=== PATIENT | male | born 1970 | race Caucasian/White ===

== ENCOUNTER → 2018-08-05 | Outpatient (REF) ==
--- NOTE | 2018-08-05 20:19 | Diagnostic Imaging Report ---
INDICATION: Left wrist pain post fall. AP, oblique, and lateral views of the left wrist are obtained. No fracture or acute bony abnormality is seen. Joint spaces are unremarkable. IMPRESSION: Negative left wrist. Dictated by: Dictated on workstation # [id number]
== END | disposition home or self-care (01) ==
LOC: RAD 15:09
PROVIDERS: ATTEND Family Medicine
CPT/HCPCS: 73110

== ENCOUNTER 2019-01-13 13:06 | Outpatient (CLI) | payer BC ==
[~2019-01-13] VITALS: Ht 180.3 cm; Wt 95.3 kg
[~2019-01-13 13:06] MED LIST: METF-479 PO
[2019-01-14] MEDS ORDERED: PANT40TA2 PO (11:48)
== END 2019-01-13 13:19 | disposition home or self-care (01) ==
LOC: PREOP 13:06
PROVIDERS: ATTEND Surgery
DX: Z01.818 Encounter for other preprocedural examination (principal)

== ENCOUNTER 2019-01-14 08:47 | Day surgery (SDC) | payer BC ==
[~2019-01-14] VITALS: Ht 180.3 cm; Wt 95.3 kg
[2019-01-14 09:10] VITALS: BP 139/96
[2019-01-14] MEDS ORDERED: LACTATED RINGERS 1,000 ML IV PRN (09:30)
[2019-01-14] MEDS ORDERED: HURRICAINE EXT TUBE (BENZOCAINE) XX ONE (10:15)
[2019-01-14] MEDS ORDERED: HURRICAINE EXT TUBE (BENZOCAINE) ONE (10:48)
[2019-01-14] MEDS ORDERED: proPOfol 200 MG/20 ML (DIPRIVAN) VIAL IV ONE ×2 (10:49→11:18)
[2019-01-14] MEDS ORDERED: MIDAZOLAM 2 MG/2 ML (VERSED) VIAL ONE (10:50)
--- NOTE | 2019-01-14 11:01 | Progress Note-Pre Operative ---
Pre-Operative Progress Note H&P Reviewed The H&P was reviewed, patient examined and no changes noted. Date Seen by Provider: Jan 14, 2019 Time Seen by Provider: 11: Date H&P Reviewed: Jan 14, 2019 Time H&P Reviewed: 11: Pre-Operative Diagnosis: gerd, hx polyps, diarrhea GERALDINE MATHIS DO Jan 14, 2019 11:01
--- OUTSIDE RECORDS SUMMARY | 2019-01-14 11:02 | XMS REPORT ---
Author Author MEME SHAKEEL [facility] Address [address] [place] [address] Care Team Providers Care Student Teacher Name Role Phone MEMEAMERICO DOUGHERTYHANY Unavailable PROBLEMS Type Condition ICD9-CM Code [id number] Code Onset Dates Condition Status SNOMED Code Problem Allergic rhinitis J30.9 Active 20973794 Problem Hx of renal calculi Z87.442 Active 269123232 Problem GERD (gastroesophageal reflux disease) K21.9 Active 866403232 Problem Hyperlipidemia E78.5 Active 19931879 Problem Right sided sciatica M54.31 Active 34794925 Problem Other elevated white blood cell count D72.828 Active 220508765 Problem Microalbuminuria R80.9 Active 112722807 Problem Type 2 diabetes mellitus with hyperglycemia E11.65 Active 186094866 Problem Onychomycosis B35.1 Active 097869000 Problem Essential hypertension I10 Active 11117363 ALLERGIES No Information ENCOUNTERS Encounter Location Date Diagnosis [place] [id number] [place] [address] 99405- 7024 Jun, Right sided sciatica M54.31 [place] [id number] [place] [address] 81551- 3142 Jun, [facility] [id number] [place] [address] 26004- 0993 May, [facility] [id number] [place] [address] 03450- 3748 May, Right ear pain H92.01 and Acute otitis externa of right ear , unspecified type H60.501 [facility] [id number] [place] [address] 63980- 2360 Mar, [facility] [address] 19173- 8675 Mar, Type 2 diabetes mellitus with hyperglycemia E11.65 ; GERD ( gastroesophageal reflux disease) K21.9 ; Right hip pain M25.551 ; Hyperlipidemia E78.5 and Essential hypertension I10 [place] [id number] [place] [address] 04316- 7965 Mar, [place] [address] 77753- 5974 January, 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 [place] [address] 43330- 7639 January, [place] [address] 26725- 2168 Nov, [place] [address] 16191- 2708 Nov, Other elevated white blood cell count D72.828 [place] [address] 64454- 6905 Nov, Type 2 diabetes mellitus with hyperglycemia E11.65 ; Hx of renal calculi Z87.442 ; Callus L84 ; Hyperlipidemia E78.5 and Essential hypertension I10 [place] [id number] [place] [address] 63148- 2951 Oct, Hx of renal calculi Z87.442 [place] [address] 53653- 0929 Oct, Type 2 diabetes mellitus with hyperglycemia E11.65 ; Hyperlipidemia E78.5 ; GERD (gastroesophageal reflux disease) K21.9 and Essential hypertension I10 [place] [address] 87359- 5113 Jul, [place] [address] 37801- 8468 May, [place] [address] 21110- 5856 Mar, Type 2 diabetes mellitus with hyperglycemia E11.65 ; Hyperlipidemia E78.5 ; GERD (gastroesophageal reflux disease) K21.9 ; Hx of renal calculi Z87.442 ; Essential hypertension I10 ; Encounter for immunization Z23 and Arm numbness R20.0 [place] [id number] [place] [address] 01459- 0946 Mar, Type 2 diabetes mellitus with hyperglycemia E11.65 ; Hyperlipidemia E78.5 and Essential hypertension I10 [place] [address] 30899- 3530 January, Type 2 diabetes mellitus with hyperglycemia E11.65 ; GERD ( gastroesophageal reflux disease) K21.9 ; Hyperlipidemia E78.5 ; Hx of renal calculi Z87.442 ; Allergic rhinitis J30.9 and Essential hypertension I10 [place] [address] 84552- 5646 January, Type 2 diabetes mellitus with hyperglycemia E11.65 [place] [address] 80506- 7255 January, [place] [address] 40634- 7512 Oct, Neuropathic pain M79.2 and Onychomycosis B35.1 [place] [address] 88689- 4234 Aug, [place] [address] 34145- 9421 Aug, Type 2 diabetes mellitus with hyperglycemia E11.65 ; GERD ( gastroesophageal reflux disease) K21.9 ; Hx of renal calculi Z87.442 ; Essential hypertension I10 ; Chronic cough R05 ; Chest pain, unspecified type R07.9 ; Dry skin dermatitis L85.3 ; Allergic rhinitis J30.9 ; Hyperlipidemia E78.5 and Encounter for immunization Z23 [place] [address] 48948- 6732 Aug, [place] [address] [place] [address]- 6273 Jun, [facility] [id number] [place] [address] 04671- 7357 Jun, [facility] [id number] [place] [address] 44653 -9439 Jun, [facility] [id number] [place] [address] 07702- 0238 Jun, [facility] [id number] [place] [address] 80087 -5804 Jun, Rib pain on right side R07.81 [facility] [id number] [place] [address] 75980- 2878 May, Chest pain, unspecified type R07.9 [facility] [id number] [place] [address] 12270- 7520 May, [facility] [id number] [place] [address] 08105 -8791 Mar, Chest pain, unspecified type R07.9 [facility] [id number] [place] [address] 40321- 4197 Mar, [facility] [id number] [place] [address] 88504- 2559 Mar, Type 2 diabetes mellitus with hyperglycemia E11.65 ; GERD ( gastroesophageal reflux disease) K21.9 and Hx of renal calculi Z87.442 [facility] [id number] [place] [address] 53832- 5259 Dec, [facility] [id number] [place] [address] 58520- 4384 Nov, [facility] [id number] [place] [address] 88578- 3563 Nov, Chronic cough R05 [facility] [id number] [place] [address] 68191- 4046 Nov, [facility] [id number] [place] [address] 68625- 4556 Nov, [facility] [id number] [place] [address] 901779- 7642 Nov, [facility] [id number] [place] [address] 74871- 4406 Nov, [facility] [address] 945632- 3517 Nov, Type 2 diabetes mellitus with hyperglycemia E11.65 ; Elevated TSH R94.6 ; Hyperlipidemia E78.5 ; Microalbuminuria R80.9 ; Tinea pedis B35.3 ; Chronic cough R05 ; GERD (gastroesophageal reflux disease) K21.9 ; Allergic rhinitis J30.9 and Hx of renal calculi Z87.442 [facility] [id number] [place] [address] 271268- 6941 Aug, [facility] [address] 80068- 3134 Aug, Hx of renal calculi Z87.442 [facility] [address] 412493- 3674 Aug, [facility] [id number] [place] [address] 75616- 1994 Aug, [facility] [id number] [place] [address] [id number]- 5145 Aug, [facility] [id number] [place] [address] 832889- 3561 Aug, Type 2 diabetes mellitus without complication E11.9 ; Elevated TSH R94.6 and Hyperlipidemia E78.5 [facility] [id number] [place] [address] 73480- 1463 Jul, [facility] [id number] [place] [address] 981627- 3428 Jun, [facility] [address] [address]- 5209 Mar, Abnormal thyroid blood test 794.5 [facility] [address] [place] [address]- 8995 Mar, [facility] [address] [place] [address]- 5336 Mar, Abnormal thyroid blood test 794.5 [facility] [address] [place] [address]- 8031 Mar, Abnormal thyroid blood test 794.5 [facility] [address] [place] [address] 91090- 9267 Mar, [facility] [address] [place] [address]- 8277 Mar, Diabetes type 2, uncontrolled 250.02 and Fungal infection of foot 110.4 [facility] [address] [address]- 0559 Mar, Left flank pain 789.09 [facility] [address] [place] [address]- 6337 January, Left flank pain 789.09 [facility] [address], [place] [address]- 5257 Dec, [facility] [address] [place] [address]- 4775 Dec, [facility] [address] [place] [address]- 8469 Dec, [facility] [address] [place] [address]- 7776 Nov, [facility] [address], [place] [address]- 8673 Nov, [facility] [address] [place] [address]- 7686 Nov, [facility] [place] [facility] [address] [id number] [place] [address]- 7047 Nov, [facility] [place] [facility] [address] [id number] [place] [address]- 3539 Oct, [facility] [place] [facility] [address] [id number] [place] [address]- 9130 30 Oct, 2014 [facility] [place] [facility] [address] [id number] [place] [address]- 3449 15 Oct, 2014 [facility] [place] [facility] [address] [id number] [place] [address]- 8206 15 Oct, 2014 [facility] [place] [facility] [address] [id number] [place] [address]- 5928 Oct, [facility] [place] [facility] [address] [id number] [place] [address]- 2058 Oct, [facility] [place] [facility] [address] [id number] [place] [address]- 7435 Aug, [facility] [place] [facility] [address] [id number] [place] [address]- 8033 15 Aug, 2014 [facility] [place] [facility] [address] [id number] [place] [address]- 8752 17 Jul, 2014 [facility] [place] [facility] [address] [id number] [place] [address]- 6418 17 Jul, 2014 [facility] [place] [facility] [address] [id number] [place] [address]- 2767 14 Jul, 2014 [facility] [place] [facility] [address] [id number] [place] [address]- 6756 14 Jul, 2014 [facility] [place] [facility] [address] [id number] [place] [address]- 6968 19 Jun, 2014 [facility] [place] [facility] [address] [id number] [place] [address]- 3275 19 Jun, 2014 [facility] [place] [facility] [address] [id number] [place] [address]- 9736 Jun, [facility] [place] [facility] [address] [id number] [place] [address]- 0159 Jun, [facility] [place] [facility] [address] [id number] [place] [address]- 9553 Mar, [facility] [place] [facility] [address] [id number] [place] [address]- 5965 Mar, [facility] [place] [facility] [address] [id number] [place] [address]- 3084 Mar, [facility] [place] [facility] [address] [id number] [place] [address]- 8996 Mar, [facility] [place] [facility] [address] [id number] [place] [address]- 3879 Mar, [facility] [place] [facility] [address] [id number] [place] [address]- 9231 Mar, [facility] [place] [facility] [address] [id number] [place] [address]- 5976 Mar, [facility] [place] [facility] [address] [id number] [place] [address]- 9601 Mar, [facility] [place] [facility] [address] [id number] [place] [address]- 3232 Mar, [facility] [place] [facility] [address] [id number] [place] [address]- 0354 Mar, [facility] [place] [facility] [address] [id number] [place] [address]- 6782 Mar, [facility] [place] [facility] [address] [id number] [place] [address]- 0655 Mar, [facility] [place] [facility] [address] [id number] [place] [address]- 8745 Mar, [facility] [place] [facility] [address] [id number] [place] [address]- 0569 Mar, [facility] [place] [facility] [address] [id number] [place] [address]- 3432 Mar, [facility] [address] [id number] [place] [address]- 6359 Mar, [facility] [address] [id number] [place] [address]- 4817 Mar, [facility] [address] [id number] [place] [address]- 7550 Mar, [facility] [address] [id number] [place] [address]- 5476 January, [facility] [address] [id number] [place] [address]- 6077 January, [facility] [address] [id number] [place] [address]- 3636 January, [facility] [address] [id number] [place] [address]- 8604 January, [facility] [address] [id number] [place] [address]- 4706 January, [facility] [address] [id number] [place] [address]- 5233 January, [facility] [address] [id number] [place] [address]- 7693 January, [facility] [place] [facility] [address] [id number] [place] [address]- 8369 January, [facility] [address] [id number] [place] 0409 January, [facility] [place] [facility] [address] [id number] [place] [address]- 6834 January, [facility] [place] [facility] [address] [id number] [place] [address]- 4170 Dec, [facility] [place] [facility] [address] [id number] [place] [address]- 5932 Dec, [facility] [place] [facility] [address] [id number] [place] [address]- 7349 Dec, [facility] [place] [facility] [address] [id number] [place] [address]- 5813 Dec, [facility] [place] [facility] [address] [id number] [place] [address]- 9638 Dec, [facility] [place] [facility] [address] [id number] [place] [address]- 9176 Dec, [facility] [place] [facility] [address] [id number] [place] [address]- 6262 Dec, [facility] [place] [facility] [address] [id number] [place] [address]- 1117 Dec, [facility] [place] [facility] [address] [id number] [place] [address]- 3990 Dec, [facility] [place] [facility] [address] [id number] [place] [address]- 6141 Dec, [facility] [place] [facility] [address] [id number] [place] [address]- 5314 Dec, [facility] [place] [facility] [address] [id number] [place] [address]- 1949 Dec, [facility] [place] [facility] [address] [id number] [place] [address]- 5692 Dec, [facility] [place] [facility] [address] [id number] [place] [address]- 6791 Dec, [facility] [place] [facility] [address] [id number] [place] [address]- 4025 Nov, [facility] [place] [facility] [address] [id number] [place] [address]- 0433 Nov, [facility] [place] [facility] [address] [id number] [place] [address]- 8068 Nov, [facility] [place] [facility] [address] [id number], [place] [address]- 1559 Nov, [facility] [place] [facility] [address] [id number] [place] [address]- 4336 Aug, [facility] [place] [facility] [address] [id number] [place] 2078 Aug, [facility] [place] [facility] [address] [id number] [place] [address]- 8231 Aug, [facility] [place] [facility] [address] [id number] [place] [address]- 2961 Aug, [facility] [place] [facility] [address] [id number] [place] [address]- 7208 Aug, [facility] [place] [facility] [address] [id number] [place] [address]- 1437 Aug, [facility] [place] [facility] [address] [id number] [place] [address]- 9847 Jul, [facility] [place] [facility] [address] [id number] [place] [address]- 9455 Jul, [facility] [place] [facility] [address] [id number] [place] [address]- 8530 May, [facility] [place] [facility] [address] [facility] [id number] [place] [address]- 4021 May, [facility] [place] [facility] [address] [id number], [place] [address]- 7585 Mar, [facility] [place] [facility] [address] [id number] [place] [address]- 4863 Mar, [facility] [place] [facility] [address] [id number] [place] [address]- 2991 Mar, [facility] [place] [facility] [address] [id number] [place] [address]- 5420 Mar, [facility] [place] [facility] [address] [facility] [id number] [place] [address]- 4346 Mar, [facility] [place] [facility] [address] [id number] [place] [address]- 5352 11 Mar, 2013 [facility] [address] [id number] [place] [address]- 8979 11 Mar, 2013 [facility] [place] [facility] [address] [id number] [place] [address]- 2281 10 Mar, 2013 [facility] [address] [id number] [place] [address]- 0876 17 Dec, 2012 [facility] [place] [facility] [address] [id number] [place] [address]- 3416 16 Dec, 2012 [facility] [address] [id number] [place] [address]- 6733 Dec, [facility] [place] [facility] [address] [id number] [place] [address]- 7542 Dec, [facility] [place] [facility] [address] [id number] [place] [address]- 1483 Dec, [facility] [address] [id number] [place] [address]- 3192 Nov, [facility] [address] [id number] [place] [address]- 9028 Nov, [facility] [address] [id number] [place] [address]- 9983 Oct, [facility] [address] [id number] [place] [address]- 7338 Oct, [facility] [place] [facility] [address] [id number] [place] [address]- 3656 Oct, [facility] [place] [facility] [address] [id number] [place] [address]- 9497 Oct, [facility] [place] [facility] [address] [id number] [place] [address]- 5301 Aug, [facility] [place] [facility] [address] [id number] [place] [address]- 5182 Aug, [facility] [place] [facility] [address] [id number] [place] [address]- 3503 Aug, [facility] [place] [facility] [address] [id number] [place] [address]- 5216 Aug, [facility] [place] [facility] [address] [id number] [place] [address]- 8916 Aug, [facility] [place] [facility] [address] [id number] [place] [address]- 0529 Aug, [facility] [place] [facility] [address] [id number] [place] [address]- 4860 Jul, [facility] [place] [facility] [address] [id number] [place] 8755 Jul, [facility] [place] [facility] [address] [facility] [id number] [place] [address]- 8151 Jun, [facility] [place] [facility] [address] [id number] [place] [address]- 8419 Jun, [facility] [place] [facility] [address] [id number] [place] [address]- 9839 May, [facility] [place] [facility] [address] [facility] [id number] [place] [address]- 0266 May, [facility] [place] [facility] [address] [id number], [place] [address] May, [facility] [place] [facility] [address] [id number], [place] [address] Mar, [facility] [place] [facility] [address] [id number] [place] [address] Mar, [facility] [place] [facility] [address] [facility] [id number] [place] [address] Mar, [facility] [place] [facility] [address] [facility] [id number] [place] [address] Mar, [facility] [place] [facility] [address] [id number] [place] [address] 07 Mar, 2012 [facility] [address] [id number] [place] [address] Mar, [facility] [place] [facility] [address] [id number] [place] [address] Mar, [facility] [address] [id number] [place] [address] January, [facility] [address] [id number] [place] [address] January, [facility] [address] [id number] [place] [address] January, [facility] [address] [id number] [place] [address] January, [facility] [address] [id number] [place] [address] January, [facility] [address] [id number] [place] [address] Nov, [facility] [address] [id number] [place] [address] Nov, [facility] [address] [id number] [place] [address] Nov, [facility] [place] [facility] [address] [id number] [place] [address] Nov, [facility] [address] [id number] [place] [address] Nov, [facility] [place] [facility] [address] [id number] [place] [address] Oct, [facility] [place] [facility] [address] [id number] [place] [address] Oct, [facility] [place] [facility] [address] [id number] [place] [address] Aug, [facility] [address] [facility] [id number], [place] [address] Aug, [facility] [address] [id number] [address] Aug, [facility] [address] [facility] [id number], [place] [address] Aug, [facility] [address] [id number], [place] [address] Jul, [facility] [address] [facility] [id number][place] [address] Jul, [facility] [address] [facility] [id number], [place] [address] Mar, IMMUNIZATIONS No Known Immunizations SOCIAL HISTORY Never Assessed REASON FOR VISIT Requests return call PLAN OF CARE VITAL SIGNS MEDICATIONS Medication Instructions Dosage Frequency Start Date End Date Duration Status Pen [place] 32G X 4 MM use as directed Dec, Active RESULTS No Results PROCEDURES No Known procedures INSTRUCTIONS MEDICATIONS ADMINISTERED No Known Medications MEDICAL (GENERAL) HISTORY Type Description Date Medical History diabetes mellitus Medical History hypertension Medical History kidney stones Medical History acid reflux Medical History chronic pain Medical History Dyslipidemia Hospitalization History Kidney [place], [place]
--- OUTSIDE RECORDS SUMMARY | 2019-01-14 11:03 | XMS REPORT ---
Author Author VLADO KENYON Organization [facility] Address [address] [place] [address] Care Team Providers Care Recording Artist Name Role Phone VALDO KENYON Unavailable PROBLEMS Type Condition ICD9-CM Code AAN56-HE Code Onset Dates Condition Status SNOMED Code Problem Allergic rhinitis J30.9 Active 51600010 Problem Hx of renal calculi Z87.442 Active 714500297 Problem GERD (gastroesophageal reflux disease) K21.9 Active 485258691 Problem Hyperlipidemia E78.5 Active 65619283 Problem Right sided sciatica M54.31 Active 66690432 Problem Other elevated white blood cell count D72.828 Active 437462791 Problem Microalbuminuria R80.9 Active 321891938 Problem Type 2 diabetes mellitus with hyperglycemia E11.65 Active 030092046 Problem Onychomycosis B35.1 Active 824488036 Problem Essential hypertension I10 Active 35002991 ALLERGIES No Information ENCOUNTERS Encounter Location Date Diagnosis [place] [id number] [place] [address] 47576- 6695 13 Jun, 2018 Right sided sciatica M54.31 [facility] [id number] [place] [address] 19907- 5797 Jun, [facility] [address] [place] [id number] [place] [address] 26321- 3768 May, [facility] [id number] [place] [address] 10275- 1122 May, Right ear pain H92.01 and Acute otitis externa of right ear , unspecified type H60.501 [facility] [id number] [place] [address] 84243- 3486 Mar, [facility] [address] [place] [address] [id number] [place] [address] 14912- 6812 Mar, Type 2 diabetes mellitus with hyperglycemia E11.65 ; GERD ( gastroesophageal reflux disease) K21.9 ; Right hip pain M25.551 ; Hyperlipidemia E78.5 and Essential hypertension I10 [place] [address] 30705- 2662 Mar, [place] [address] 85046- 0072 January, 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 [place] [address] 54604- 8507 January, [place] [address] 78412- 4571 Nov, [place] [address] 45242- 0070 Nov, Other elevated white blood cell count D72.828 [place] [address] 91566- 5569 Nov, Type 2 diabetes mellitus with hyperglycemia E11.65 ; Hx of renal calculi Z87.442 ; Callus L84 ; Hyperlipidemia E78.5 and Essential hypertension I10 [place] [address] [place] [id number] [place] [address] 04505- 2644 Oct, Hx of renal calculi Z87.442 [place] [address] [place] [id number] [place] [address] 76986- 1946 Oct, Type 2 diabetes mellitus with hyperglycemia E11.65 ; Hyperlipidemia E78.5 ; GERD (gastroesophageal reflux disease) K21.9 and Essential hypertension I10 [place] [address] 87163- 6962 Jul, [place] [address] 81983- 0358 May, [place] [address] 82485- 4639 Mar, Type 2 diabetes mellitus with hyperglycemia E11.65 ; Hyperlipidemia E78.5 ; GERD (gastroesophageal reflux disease) K21.9 ; Hx of renal calculi Z87.442 ; Essential hypertension I10 ; Encounter for immunization Z23 and Arm numbness R20.0 [place] [address] 52093- 7475 Mar, Type 2 diabetes mellitus with hyperglycemia E11.65 ; Hyperlipidemia E78.5 and Essential hypertension I10 [place] [address] 08911- 6862 January, Type 2 diabetes mellitus with hyperglycemia E11.65 ; GERD ( gastroesophageal reflux disease) K21.9 ; Hyperlipidemia E78.5 ; Hx of renal calculi Z87.442 ; Allergic rhinitis J30.9 and Essential hypertension I10 [place] [address] 92052- 3328 January, Type 2 diabetes mellitus with hyperglycemia E11.65 [place] [address] 18013- 7751 January, [place] [address] 08837- 0076 Oct, Neuropathic pain M79.2 and Onychomycosis B35.1 [place] [address] 72555- 0178 Aug, [place] [address] 81370- 7828 Aug, Type 2 diabetes mellitus with hyperglycemia E11.65 ; GERD ( gastroesophageal reflux disease) K21.9 ; Hx of renal calculi Z87.442 ; Essential hypertension I10 ; Chronic cough R05 ; Chest pain, unspecified type R07.9 ; Dry skin dermatitis L85.3 ; Allergic rhinitis J30.9 ; Hyperlipidemia E78.5 and Encounter for immunization Z23 [place] [address] 28210- 9173 Aug, [place] [address] [place] [address]- 3713 Jun, [facility] [address] [place] [id number] [place] [address] 12788- 0050 Jun, [facility] [address] [address] [id number] [place] [address] 59544 -7839 Jun, [facility] [address] [place] [address] [id number] [place] [address] 08454- 3597 Jun, [facility] [id number] [place] [address] 96783 -9673 Jun, Rib pain on right side R07.81 [facility] [address] 66354- 1469 May, Chest pain, unspecified type R07.9 [facility] [address] [place] [address] [id number] [place] [address] 16926- 6930 May, [facility] [id number] [place] [address] 79034 -1829 Mar, Chest pain, unspecified type R07.9 [facility] [address] [place] [address] [id number] [place] [address] 82278- 5634 Mar, [facility] [address] [place] [address] [id number] [place] [address] 84752- 9890 Mar, Type 2 diabetes mellitus with hyperglycemia E11.65 ; GERD ( gastroesophageal reflux disease) K21.9 and Hx of renal calculi Z87.442 [facility] [address] [place] [address] [id number] [place] [address] 50318- 1947 Dec, [facility] [address] [place] [address] [id number] [place] [address] 43785- 7953 Nov, [facility] [address] [place] [address] [id number] [place] [address] 00363- 4634 Nov, Chronic cough R05 [facility] [address] [place] [id number] [place] [address] 00444- 2789 Nov, [facility] [id number] [place] [address] 20041- 1162 Nov, [facility] [address] [place] [address] [id number] [place] [address] 92758- 4771 Nov, [facility] [address] [place] [address] [id number] [place] [address] 07401- 9168 Nov, [facility] [address] 10590- 4687 Nov, Type 2 diabetes mellitus with hyperglycemia E11.65 ; Elevated TSH R94.6 ; Hyperlipidemia E78.5 ; Microalbuminuria R80.9 ; Tinea pedis B35.3 ; Chronic cough R05 ; GERD (gastroesophageal reflux disease) K21.9 ; Allergic rhinitis J30.9 and Hx of renal calculi Z87.442 [facility] [address] [place] [id number] [place] [address] 59758- 9003 Aug, [facility] [address] [place] [id number] [place] [address] 69122- 7327 Aug, Hx of renal calculi Z87.442 [facility] [address] [place] [id number] [place] [address] 91850- 8857 Aug, [facility] [id number] [place] [address] 75043- 4511 Aug, [facility] [address] [place] [id number] [place] [address] 59388- 9942 Aug, [facility] [address] [place] [id number] [place] [address] 32222- 9884 Aug, Type 2 diabetes mellitus without complication E11.9 ; Elevated TSH R94.6 and Hyperlipidemia E78.5 [facility] [address] [place] [id number] [place] [address] 040340- 0099 Jul, [facility] [id number] [place] [address] 065977- 0534 Jun, [facility] [address] [place] [id number] [address]- 8508 Mar, Abnormal thyroid blood test 794.5 [facility] [address] [address]- 9364 Mar, [facility] [address] [address]- 8223 Mar, Abnormal thyroid blood test 794.5 [facility] [id number] [place] [address] 95279- 0546 Mar, Abnormal thyroid blood test 794.5 [facility] [id number] [place] [address] 47070- 9261 Mar, [facility] [address] [id number] [address]- 7049 Mar, Diabetes type 2, uncontrolled 250.02 and Fungal infection of foot 110.4 [facility] [address] [address]- 8452 Mar, Left flank pain 789.09 [facility] [address] [address]- 1538 January, Left flank pain 789.09 [facility] [address] [address]- 1610 Dec, [facility] [address] [place] [address]- 2691 Dec, [facility] [address] [address]- 2525 Dec, [facility] [address] [address]- 3475 Nov, [facility] [address] [address]- 9095 Nov, [facility] [address] 3846 Nov, [facility] [place] [facility] [address] [id number] [place] [address]- 8047 Nov, [facility] [place] [facility] [address] [id number] [place] [address]- 3804 Oct, [facility] [place] [facility] [address] [id number] [place] [address]- 5240 30 Oct, 2014 [facility] [place] [facility] [address] [id number] [place] [address]- 6260 15 Oct, 2014 [facility] [place] [facility] [address] [id number] [place] [address]- 4049 15 Oct, 2014 [facility] [place] [facility] [address] [id number] [place] [address]- 3004 Oct, [facility] [place] [facility] [address] [id number] [place] [address]- 3905 Oct, [facility] [place] [facility] [address] [id number] [place] [address]- 7141 15 Aug, 2014 [facility] [place] [facility] [address] [id number] [place] [address]- 0456 15 Aug, 2014 [facility] [place] [facility] [address] [id number] [place] [address]- 6738 17 Jul, 2014 [facility] [place] [facility] [address] [id number] [place] [address]- 2795 17 Jul, 2014 [facility] [place] [facility] [address] [id number] [place] [address]- 0696 14 Jul, 2014 [facility] [place] [facility] [address] [id number] [place] [address]- 3645 14 Jul, 2014 [facility] [place] [facility] [address] [id number] [place] [address]- 1565 19 Jun, 2014 [facility] [place] [facility] [address] [id number] [place] [address]- 9178 19 Jun, 2014 [facility] [place] [facility] [address] [id number] [place] [address]- 4269 Jun, [facility] [place] [facility] [address] [id number] [place] [address]- 7961 Jun, [facility] [place] [facility] [address] [id number] [place] [address]- 9555 Mar, [facility] [place] [facility] [address] [id number] [place] [address]- 0979 Mar, [facility] [place] [facility] [address] [id number] [place] [address]- 7924 Mar, [facility] [place] [facility] [address] [id number] [place] [address]- 5949 Mar, [facility] [place] [facility] [address] [id number] [place] [address]- 4069 Mar, [facility] [place] [facility] [address] [id number] [place] [address]- 8612 Mar, [facility] [place] [facility] [address] [id number] [place] [address]- 7610 Mar, [facility] [place] [facility] [address] [id number] [place] [address]- 4885 Mar, [facility] [place] [facility] [address] [id number] [place] [address]- 9217 Mar, [facility] [place] [facility] [address] [id number] [place] [address]- 0940 Mar, [facility] [place] [facility] [address] [id number], [place] [address]- 1572 Mar, [facility] [place] [facility] [address] [id number] [place] [address]- 6123 Mar, [facility] [place] [facility] [address] [id number] [place] [address]- 7739 Mar, [facility] [place] [facility] [address] [id number] [place] [address]- 2154 Mar, [facility] [place] [facility] [address] [id number] [place] [address]- 3727 Mar, [facility] [place] [facility] [address] [id number] [place] [address]- 7167 Mar, [facility] [place] [facility] [address] [id number] [place] [address]- 5150 Mar, [facility] [place] [facility] [address] [id number] [place] [address]- 8732 Mar, [facility] [place] [facility] [address] [id number] [place] [address]- 8974 January, [facility] [place] [facility] [address] [id number] [place] [address]- 5642 January, [facility] [place] [facility] [address] [id number] [place] [address]- 3975 January, [facility] [place] [facility] [address] [id number] [place] [address]- 4405 January, [facility] [place] [facility] [address] [id number] [place] [address]- 1394 January, [facility] [place] [facility] [address] [id number] [place] [address]- 5963 January, [facility] [place] [facility] [address] [id number] [place] [address]- 7896 January, [facility] [place] [facility] [address] [id number] [place] [address]- 3517 January, [facility] [place] [facility] [address] [id number] [place] [address]- 3325 January, [facility] [place] [facility] [address] [id number] [place] 4468 January, [facility] [place] [facility] [address] [id number] [place] [address]- 9666 Dec, [facility] [place] [facility] [address] [id number] [place] [address]- 1004 Dec, [facility] [place] [facility] [address] [id number] [place] [address]- 5103 Dec, [facility] [place] [facility] [address] [id number] [place] [address]- 5774 Dec, [facility] [place] [facility] [address] [id number] [place] [address]- 9311 Dec, [facility] [place] [facility] [address] [id number] [place] [address]- 6280 Dec, [facility] [address] [id number] [place] [address]- 5219 Dec, [facility] [place] [facility] [address] [id number] [place] [address]- 1378 Dec, [facility] [address] [id number] [place] [address]- 8578 Dec, [facility] [place] [facility] [address] [id number] [place] [address]- 7924 Dec, [facility] [place] [facility] [address] [id number] [place] [address]- 8430 Dec, [facility] [place] [facility] [address] [id number] [place] [address]- 8143 Dec, [facility] [place] [facility] [address] [id number] [place] [address]- 0366 Dec, [facility] [place] [facility] [address] [id number] [place] [address]- 2759 Dec, [facility] [place] [facility] [address] [id number] [place] [address]- 0981 Nov, [facility] [place] [facility] [address] [id number] [place] [address]- 0608 Nov, [facility] [place] [facility] [address] [id number] [place] [address]- 6693 Nov, [facility] [place] [facility] [address] [id number] [place] [address]- 8462 Nov, [facility] [place] [facility] [address] [id number] [place] [address]- 8609 Aug, [facility] [place] [facility] [address] [id number] [place] [address]- 4699 Aug, [facility] [place] [facility] [address] [id number] [place] [address]- 2448 Aug, [facility] [place] [facility] [address] [id number] [place] [address]- 1957 Aug, [facility] [place] [facility] [address] [id number] [place] 0582 Aug, [facility] [place] [facility] [address] [id number] [place] [address]- 5266 Aug, [facility] [place] [facility] [address] [id number] [place] [address]- 9728 Jul, [facility] [place] [facility] [address] [id number] [place] [address]- 6818 Jul, [facility] [place] [facility] [address] [id number] [place] [address]- 4312 May, [facility] [place] [facility] [address] [id number] [place] [address]- 1725 May, [facility] [place] [facility] [address] [id number], [place] [address]- 3704 Mar, [facility] [place] [facility] [address] [id number] [place] [address]- 2064 Mar, [facility] [place] [facility] [address] [id number] [place] [address]- 8871 Mar, [facility] [place] [facility] [address] [id number] [place] [address]- 3252 Mar, [facility] [place] [facility] [address] [id number] [place] [address]- 8043 Mar, [facility] [place] [facility] [address] [id number] [place] [address]- 3674 11 Mar, 2013 [facility] [address] [id number] [place] [address]- 9268 11 Mar, 2013 [facility] [address] [id number] [place] [address]- 3510 10 Mar, 2013 [facility] [address] [id number] [place] [address]- 7264 17 Dec, 2012 [facility] [address] [id number] [place] [address]- 6006 16 Dec, 2012 [facility] [address] [id number] [place] [address]- 6293 15 Dec, 2012 [facility] [address] [id number] [place] [address]- 4270 Dec, [facility] [address] [id number] [place] [address]- 6997 Dec, [facility] [address] [id number] [place] [address]- 5299 Nov, [facility] [address] [id number] [place] [address]- 4793 Nov, [facility] [address] [id number] [place] [address]- 8044 Oct, [facility] [address] [id number] [place] [address]- 7671 Oct, [facility] [address] [id number] [place] [address]- 4037 Oct, [facility] [address] [id number] [place] [address]- 9326 Oct, [facility] [address] [id number] [place] [address]- 9976 Aug, [facility] [address] [id number] [place] [address]- 0861 Aug, [facility] [place] [facility] [address] [id number] [place] [address]- 0645 Aug, [facility] [place] [facility] [address] [id number] [place] [address]- 3765 Aug, [facility] [place] [facility] [address] [id number] [place] 3134 Aug, [facility] [place] [facility] [address] [id number] [place] [address]- 2744 Aug, [facility] [place] [facility] [address] [id number] [place] [address]- 8190 Jul, [facility] [place] [facility] [address] [id number] [place] [address]- 9974 Jul, [facility] [place] [facility] [address] [id number] [place] [address]- 4538 Jun, [facility] [place] [facility] [address] [id number] [place] [address]- 2062 Jun, [facility] [place] [facility] [address] [id number] [place] [address]- 2527 May, [facility] [place] [facility] [address] [id number] [place] [address]- 7708 May, [facility] [place] [facility] [address] [id number] [place] [address]- 3711 May, [facility] [place] [facility] [address] [id number], [place] [address]- 4072 Mar, [facility] [place] [facility] [address] [id number] [place] [address]- 9741 Mar, [facility] [place] [facility] [address] [id number] [place] [address]- 2140 Mar, [facility] [place] [facility] [address] [id number] [place] [address]- 7138 Mar, [facility] [place] [facility] [address] [id number] [place] [address]- 0070 07 Mar, 2012 [facility] [place] [facility] [address] [id number] [place] [address] Mar, [facility] [place] [facility] [address] [id number] [place] [address] Mar, [facility] [place] [facility] [address] [id number] [place] [address] January, [facility] [place] [facility] [address] [id number] [place] [address] January, [facility] [place] [facility] [address] [id number] [place] [address] January, [facility] [place] [facility] [address] [id number] [place] [address] January, [facility] [place] [facility] [address] [id number] [place] [address] January, [facility] [place] [facility] [address] [id number] [place] [address] Nov, [facility] [place] [facility] [address] [id number] [place] [address] 14 Nov, 2011 [facility] [place] [facility] [address] [id number] [place] [address] Nov, [facility] [place] [facility] [address] [id number] [place] [address] 08 Nov, 2011 [facility] [place] [facility] [address] [id number] [place] [address] Nov, [facility] [place] [facility] [address] [id number] [place] [address] Oct, [facility] [place] [facility] [address] [id number] [place] [address] Oct, [facility] [place] [facility] [address] [id number] [place] [address] Aug, [facility] [address] [id number], [place] [address] Aug, [facility] [address] [id number] [address] Aug, [facility] [address] [id number], [place] [address] Aug, [facility] [id number], [place] [address] Jul, [facility] [address] [id number] [address] Jul, [facility] [address] [id number] [address] Mar, IMMUNIZATIONS No Known Immunizations SOCIAL HISTORY Never Assessed REASON FOR VISIT Requests return call PLAN OF CARE VITAL SIGNS MEDICATIONS Unknown Medications RESULTS No Results PROCEDURES No Known procedures INSTRUCTIONS MEDICATIONS ADMINISTERED No Known Medications MEDICAL (GENERAL) HISTORY Type Description Date Medical History diabetes mellitus Medical History hypertension Medical History kidney stones Medical History acid reflux Medical History chronic pain Medical History Dyslipidemia Hospitalization History Kidney stones, [facility]
--- OUTSIDE RECORDS SUMMARY | 2019-01-14 11:03 | XMS REPORT ---
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 Name Role Phone VALDO KENYON Unavailable PROBLEMS Type Condition ICD9-CM Code YMC37-FR Code Onset Dates Condition Status SNOMED Code Problem Allergic rhinitis J30.9 Active 50038349 Problem Hx of renal calculi Z87.442 Active 459413384 Problem GERD (gastroesophageal reflux disease) K21.9 Active 492295488 Problem Hyperlipidemia E78.5 Active 13651939 Problem Right sided sciatica M54.31 Active 55607532 Problem Other elevated white blood cell count D72.828 Active 570752104 Problem Microalbuminuria R80.9 Active 909838675 Problem Type 2 diabetes mellitus with hyperglycemia E11.65 Active 757177943 Problem Onychomycosis B35.1 Active 211117550 Problem Essential hypertension I10 Active 20603276 ALLERGIES Substance Reaction Event Type Date Status Metformin Diarrhea Drug Allergy May, Active ENCOUNTERS Encounter Location Date Diagnosis [facility] [id number] [address] Jun, Right sided sciatica M54.31 [facility] [id number] [address] 7295 Jun, [facility] [address] [address] May, [facility] [address] [address] May, Right ear pain H92.01 and Acute otitis externa of right ear , unspecified type H60.501 [facility] [id number] [address] 39[address] Mar, [facility] [id number] [place] [address] 62416- 4087 Mar, Type 2 diabetes mellitus with hyperglycemia E11.65 ; GERD ( gastroesophageal reflux disease) K21.9 ; Right hip pain M25.551 ; Hyperlipidemia E78.5 and Essential hypertension I10 [place] [id number] [place] [address] 27249- 9114 Mar, [place] [address] [address]- [address]99 January, 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 [place] [address] [address]- 3917 January, [place] [address] [address]45- 2907 Nov, [place] [address] [address]- 2699 Nov, Other elevated white blood cell count D72.828 [place] [address] [address]- 6463 Nov, Type 2 diabetes mellitus with hyperglycemia E11.65 ; Hx of renal calculi Z87.442 ; Callus L84 ; Hyperlipidemia E78.5 and Essential hypertension I10 [place] [id number] [place] [address] 82571- 1806 Oct, Hx of renal calculi Z87.442 [place] [id number] [place] [address] 30667- 4755 Oct, Type 2 diabetes mellitus with hyperglycemia E11.65 ; Hyperlipidemia E78.5 ; GERD (gastroesophageal reflux disease) K21.9 and Essential hypertension I10 [place] [address] [address]- 1092 Jul, [place] [id number] [place] [address] 99317- 0536 May, [place] [address] [id number]- 2546 Mar, Type 2 diabetes mellitus with hyperglycemia E11.65 ; Hyperlipidemia E78.5 ; GERD (gastroesophageal reflux disease) K21.9 ; Hx of renal calculi Z87.442 ; Essential hypertension I10 ; Encounter for immunization Z23 and Arm numbness R20.0 [place] [id number] [place] [address] 90059- 1017 Mar, Type 2 diabetes mellitus with hyperglycemia E11.65 ; Hyperlipidemia E78.5 and Essential hypertension I10 [place] [id number] [place] [address] 65049- 7736 January, Type 2 diabetes mellitus with hyperglycemia E11.65 ; GERD ( gastroesophageal reflux disease) K21.9 ; Hyperlipidemia E78.5 ; Hx of renal calculi Z87.442 ; Allergic rhinitis J30.9 and Essential hypertension I10 [place] [id number] [place] [address] 25853- 8359 January, Type 2 diabetes mellitus with hyperglycemia E11.65 [place] [address] [address]- 5568 January, [place] [address] 69289- 4365 Oct, Neuropathic pain M79.2 and Onychomycosis B35.1 [place] [id number] [place] [address] 75736- 1414 Aug, [place] [address] 07076- 2235 Aug, Type 2 diabetes mellitus with hyperglycemia E11.65 ; GERD ( gastroesophageal reflux disease) K21.9 ; Hx of renal calculi Z87.442 ; Essential hypertension I10 ; Chronic cough R05 ; Chest pain, unspecified type R07.9 ; Dry skin dermatitis L85.3 ; Allergic rhinitis J30.9 ; Hyperlipidemia E78.5 and Encounter for immunization Z23 [place] [id number] [place] [address] 92003- 3213 Aug, [facility] [id number] [place] [address] 80981- 7949 Jun, [facility] [id number] [place] [address] 10059- 7982 Jun, [facility] [id number] [place] [address] 63961 -6763 Jun, [facility] [address] 27159- 3663 Jun, [facility] [id number] [place] [address] 34532 -7219 Jun, Rib pain on right side R07.81 [facility] [id number] [place] [address] 56146- 6476 May, Chest pain, unspecified type R07.9 [facility] [address] 70064- 6842 May, [facility] [id number] [place] [address] 69691 -3353 Mar, Chest pain, unspecified type R07.9 [facility] [id number] [place] [address] 53713- 5104 Mar, [facility] [id number] [place] [address] 73887- 2477 Mar, Type 2 diabetes mellitus with hyperglycemia E11.65 ; GERD ( gastroesophageal reflux disease) K21.9 and Hx of renal calculi Z87.442 [facility] [id number] [place] [address] 35449- 2252 Dec, [facility] [address] 38437- 7648 Nov, [facility] [id number] [place] [address] 18145- 4305 Nov, Chronic cough R05 [facility] [address] 09742- 7048 Nov, [facility] [id number] [place] [address] 56814- 2509 Nov, [facility] [id number] [place] [address] 94413- 0538 Nov, [facility] [id number] [place] [address] 203786- 8244 Nov, [facility] [address] 891695- 2783 Nov, Type 2 diabetes mellitus with hyperglycemia E11.65 ; Elevated TSH R94.6 ; Hyperlipidemia E78.5 ; Microalbuminuria R80.9 ; Tinea pedis B35.3 ; Chronic cough R05 ; GERD (gastroesophageal reflux disease) K21.9 ; Allergic rhinitis J30.9 and Hx of renal calculi Z87.442 [place] [address] 61494- 1968 Aug, [facility] [id number] [place] [address] 85659- 0857 Aug, Hx of renal calculi Z87.442 [place] [id number] [place] [address] 924939- 6239 Aug, [facility] [id number] [place] [address] 620123- 5740 Aug, [facility] [id number] [place] [address] 46426- 8175 Aug, [facility] [id number] [place] [address] 035750- 6727 Aug, Type 2 diabetes mellitus without complication E11.9 ; Elevated TSH R94.6 and Hyperlipidemia E78.5 [facility] [id number] [place] [address] 218959- 0576 Jul, [facility] [id number] [place] [address] 560143- 0516 Jun, [facility] [id number] [address]- 8394 Mar, Abnormal thyroid blood test 794.5 [facility] [address] [address]- 9540 Mar, [facility] [address] [address]- 0130 Mar, Abnormal thyroid blood test 794.5 [facility] [address] [address]- 7038 Mar, Abnormal thyroid blood test 794.5 [facility] [id number] [place] [address] 98081- 6745 Mar, [facility] [address] [address]- 0373 Mar, Diabetes type 2, uncontrolled 250.02 and Fungal infection of foot 110.4 [facility] [address] [address]- 9884 Mar, Left flank pain 789.09 [facility] [id number] [address]- 4084 January, Left flank pain 789.09 [facility] [address] [address]- 0784 Dec, [facility] [address] [address]- 7051 Dec, [facility] [id number] [address]- 8692 Dec, [facility] [address] [address]- 6186 Nov, [facility] [address] [address]- 9246 Nov, [facility] [address] [address]- 3455 Nov, [facility] [place] [facility] [address] [id number] [place] [address]- 2909 Nov, [facility] [place] [facility] [address] [id number] [place] [address]- 6287 Oct, [facility] [place] [facility] [address] [facility] [id number] [place] [address]- 1258 Oct, [facility] [place] [facility] [address] [id number] [place] [address]- 1562 Oct, [facility] [place] [facility] [address] [id number] [place] [address]- 5075 Oct, [facility] [place] [facility] [address] [facility] [id number] [place] [address]- 6494 Oct, [facility] [place] [facility] [address] [id number] [place] [address]- 6371 Oct, [facility] [place] [facility] [address] [id number] [place] [address]- 5851 Aug, [facility] [place] [facility] [address] [id number] [place] [address]- 4689 Aug, [facility] [place] [facility] [address] [facility] [id number] [place] [address]- 7895 Jul, [facility] [place] [facility] [address] [id number] [place] [address]- 6428 17 Jul, 2014 [facility] [place] [facility] [address] [id number] [place] [address]- 8505 14 Jul, 2014 [facility] [place] [facility] [address] [id number] [place] [address]- 1229 14 Jul, 2014 [facility] [place] [facility] [address] [facility] [id number] [place] [address]- 9725 19 Jun, 2014 [facility] [place] [facility] [address] [id number] [place] [address]- 7346 19 Jun, 2014 [facility] [place] [facility] [address] [id number] [place] [address]- 2792 Jun, [facility] [place] [facility] [address] [id number] [place] [address]- 8804 Jun, [facility] [place] [facility] [address] [id number] [place] [address]- 5930 Mar, [facility] [place] [facility] [address] [id number] [place] [address]- 3862 Mar, [facility] [place] [facility] [address] [id number] [place] [address]- 3851 Mar, [facility] [place] [facility] [address] [id number] [place] [address]- 9218 15 Mar, 2014 [facility] [place] [facility] [address] [id number] [place] [address]- 4940 Mar, [facility] [place] [facility] [address] [id number] [place] [address]- 5811 Mar, [facility] [place] [facility] [address] [id number] [place] [address]- 4248 Mar, [facility] [place] [facility] [address] [id number] [place] [address]- 4750 Mar, [facility] [place] [facility] [address] [id number] [place] [address]- 5911 Mar, [facility] [place] [facility] [address] [id number] [place] [address]- 2164 Mar, [facility] [place] [facility] [address] [id number] [place] [address]- 9578 Mar, [facility] [place] [facility] [address] [id number] [place] [address]- 9276 Mar, [facility] [place] [facility] [address] [id number] [place] [address]- 1708 Mar, [facility] [place] [facility] [address] [id number] [place] [address]- 8075 Mar, [facility] [place] [facility] [address] [id number] [place] [address]- 6165 Mar, [facility] [place] [facility] [address] [id number] [place] [address]- 4539 Mar, [facility] [place] [facility] [address] [id number] [place] [address]- 7632 Mar, [facility] [place] [facility] [address] [id number] [place] [address]- 4321 Mar, [facility] [place] [facility] [address] [id number] [place] [address]- 7367 January, [facility] [place] [facility] [address] [id number] [place] [address]- 8305 January, [facility] [place] [facility] [address] [id number] [place] [address]- 5539 January, [facility] [place] [facility] [address] [id number] [place] [address]- 8761 January, [facility] [place] [facility] [address] [id number] [place] [address]- 3424 January, [facility] [place] [facility] [address] [id number] [place] [address]- 7788 January, [facility] [place] [facility] [address] [id number] [place] [address]- 3150 January, [facility] [place] [facility] [address] [id number] [place] [address]- 5062 January, [facility] [place] [facility] [address] [id number] [place] [address]- 5918 January, [facility] [place] [facility] [address] [id number] [place] [address]- 8349 January, [facility] [place] [facility] [address] [id number] [place] 4124 Dec, [facility] [place] [facility] [address] [id number] [place] [address]- 2855 Dec, [facility] [place] [facility] [address] [id number] [place] [address]- 0047 Dec, [facility] [place] [facility] [address] [id number] [place] [address]- 1915 Dec, [facility] [place] [facility] [address] [id number] [place] [address]- 8889 Dec, [facility] [place] [facility] [address] [id number] [place] [address]- 3493 Dec, [facility] [place] [facility] [address] [id number] [place] [address]- 7541 Dec, [facility] [place] [facility] [address] [id number] [place] [address]- 6873 Dec, [facility] [place] [facility] [address] [id number] [place] [address]- 8935 Dec, [facility] [place] [facility] [address] [id number] [place] [address]- 0919 Dec, [facility] [place] [facility] [address] [id number] [place] [address]- 3034 Dec, [facility] [place] [facility] [address] [id number] [place] [address]- 0661 Dec, [facility] [place] [facility] [address] [id number] [place] [address]- 1614 Dec, [facility] [place] [facility] [address] [id number] [place] [address]- 7580 Dec, [facility] [place] [facility] [address] [id number] [place] [address]- 9357 Nov, [facility] [place] [facility] [address] [id number] [place] [address]- 3364 Nov, [facility] [place] [facility] [address] [id number] [place] [address]- 4495 Nov, [facility] [place] [facility] [address] [id number] [place] [address] 2546 Nov, [facility] [address] [id number] [place] [address]- 0086 Aug, [facility] [place] [facility] [address] [id number] [place] [address]- 5706 Aug, [facility] [place] [facility] [address] [id number] [place] [address] 2540 Aug, [facility] [place] [facility] [address] [id number] [place] [address]- 2543 Aug, [facility] [place] [facility] [address] [id number] [place] [address]- 9717 Aug, [facility] [place] [facility] [address] [id number] [place] [address]- 2753 Aug, [facility] [place] [facility] [address] [id number] [place] [address]- 5192 Jul, [facility] [place] [facility] [address] [id number] [place] [address]- 9356 Jul, [facility] [place] [facility] [address] [id number] [place] [address]- 2546 May, [facility] [place] [facility] [address] [id number] [place] [address]- 8746 May, [facility] [place] [facility] [address] [id number] [place] [address]- 2548 Mar, [facility] [place] [facility] [address] [id number] [place] [address]- 2546 Mar, [facility] [place] [facility] [address] [id number] [place] [address]- 2546 Mar, [facility] [place] [facility] [address] [id number] [place] [address]- 2546 Mar, [facility] [place] [facility] [address] [id number] [place] [address]- 7025 Mar, [facility] [address] [id number] [place] [address]- 3784 Mar, [facility] [place] [facility] [address] [id number] [place] [address]- 2962 Mar, [facility] [place] [facility] [address] [id number] [place] [address]- 9266 Mar, [facility] [place] [facility] [address] [id number] [place] [address]- 9047 17 Dec, 2012 [facility] [place] [facility] [address] [id number] [place] [address]- 6137 16 Dec, 2012 [facility] [place] [facility] [address] [id number] [place] [address]- 7215 15 Dec, 2012 [facility] [place] [facility] [address] [id number] [place] [address]- 8505 Dec, [facility] [place] [facility] [address] [id number] [place] [address]- 2310 Dec, [facility] [place] [facility] [address] [id number] [place] [address]- 2818 Nov, [facility] [place] [facility] [address] [id number] [place] [address]- 9089 Nov, [facility] [place] [facility] [address] [id number] [place] [address]- 4300 Oct, [facility] [place] [facility] [address] [id number] [place] [address]- 0922 Oct, [facility] [place] [facility] [address] [id number] [place] [address]- 0292 Oct, [facility] [place] [facility] [address] [id number] [place] [address]- 4547 Oct, [facility] [place] [facility] [address] [id number] [place] [address]- 9144 Aug, [facility] [place] [facility] [address] [id number] [place] [address]- 1775 Aug, [facility] [place] [facility] [address] [id number] [place] [address]- 9767 Aug, [facility] [place] [facility] [address] [id number] [place] [address]- 0116 Aug, [facility] [place] [facility] [address] [id number] [place] [address]- 6466 Aug, [facility] [place] [facility] [address] [id number] [place] [address]- 0057 Aug, [facility] [place] [facility] [address] [id number] [place] [address]- 0744 Jul, [facility] [place] [facility] [address] [id number] [place] [address]- 6144 Jul, [facility] [place] [facility] [address] [id number] [place] [address]- 0053 Jun, [facility] [place] [facility] [address] [id number] [place] [address]- 5825 Jun, [facility] [place] [facility] [address] [id number] [place] [address]- 0324 May, [facility] [place] [facility] [address] [id number] [place] [address]- 4242 May, [facility] [place] [facility] [address] [id number] [place] [address]- 3423 May, [facility] [place] [facility] [address] [id number] [place] [address]- 7091 Mar, [facility] [place] [facility] [address] [id number] [place] [address]- 9269 Mar, [facility] [place] [facility] [address] [id number] [place] [address]- 7173 Mar, [facility] [place] [facility] [address] [id number] [place] [address]- 7662 Mar, [facility] [place] [facility] [address] [id number] [place] [address]- 3559 Mar, [facility] [place] [facility] [address] [id number] [place] [address]- 5310 Mar, [facility] [place] [facility] [address] [id number] [place] [address]- 2236 Mar, [facility] [place] [facility] [address] [id number] [place] [address]- 9998 January, [facility] [place] [facility] [address] [id number] [place] [address]- 9253 January, [facility] [place] [facility] [address] [id number] [place] [address]- 5580 January, [facility] [place] [facility] [address] [id number] [place] [address]- 8166 January, [facility] [place] [facility] [address] [id number] [place] [address]- 2035 January, [facility] [place] [facility] [address] [id number] [place] [address]- 2467 Nov, [facility] [place] [facility] [address] [id number] [place] [address]- 4271 Nov, [facility] [place] [facility] [address] [id number] [place] [address] Nov, [facility] [place] [facility] [address] [id number] [place] [address] Nov, [facility] [place] [facility] [address] [id number] [place] [address] Nov, [facility] [place] [facility] [address] [id number] [place] [address] Oct, [facility] [place] [facility] [address] [id number] [place] [address] Oct, [facility] [place] [facility] [address] [id number] [place] [address] Aug, [facility] [address] [facility] [id number] [place] [address] Aug, [facility] [address] [facility] [id number] [place] [address] Aug, [facility] [address] [facility] [id number] [place] [address] Aug, [facility] [address] [facility] [id number] [place] [address] Jul, [facility] [address] [facility] [id number] [place] [address] Jul, [facility] [address] [facility] [id number] [place] [address] Mar, IMMUNIZATIONS Vaccine Route Administration Date Status ROCEPHIN 1 GM (IM) IM Intramuscular May 22, 2018 Administered DEPO MEDROL 80 MG/ML IM Intramuscular May 22, 2018 Administered SOCIAL HISTORY Never Assessed REASON FOR VISIT Earache ( RT ear x3 days) ROSY Kincaid PLAN OF CARE Activity Details Follow Up prn Reason: VITAL SIGNS Height 71 in 2018-05-22 Weight 205.8 lbs 2018-05-22 Temperature 98.3 degrees Fahrenheit 2018-05-22 Heart Rate 88 bpm 2018-05-22 Respiratory Rate 18 2018-05-22 BMI 28.70 kg/m2 2018-05-22 Blood pressure systolic 118 mmHg 2018-05-22 Blood pressure diastolic 64 mmHg 2018-05-22 MEDICATIONS Medication Instructions Dosage Frequency Start Date End Date Duration Status Oxycodone HCl 5 mg Orally every 6 hrs as needed 1 tablet Mar, Active Blood Glucose Test Strip Test Strips Breeze 2 test strips Once a day test blood sugar 24h Aug, Active Lisinopril 10 MG Orally Once a day 1 tablet 24h 90 days Active Tamsulosin HCl 0.4 MG TAKE ONE CAPSULE BY MOUTH ONCE DAILY 30 Active Rabeprazole Sodium 20 MG TAKE ONE TABLET BY MOUTH TWICE DAILY 30 Active Victoza 18 MG/3ML INJECT 1.8 MG SUBCUTANEOUSLY ONCE DAILY 30 Active Pen [place] 31G X 6 MM use as directed Dec, Active Famotidine 20 mg TAKE ONE TABLET BY MOUTH TWICE DAILY 30 Active Aleve 220 MG Orally every 12 hrs 1 tablet with food or milk as needed 12h Active MetFORMIN HCl ER 500 MG Orally 2 times a day 2 tablets 12h 30 days Active GlipiZIDE 10 MG Orally 2 times a day 1 tablet 12h 30 days Active Invokana 100 MG TAKE ONE TABLET BY MOUTH ONCE DAILY 30 Active Loratadine 10 MG TAKE ONE TABLET BY MOUTH ONCE DAILY 30 Active Aspirin 81 mg 1 tablet by Oral route 1 time per day Nov, Not-Taking Atorvastatin Calcium 10 MG Orally Once a day 1 tablet 24h 90 days Active Aciphex 20 mg Orally 2 times a day 1 tablet 12h Aug, 90 days Active Flomax 0.4 MG Orally Once a day 1 capsule 24h Jul, 2 Oct, 2018 30 days Active Blood Glucose Monitor glucometer Breeze 2 and microlet lancets Once a day test blood sugar 24h Aug, Active Flonase 50 MCG/ACT Nasally twice a day 1 spray in each nostril 12h Active RESULTS No Results PROCEDURES Procedure Date Ordered Result Body Site ROCEPHIN 1 GM (IM) May 22, 2018 DEPO MEDROL 80 MG/ML May 22, 2018 THER/PROPH/DIAG INJ, SC/IM May 22, 2018 INSTRUCTIONS MEDICATIONS ADMINISTERED No Known Medications MEDICAL (GENERAL) HISTORY Type Description Date Medical History diabetes mellitus Medical History hypertension Medical History kidney stones Medical History acid reflux Medical History chronic pain Medical History Dyslipidemia Hospitalization History Kidney stones, [place]
--- OUTSIDE RECORDS SUMMARY | 2019-01-14 11:04 | XMS REPORT ---
Author Author [facility] Address [address] [place] [address] Care Team Providers Care Experimental Worker Name Role Phone HAIDER VALENTINEY Unavailable PROBLEMS Type Condition ICD9-CM Code ZBL09-VP Code Onset Dates Condition Status SNOMED Code Problem Hyperlipidemia E78.5 Active 35645260 Problem GERD (gastroesophageal reflux disease) K21.9 Active 451163961 Problem Allergic rhinitis J30.9 Active 57364805 Problem Other elevated white blood cell count D72.828 Active 632663605 Problem Onychomycosis B35.1 Active 259072868 Problem Type 2 diabetes mellitus with hyperglycemia E11.65 Active 916929275 Problem Hx of renal calculi Z87.442 Active 987639096 Problem Essential hypertension I10 Active 14157021 Problem Microalbuminuria R80.9 Active 364653360 ALLERGIES No Information ENCOUNTERS Encounter Location Date Diagnosis [place] [address] [address]- [address] Jun, [place] [address] [place] [id number] [place] [address] 12827- 8447 May, Other infective chronic otitis externa of right ear H60.391 [place] [address] [place] [id number] [place] [address] 49470- 4557 May, [place] [address] [place] [id number] [place] [address] 80388- 9320 May, Right ear pain H92.01 and Acute otitis externa of right ear , unspecified type H60.501 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 [place] [address] 48372- 8052 January, [place] [address] 27358- 4366 Nov, [place] [address] 04691- 4671 Nov, Other elevated white blood cell count D72.[address] 75697- 9792 Nov, Type 2 diabetes mellitus with hyperglycemia E11.65 ; Hx of renal calculi Z87.442 ; Callus L84 ; Hyperlipidemia E78.5 and Essential hypertension I10 [place] [address] [place] [id number] [place] [address] 78869- 2749 Oct, Hx of renal calculi Z87.442 [place] [address] [place] [id number] [place] [address] 95871- 5966 Oct, Type 2 diabetes mellitus with hyperglycemia E11.65 ; Hyperlipidemia E78.5 ; GERD (gastroesophageal reflux disease) K21.9 and Essential hypertension I10 [place] [address] 44725- 6428 Jul, [place] [address] 63759- 5768 May, [place] [address] 05529- 9698 Mar, Type 2 diabetes mellitus with hyperglycemia E11.65 ; Hyperlipidemia E78.5 ; GERD (gastroesophageal reflux disease) K21.9 ; Hx of renal calculi Z87.442 ; Essential hypertension I10 ; Encounter for immunization Z23 and Arm numbness R20.0 [place] [address] 30331- 1298 Mar, Type 2 diabetes mellitus with hyperglycemia E11.65 ; Hyperlipidemia E78.5 and Essential hypertension I10 [address] 83433- 7164 January, Type 2 diabetes mellitus with hyperglycemia E11.65 ; GERD ( gastroesophageal reflux disease) K21.9 ; Hyperlipidemia E78.5 ; Hx of renal calculi Z87.442 ; Allergic rhinitis J30.9 and Essential hypertension I10 [address] 99716- 4028 January, Type 2 diabetes mellitus with hyperglycemia E11.[address] 08197- 5322 January, [address] 00275- 1396 Oct, Neuropathic pain M79.2 and Onychomycosis B35.[address] 86798- 9461 Aug, [address] 96595- 1042 Aug, Type 2 diabetes mellitus with hyperglycemia E11.65 ; GERD ( gastroesophageal reflux disease) K21.9 ; Hx of renal calculi Z87.442 ; Essential hypertension I10 ; Chronic cough R05 ; Chest pain, unspecified type R07.9 ; Dry skin dermatitis L85.3 ; Allergic rhinitis J30.9 ; Hyperlipidemia E78.5 and Encounter for immunization Z23 [place] [address] 28192- [address] Aug, [address] 38349- 1948 Jun, [facility] [address] [place] [id number] [place] [address] 17142- 8908 Jun, [facility] [address] [place] [id number] [place] [address] 37364 -8562 Jun, [facility] [address] [place] [id number] [place] [address] 07814- 3679 Jun, [facility] [address] [place] [id number] [place] [address] 25190 -9274 Jun, Rib pain on right side R07.81 [facility] [address] 56947- 7958 May, Chest pain, unspecified type R07.9 [facility] [address] [place] [id number] [place] [address] 74428- 9616 May, [facility] [address] [place] [id number] [place] [address] 67757 -8018 Mar, Chest pain, unspecified type R07.9 [facility] [address] [place] [id number] [place] [address] 46844- 4251 Mar, [facility] [address] [place] [id number] [place] [address] 68544- 9782 Mar, Type 2 diabetes mellitus with hyperglycemia E11.65 ; GERD ( gastroesophageal reflux disease) K21.9 and Hx of renal calculi Z87.442 [facility] [address] [place] [id number] [place] [address] 06313- 8385 Dec, [facility] [address] [place] [id number] [place] [address] 46018- 5289 Nov, [facility] [address] [place] [id number] [place] [address] 27739- 1107 Nov, Chronic cough R05 [facility] [address] [place] [id number] [place] [address] 50887- 3634 Nov, [facility] [address] [place] [id number] [place] [address] 86840- 3140 Nov, [facility] [address] 94084- 7089 Nov, [facility] [address] [place] [id number] [place] [address] 75884- 4284 Nov, [facility] [address] 82596- 6897 Nov, Type 2 diabetes mellitus with hyperglycemia E11.65 ; Elevated TSH R94.6 ; Hyperlipidemia E78.5 ; Microalbuminuria R80.9 ; Tinea pedis B35.3 ; Chronic cough R05 ; GERD (gastroesophageal reflux disease) K21.9 ; Allergic rhinitis J30.9 and Hx of renal calculi Z87.442 [facility] [address] 87328- 4759 Aug, [facility] [address] 21264- 9333 Aug, Hx of renal calculi Z87.442 [facility] [address] 25131- 0417 Aug, [facility] [address] [place] [id number] [place] [address] 87905- 7625 Aug, [facility] [address] 22025- 9590 Aug, [facility] [address] 51182- 6133 Aug, Type 2 diabetes mellitus without complication E11.9 ; Elevated TSH R94.6 and Hyperlipidemia E78.5 [facility] [address] 649053- 8571 Jul, [facility] [address] [place] [id number] [place] [address] 271148- 9531 Jun, [facility] [address] [place] [address]- 7861 Mar, Abnormal thyroid blood test 794.5 [facility] [address] [address]- 1793 Mar, [facility] [address] [address]- 5102 Mar, Abnormal thyroid blood test 794.5 [facility] [id number] [place] [address] 31421- 2348 Mar, Abnormal thyroid blood test 794.5 [facility] [id number] [place] [address] 708641- 1706 Mar, [facility] [id number] [place] [address] 64957- 2884 Mar, Diabetes type 2, uncontrolled 250.02 and Fungal infection of foot 110.4 [facility] [id number] [place] [address] 46465- 4568 Mar, Left flank pain 789.09 [facility] [address] [address]- 6032 January, Left flank pain 789.09 [facility] [address] [address]- 8055 Dec, [facility] [address] [place] [address]- 8026 Dec, [facility] [address] [place] [address]- 6649 Dec, [facility] [address] 7280 Nov, [facility] [address] [place] [address]- 3546 Nov, [facility] [address] [place] [address]- 4676 Nov, [facility] [address] [place] [id number] [address]- 2130 02 Nov, 2014 [facility] [address] [id number] [place] [address]- 6836 30 Oct, 2014 [facility] [place] [facility] [address] [id number] [place] [address]- 6434 30 Oct, 2014 [facility] [address] [id number] [place] [address]- 4519 15 Oct, 2014 [facility] [place] [facility] [address] [id number] [place] [address]- 5943 15 Oct, 2014 [facility] [address] [id number] [place] [address]- 1491 14 Oct, 2014 [facility] [place] [facility] [address] [id number] [place] [address]- 5576 14 Oct, 2014 [facility] [address] [id number] [place] [address]- 0977 15 Aug, 2014 [facility] [address] [id number] [place] [address]- 4650 15 Aug, 2014 [facility] [place] [facility] [address] [id number] [place] [address]- 8915 17 Jul, 2014 [facility] [address] [id number] [place] [address]- 4359 17 Jul, 2014 [facility] [place] [facility] [address] [id number] [place] [address]- 8013 14 Jul, 2014 [facility] [place] [facility] [address] [id number] [place] [address]- 7219 14 Jul, 2014 [facility] [place] [facility] [address] [id number] [place] [address]- 9100 19 Jun, 2014 [facility] [place] [facility] [address] [id number] [place] [address]- 4956 19 Jun, 2014 [facility] [place] [facility] [address] [id number] [place] [address]- 5275 Jun, [facility] [place] [facility] [address] [id number] [place] [address]- 4065 Jun, [facility] [place] [facility] [address] [id number] [place] [address]- 0481 Mar, [facility] [place] [facility] [address] [id number] [place] [address]- 4181 Mar, [facility] [place] [facility] [address] [id number] [place] [address]- 7192 Mar, [facility] [place] [facility] [address] [id number] [place] [address]- 0109 Mar, [facility] [place] [facility] [address] [id number] [place] [address]- 3739 Mar, [facility] [place] [facility] [address] [id number] [place] [address]- 5575 Mar, [facility] [place] [facility] [address] [id number] [place] [address]- 1895 Mar, [facility] [place] [facility] [address] [id number] [place] [address]- 9005 Mar, [facility] [place] [facility] [address] [id number] [place] [address]- 4843 Mar, [facility] [place] [facility] [address] [id number] [place] [address]- 5835 Mar, [facility] [place] [facility] [address] [id number] [place] [address]- 4494 Mar, [facility] [place] [facility] [address] [id number] [place] [address]- 8141 Mar, [facility] [place] [facility] [address] [id number] [place] [address]- 2677 Mar, [facility] [place] [facility] [address] [id number] [place] [address]- 3716 Mar, [facility] [place] [facility] [address] [id number] [place] [address]- 7918 Mar, [facility] [place] [facility] [address] [id number] [place] [address]- 1866 Mar, [facility] [place] [facility] [address] [id number] [place] [address]- 7583 Mar, [facility] [place] [facility] [address] [id number] [place] [address]- 6250 Mar, [facility] [place] [facility] [address] [id number] [place] [address]- 3462 January, [facility] [place] [facility] [address] [id number] [place] [address]- 0505 January, [facility] [place] [facility] [address] [id number] [place] [address]- 5227 January, [facility] [place] [facility] [address] [id number] [place] [address]- 0223 January, [facility] [place] [facility] [address] [id number] [place] [address]- 0272 January, [facility] [place] [facility] [address] [id number] [place] [address]- 8803 January, [facility] [place] [facility] [address] [id number] [place] [address]- 9946 January, [facility] [place] [facility] [address] [id number] [place] [address]- 4111 January, [facility] [place] [facility] [address] [id number] [place] [address]- 6937 January, [facility] [place] [facility] [address] [id number] [place] [address]- 6883 January, [facility] [place] [facility] [address] [id number] [place] [address]- 0445 Dec, [facility] [place] [facility] [address] [id number] [place] [address]- 1914 Dec, [facility] [place] [facility] [address] [id number] [place] [address]- 1134 Dec, [facility] [place] [facility] [address] [id number] [place] [address]- 7177 Dec, [facility] [place] [facility] [address] [id number] [place] [address]- 4536 Dec, [facility] [place] [facility] [address] [id number] [place] [address]- 3099 Dec, [facility] [place] [facility] [address] [id number] [place] [address]- 5991 Dec, [facility] [place] [facility] [address] [id number] [place] [address]- 8540 Dec, [facility] [place] [facility] [address] [id number] [place] [address]- 5093 Dec, [facility] [place] [facility] [address] [id number] [place] [address]- 3514 Dec, [facility] [place] [facility] [address] [id number] [place] [address]- 9604 Dec, [facility] [place] [facility] [address] [id number] [place] [address]- 4190 Dec, [facility] [place] [facility] [address] [id number] [place] [address]- 9900 Dec, [facility] [place] [facility] [address] [id number] [place] [address]- 1755 Dec, [facility] [place] [facility] [address] [id number] [place] [address]- 1190 Nov, [facility] [place] [facility] [address] [id number] [place] [address]- 5696 Nov, [facility] [place] [facility] [address] [id number] [place] [address]- 4591 Nov, [facility] [place] [facility] [address] [id number] [place] [address]- 9767 Nov, [facility] [place] [facility] [address] [id number] [place] [address]- 1464 Aug, [facility] [place] [facility] [address] [id number] [place] [address]- 6593 Aug, [facility] [place] [facility] [address] [id number] [place] [address]- 3883 Aug, [facility] [place] [facility] [address] [id number] [place] [address]- 8227 Aug, [facility] [place] [facility] [address] [id number] [place] [address]- 9489 Aug, [facility] [place] [facility] [address] [id number] [place] [address]- 5909 Aug, [facility] [place] [facility] [address] [id number] [place] [address]- 0434 Jul, [facility] [place] [facility] [address] [id number] [place] [address]- 2147 Jul, [facility] [place] [facility] [address] [id number] [place] [address]- 4811 May, [facility] [place] [facility] [address] [id number] [place] [address]- 2189 May, [facility] [place] [facility] [address] [id number], [place] [address]- 7794 Mar, [facility] [place] [facility] [address] [id number], [place] [address]- 4309 Mar, [facility] [place] [facility] [address] [id number] [place] [address]- 7245 Mar, [facility] [place] [facility] [address] [id number], [place] [address]- 3025 Mar, [facility] [place] [facility] [address] [id number] [place] [address]- 5160 Mar, [facility] [place] [facility] [address] [id number] [place] [address]- 1019 11 Mar, 2013 [facility] [address] [id number] [place] [address]- 2777 11 Mar, 2013 [facility] [place] [facility] [address] [id number] [place] [address]- 7317 10 Mar, 2013 [facility] [address] [id number] [place] [address]- 9529 17 Dec, 2012 [facility] [place] [facility] [address] [id number] [place] [address]- 1475 16 Dec, 2012 [facility] [address] [id number] [place] [address]- 2898 15 Dec, 2012 [facility] [place] [facility] [address] [id number] [place] [address]- 5973 Dec, [facility] [address] [id number] [place] [address]- 5027 Dec, [facility] [place] [facility] [address] [id number] [place] [address]- 1370 Nov, [facility] [place] [facility] [address] [id number] [place] [address]- 4721 Nov, [facility] [address] [id number] [place] [address]- 4710 Oct, [facility] [place] [facility] [address] [id number] [place] [address]- 8377 30 Oct, 2012 [facility] [place] [facility] [address] [id number] [place] [address]- 2017 Oct, [facility] [place] [facility] [address] [id number] [place] [address]- 0773 Oct, [facility] [place] [facility] [address] [id number] [place] [address]- 7949 Aug, [facility] [place] [facility] [address] [id number] [place] [address]- 1325 Aug, [facility] [place] [facility] [address] [id number] [place] [address]- 4082 Aug, [facility] [place] [facility] [address] [id number] [place] [address]- 1653 Aug, [facility] [place] [facility] [address] [id number] [place] [address]- 7752 Aug, [facility] [place] [facility] [id number] [place] [address], [place] [address]- 8970 Aug, [facility] [place] [facility] [address] [id number] [place] [address]- 2728 Jul, [facility] [place] [facility] [address] [id number] [place] [address]- 3762 Jul, [facility] [place] [facility] [address] [id number] [place] [address]- 3981 Jun, [facility] [place] [facility] [address] [id number] [place] [address]- 7652 Jun, [facility] [place] [facility] [address] [id number] [place] [address]- 0179 May, [facility] [place] [facility] [address] [id number] [place] [address] May, [facility] [place] [facility] [address] [id number] [place] [address] May, [facility] [place] [facility] [address] [id number] [place] [address] Mar, [facility] [place] [facility] [address] [id number] [place] [address] Mar, [facility] [place] [facility] [address] [id number] [place] [address] Mar, [facility] [place] [facility] [address] [id number] [place] [address] Mar, [facility] [place] [facility] [address] [id number] [place] [address] Mar, [facility] [address] [id number] [place] [address] Mar, [facility] [place] [facility] [address] [id number] [place] [address] Mar, [facility] [address] [id number] [place] [address] January, [facility] [address] [id number] [place] [address] January, [facility] [address] [id number] [place] [address] January, [facility] [address] [id number] [place] [address] January, [facility] [address] [id number] [place] [address] January, [facility] [place] [facility] [address] [id number] [place] [address] Nov, [facility] [address] [id number] [place] [address] Nov, [facility] [place] [facility] [address] [id number] [place] [address] Nov, [facility] [address] [id number] [place] [address] 08 Nov, 2011 [facility] [place] [facility] [address] [id number] [place] [address] Nov, [facility] [place] [facility] [address] [id number] [place] [address] Oct, [facility] [place] [facility] [address] [id number] [place] [address] Oct, [facility] [place] [facility] [address] [id number] [place] [address] Aug, [facility] [place] [facility] [address] [facility] [id number] [address] [address] Aug, [facility] [address] [id number], [place] [address] Aug, [facility] [id number], [place] [address] Aug, [facility] [address] [id number], [place] [address] Jul, [facility] [address] [id number] [address] Jul, [facility] [address] [facility] [id number] [address] Mar, IMMUNIZATIONS No Known Immunizations SOCIAL HISTORY [...]
--- OUTSIDE RECORDS SUMMARY | 2019-01-14 11:04 | XMS REPORT ---
Author Author MEME SHAKEEL [facility] Address [address] [place] [address] Care Team Providers Care Workers Compensation Paralegal Name Role Phone MEMEAMERICO DOUGHERTYHANY Unavailable PROBLEMS Type Condition ICD9-CM Code KCR22-AI Code Onset Dates Condition Status SNOMED Code Problem Hyperlipidemia E78.5 Active 49083867 Problem GERD (gastroesophageal reflux disease) K21.9 Active 802221949 Problem Allergic rhinitis J30.9 Active 35284381 Problem Other elevated white blood cell count D72.828 Active 683678927 Problem Onychomycosis B35.1 Active 254962673 Problem Type 2 diabetes mellitus with hyperglycemia E11.65 Active 766771616 Problem Hx of renal calculi Z87.442 Active 432976078 Problem Essential hypertension I10 Active 74341595 Problem Microalbuminuria R80.9 Active 146040349 ALLERGIES Substance Reaction Event Type Date Status Metformin Diarrhea Drug Allergy Mar, Active ENCOUNTERS Encounter Location Date Diagnosis [facility] [id number] [place] [address] 88973- 6111 Jun, [facility] [facility] [address] 38599- 3024 May, Other infective chronic otitis externa of right ear H60.391 [facility] [id number] [place] [address] 34070- 1430 May, [facility] [address] 43473- 9365 May, Right ear pain H92.01 and Acute otitis externa of right ear , unspecified type H60.501 [facility] [id number] [place] [address] 94108- 1397 Mar, [facility] [address] 57211- 1629 Mar, Type 2 diabetes mellitus with hyperglycemia E11.65 ; GERD ( gastroesophageal reflux disease) K21.9 ; Right hip pain M25.551 ; Hyperlipidemia E78.5 and Essential hypertension I10 [facility] [id number] [place] [address] 88271- 5054 Mar, [facility] [address] 57745- 7816 January, 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 [facility] [facility] [address] 44518- 4149 January, [facility] [address] 37650- 3861 Nov, [facility] [address] 07331- 0449 Nov, Other elevated white blood cell count D72.828 [facility] [id number] [place] [address] 71621- 0460 Nov, Type 2 diabetes mellitus with hyperglycemia E11.65 ; Hx of renal calculi Z87.442 ; Callus L84 ; Hyperlipidemia E78.5 and Essential hypertension I10 [facility] [id number] [place] [address] 93821- 7558 Oct, Hx of renal calculi Z87.442 [facility] [id number] [place] [address] 41165- 0122 Oct, Type 2 diabetes mellitus with hyperglycemia E11.65 ; Hyperlipidemia E78.5 ; GERD (gastroesophageal reflux disease) K21.9 and Essential hypertension I10 [facility] [id number] [place] [address] 48016- 3010 Jul, [facility] [id number] [place] [address] 50876- 2778 May, [facility] [address] 87655- 9868 Mar, Type 2 diabetes mellitus with hyperglycemia E11.65 ; Hyperlipidemia E78.5 ; GERD (gastroesophageal reflux disease) K21.9 ; Hx of renal calculi Z87.442 ; Essential hypertension I10 ; Encounter for immunization Z23 and Arm numbness R20.0 [facility] [id number] [place] [address] 22224- 6878 Mar, Type 2 diabetes mellitus with hyperglycemia E11.65 ; Hyperlipidemia E78.5 and Essential hypertension I10 [facility] [address] 41648- 4411 January, Type 2 diabetes mellitus with hyperglycemia E11.65 ; GERD ( gastroesophageal reflux disease) K21.9 ; Hyperlipidemia E78.5 ; Hx of renal calculi Z87.442 ; Allergic rhinitis J30.9 and Essential hypertension I10 [facility] [id number] [place] [address] 69899- 5349 January, Type 2 diabetes mellitus with hyperglycemia E11.65 [facility] [address] 66247- 7958 January, [facility] [address] 22269- 9989 Oct, Neuropathic pain M79.2 and Onychomycosis B35.1 [facility] [id number] [place] [address] 99795- 6164 Aug, [facility] [address] 24653- 1362 Aug, Type 2 diabetes mellitus with hyperglycemia E11.65 ; GERD ( gastroesophageal reflux disease) K21.9 ; Hx of renal calculi Z87.442 ; Essential hypertension I10 ; Chronic cough R05 ; Chest pain, unspecified type R07.9 ; Dry skin dermatitis L85.3 ; Allergic rhinitis J30.9 ; Hyperlipidemia E78.5 and Encounter for immunization Z23 [facility] [facility] [id number] [place] [address] 30690- 1987 Aug, [facility] [facility] [address] [address] 1623 Jun, [facility] [id number] [place] [address] 17844- 0883 Jun, [facility] [id number] [place] [address] 38561 -1167 Jun, [facility] [id number] [place] [address] 10126- 0658 Jun, [facility] [id number] [place] [address] 13207 -2954 Jun, Rib pain on right side R07.81 [facility] [id number] [place] [address] 39003- 5897 May, Chest pain, unspecified type R07.9 [facility] [id number] [place] [address] 68175- 1188 May, [facility] [id number] [place] [address] 74204 -3393 Mar, Chest pain, unspecified type R07.9 [facility] [id number] [place] [address] 65520- 2537 Mar, [facility] [id number] [place] [address] 72288- 6428 Mar, Type 2 diabetes mellitus with hyperglycemia E11.65 ; GERD ( gastroesophageal reflux disease) K21.9 and Hx of renal calculi Z87.442 [facility] [id number] [place] [address] 39405- 4965 Dec, [facility] [id number] [place] [address] 74649- 8507 Nov, [facility] [id number] [place] [address] 54681- 0663 Nov, Chronic cough R05 [facility] [id number] [place] [address] 64276- 9838 Nov, [facility] [id number] [place] [address] 579774- 2225 Nov, [facility] [id number] [place] [address] 099743- 5754 Nov, [facility] [id number] [place] [address] 45382- 8094 Nov, [facility] [address] 217933- 9741 Nov, Type 2 diabetes mellitus with hyperglycemia E11.65 ; Elevated TSH R94.6 ; Hyperlipidemia E78.5 ; Microalbuminuria R80.9 ; Tinea pedis B35.3 ; Chronic cough R05 ; GERD (gastroesophageal reflux disease) K21.9 ; Allergic rhinitis J30.9 and Hx of renal calculi Z87.442 [facility] [address] 43888- 5838 Aug, [facility] [id number] [place] [address] 93307- 5754 Aug, Hx of renal calculi Z87.442 [facility] [id number] [place] [address] 951057- 3000 Aug, [facility] [id number] [place] [address] 88675- 3625 Aug, [facility] [id number] [place] [address] 11965- 3398 Aug, [facility] [id number] [place] [address] 60166- 9712 Aug, Type 2 diabetes mellitus without complication E11.9 ; Elevated TSH R94.6 and Hyperlipidemia E78.5 [facility] [id number] [place] [address] 056396- 0957 Jul, [facility] [id number] [place] [address] 252745- 1220 Jun, [place] [address] [address]- 8766 Mar, Abnormal thyroid blood test 794.5 [facility] [address] [address]- 7783 Mar, [facility] [address] [address]- 0201 Mar, Abnormal thyroid blood test 794.5 [facility] [address] [address]- 8079 Mar, Abnormal thyroid blood test 794.5 [facility] [id number] [place] [address] 65788- 7366 Mar, [facility] [address] [address]- 1744 Mar, Diabetes type 2, uncontrolled 250.02 and Fungal infection of foot 110.4 [facility] [address] [address]- 4227 Mar, Left flank pain 789.09 [facility] [id number] [place] [address] 38453- 2125 January, Left flank pain 789.09 [facility] [address] [address]- 5449 Dec, [facility] [address] [address]- 4236 Dec, [facility] [address] [address]- 1281 Dec, [facility] [address] [address]- 1242 Nov, [facility] [address] [address]- 1621 Nov, [facility] [address] 5221 Nov, [facility] [place] [facility] [address] [id number] [place] [address]- 9716 Nov, [facility] [place] [facility] [address] [id number] [place] [address]- 9188 Oct, [facility] [place] [facility] [address] [id number] [place] [address]- 7596 30 Oct, 2014 [facility] [place] [facility] [address] [id number] [place] [address]- 3766 Oct, [facility] [place] [facility] [address] [id number] [place] [address]- 8307 15 Oct, 2014 [facility] [place] [facility] [address] [id number] [place] [address]- 2674 Oct, [facility] [place] [facility] [address] [id number] [place] [address]- 9141 Oct, [facility] [place] [facility] [address] [id number] [place] [address]- 6117 15 Aug, 2014 [facility] [place] [facility] [address] [id number] [place] [address]- 9514 15 Aug, 2014 [facility] [place] [facility] [address] [id number] [address]- 0544 17 Jul, 2014 [facility] [place] [facility] [address] [id number] [address]- 7110 17 Jul, 2014 [facility] [place] [facility] [address] [id number] [address]- 4860 14 Jul, 2014 [facility] [place] [facility] [address] [id number] [place] [address]- 6391 14 Jul, 2014 [facility] [place] [facility] [address] [id number] [address]- 7738 19 Jun, 2014 [facility] [place] [facility] [address] [id number] [address]- 0370 19 Jun, 2014 [facility] [place] [facility] [address] [id number] [place] [address]- 5491 Jun, [facility] [place] [facility] [address] [id number] [place] [address]- 4836 Jun, [facility] [place] [facility] [address] [id number] [place] [address]- 0593 Mar, [facility] [place] [facility] [address] [id number] [place] [address]- 1060 Mar, [facility] [place] [facility] [address] [id number] [place] [address]- 0626 Mar, [facility] [place] [facility] [address] [id number] [place] [address]- 4398 Mar, [facility] [place] [facility] [address] [id number] [place] [address]- 0176 Mar, [facility] [place] [facility] [address] [id number] [place] [address]- 7214 Mar, [facility] [place] [facility] [address] [id number] [place] [address]- 9181 Mar, [facility] [place] [facility] [address] [id number] [place] [address]- 0277 Mar, [facility] [place] [facility] [address] [id number] [place] [address]- 1052 Mar, [facility] [place] [facility] [address] [id number] [place] [address]- 6930 Mar, [facility] [place] [facility] [address] [id number] [place] [address]- 3032 Mar, [facility] [place] [facility] [address] [id number] [place] [address]- 5615 Mar, [facility] [place] [facility] [address] [id number] [place] [address]- 2586 Mar, [facility] [place] [facility] [address] [id number] [place] [address]- 7449 Mar, [facility] [place] [facility] [address] [id number] [place] [address]- 4879 Mar, [facility] [place] [facility] [address] [id number] [place] [address]- 9153 Mar, [facility] [place] [facility] [address] [id number] [place] [address]- 1243 Mar, [facility] [place] [facility] [address] [id number] [place] [address]- 5995 Mar, [facility] [place] [facility] [address] [id number] [place] [address]- 1533 January, [facility] [place] [facility] [address] [id number] [place] [address]- 6579 January, [facility] [place] [facility] [address] [id number] [place] [address]- 6039 January, [facility] [place] [facility] [address] [id number] [place] [address]- 7828 January, [facility] [place] [facility] [address] [id number] [place] [address]- 1321 January, [facility] [place] [facility] [address] [id number] [place] [address]- 3780 January, [facility] [place] [facility] [address] [id number] [place] [address]- 9304 January, [facility] [place] [facility] [address] [id number] [place] [address]- 9730 January, [facility] [place] [facility] [address] [id number] [place] 0853 January, [facility] [place] [facility] [address] [id number] [place] 7586 January, [facility] [place] [facility] [address] [id number] [place] [address]- 5686 Dec, [facility] [place] [facility] [address] [id number] [place] [address]- 3278 Dec, [facility] [place] [facility] [address] [id number] [place] [address]- 1574 Dec, [facility] [place] [facility] [address] [id number] [place] [address]- 6288 Dec, [facility] [place] [facility] [address] [id number] [place] [address]- 2531 Dec, [facility] [place] [facility] [address] [id number] [place] [address]- 7059 Dec, [facility] [place] [facility] [address] [id number] [place] [address]- 6030 Dec, [facility] [place] [facility] [address] [id number] [place] [address]- 8224 Dec, [facility] [place] [facility] [address] [id number] [place] [address]- 7943 Dec, [facility] [place] [facility] [address] [id number] [place] [address]- 4480 Dec, [facility] [place] [facility] [address] [id number] [place] [address]- 7666 Dec, [facility] [place] [facility] [address] [id number] [place] [address]- 5817 Dec, [facility] [place] [facility] [address] [id number] [place] [address]- 3887 Dec, [facility] [place] [facility] [address] [id number] [place] [address]- 7598 Dec, [facility] [place] [facility] [address] [id number] [place] [address]- 0843 Nov, [facility] [place] [facility] [address] [id number] [place] [address]- 9507 Nov, [facility] [place] [facility] [address] [id number] [place] [address]- 7573 Nov, [facility] [place] [facility] [address] [id number] [place] [address]- 8226 Nov, [facility] [address] [id number] [place] [address]- 1930 Aug, [facility] [place] [facility] [address] [id number] [place] [address]- 8853 Aug, [facility] [place] [facility] [address] [id number] [place] [address]- 8577 Aug, [facility] [place] [facility] [address] [id number] [place] [address]- 2052 Aug, [facility] [place] [facility] [address] [id number] [place] [address]- 7696 Aug, [facility] [place] [facility] [address] [id number] [place] [address]- 2183 Aug, [facility] [place] [facility] [address] [id number] [place] [address]- 3182 Jul, [facility] [place] [facility] [address] [id number] [place] [address]- 8553 Jul, [facility] [place] [facility] [address] [id number] [place] [address]- 4017 May, [facility] [place] [facility] [address] [id number] [place] [address]- 4423 May, [facility] [place] [facility] [address] [id number] [place] [address]- 1607 Mar, [facility] [place] [facility] [address] [id number] [place] [address]- 2548 Mar, [facility] [place] [facility] [address] [id number] [place] [address]- 8663 Mar, [facility] [place] [facility] [address] [id number] [place] [address]- 3426 Mar, [facility] [place] [facility] [address] [id number] [place] [address]- 6340 Mar, [facility] [place] [facility] [address] [id number] [place] [address]- 5882 Mar, [facility] [address] [id number] [place] [address]- 3655 Mar, [facility] [address] [id number] [place] [address]- 9150 Mar, [facility] [address] [id number] [place] [address]- 7657 17 Dec, 2012 [facility] [address] [id number] [place] [address]- 9043 16 Dec, 2012 [facility] [address] [id number] [place] [address]- 0182 Dec, [facility] [address] [id number] [place] [address]- 8069 Dec, [facility] [address] [id number] [place] [address]- 0169 Dec, [facility] [address] [id number] [place] [address]- 4234 Nov, [facility] [address] [id number] [place] [address]- 4144 Nov, [facility] [address] [id number] [place] [address]- 9316 Oct, [facility] [address] [id number] [place] [address]- 8743 Oct, [facility] [address] [id number] [place] [address]- 0443 Oct, [facility] [place] [facility] [address] [id number] [place] [address]- 1808 Oct, [facility] [address] [id number] [place] [address]- 7695 Aug, [facility] [address] [id number] [place] [address]- 3059 Aug, [facility] [place] [facility] [address] [id number] [place] [address]- 9749 Aug, [facility] [place] [facility] [address] [id number] [place] [address]- 9746 Aug, [facility] [place] [facility] [address] [id number] [place] [address]- 7536 Aug, [facility] [place] [facility] [address] [id number] [place] [address]- 4981 Aug, [facility] [place] [facility] [address] [id number] [place] [address]- 8606 Jul, [facility] [place] [facility] [address] [id number] [place] [address]- 5008 Jul, [facility] [place] [facility] [address] [id number] [place] [address]- 4312 Jun, [facility] [place] [facility] [address] [id number] [place] [address]- 9846 Jun, [facility] [place] [facility] [address] [id number] [place] [address]- 1469 May, [facility] [place] [facility] [address] [id number] [place] [address]- 1660 May, [facility] [place] [facility] [address] [id number] [place] [address]- 8490 May, [facility] [place] [facility] [address] [id number] [place] [address]- 9623 Mar, [facility] [place] [facility] [address] [id number] [place] [address]- 6183 Mar, [facility] [place] [facility] [address] [id number] [place] [address]- 6418 Mar, [facility] [place] [facility] [address] [id number] [place] [address]- 3845 Mar, [facility] [place] [facility] [address] [id number] [place] [address]- 1932 Mar, [facility] [address] [id number] [place] [address] Mar, [facility] [place] [facility] [address] [id number] [place] [address] Mar, [facility] [address] [id number] [place] [address] January, [facility] [address] [id number] [place] [address] January, [facility] [address] [id number] [place] [address] January, [facility] [address] [id number] [place] [address] January, [facility] [address] [id number] [place] [address] January, [facility] [address] [id number] [place] [address] Nov, [facility] [address] [id number] [place] [address] Nov, [facility] [address] [id number] [place] [address] Nov, [facility] [address] [id number] [place] [address] Nov, [facility] [address] [id number] [place] [address] Nov, [facility] [place] [facility] [address] [id number] [place] [address] Oct, [facility] [place] [facility] [address] [id number] [place] [address] Oct, [facility] [place] [facility] [address] [id number] [place] [address] Aug, [facility] [address] [facility] [id number] [place] [address] Aug, [facility] [address] [facility] [id number] [place] [address] Aug, [facility] [address] [facility] [id number] [place] [address] Aug, [facility] [address] [facility] [id number] [place] [address] Jul, [facility] [address] [facility] [id number] [place] [address] Jul, [facility] [address] [facility] [id number] [place] [address] Mar, IMMUNIZATIONS No Known Immunizations SOCIAL HISTORY Never Assessed REASON FOR VISIT Diabetes fu -- andrei hernandez PLAN OF CARE Activity Details Follow Up 4 Weeks Reason:Blood sugar VITAL SIGNS Height 71 in 2018-04-05 Weight 209.0 lbs 2018-04-05 Temperature 98.0 degrees Fahrenheit 2018-04-05 Heart Rate 80 bpm 2018-04-05 Respiratory Rate 18 2018-04-05 BMI 29.15 kg/m2 2018-04-05 Blood pressure systolic 130 mmHg 2018-04-05 Blood pressure diastolic 76 mmHg 2018-04-05 MEDICATIONS Medication Instructions Dosage Frequency Start Date End Date Duration Status Oxycodone HCl 5 mg Orally every 6 hrs as needed 1 tablet Mar, Active Victoza 18 MG/3ML INJECT 1.8 MG SUBCUTANEOUSLY ONCE DAILY 30 Active Blood Glucose Test Strip Test Strips Breeze 2 test strips Once a day test blood sugar 24h Aug, Active Aspirin 81 mg 1 tablet by Oral route 1 time per day Nov, Active Aciphex 20 mg Orally 2 times a day 1 tablet 12h Aug, 90 days Active Pen [place] 31G X 6 MM use as directed Dec, Active MetFORMIN HCl ER 500 MG Orally 2 times a day 2 tablets 12h 30 days Active Lisinopril 10 MG Orally Once a day 1 tablet 24h 90 days Active Flonase 50 MCG/ACT Nasally twice a day 1 spray in each nostril 12h Not-Taking Atorvastatin Calcium 10 MG Orally Once a day 1 tablet 24h 90 days Active Loratadine 10 MG TAKE ONE TABLET BY MOUTH ONCE DAILY 30 Active Blood Glucose Monitor glucometer Breeze 2 and microlet lancets Once a day test blood sugar 24h Aug, Active GlipiZIDE 10 MG Orally 2 times a day 1 tablet 12h 30 days Active Rabeprazole Sodium 20 MG TAKE ONE TABLET BY MOUTH TWICE DAILY 30 Active Famotidine 20 mg TAKE ONE TABLET BY MOUTH TWICE DAILY 30 Active Flomax 0.4 MG Orally Once a day 1 capsule 24h 14 Jul, 2014 2 Oct, 2018 30 days Active Tamsulosin HCl 0.4 MG TAKE ONE CAPSULE BY MOUTH ONCE DAILY 30 Active Invokana 100 MG TAKE ONE TABLET BY MOUTH ONCE DAILY 30 Active Aleve 220 MG Orally every 12 hrs 1 tablet with food or milk as needed 12h Not-Taking RESULTS Name Result Date Reference Range A1C (IN HOUSE) 2018-04-05 A1C IN HOUSE 8.9 4.3 - 5.6 % Previous A1c 6.7 Lot [id number] Exp date 11/2019 Xray : Hip, Right 2 views (IN HOUSE) 2018-04-05 PROCEDURES Procedure Date Ordered Result Body Site GLYCATED HEMOGLOBIN TEST April 05, 2018 X-RAY EXAM HIP UNI 2-3 VIEWS April 05, 2018 INSTRUCTIONS MEDICATIONS ADMINISTERED No Known Medications MEDICAL (GENERAL) HISTORY Type Description Date Medical History diabetes mellitus Medical History hypertension Medical History kidney stones Medical History acid reflux Medical History chronic pain Medical History Dyslipidemia Hospitalization History Kidney stones, [place]
--- OUTSIDE RECORDS SUMMARY | 2019-01-14 11:05 | XMS REPORT ---
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 Role Phone ELIS MURILLO Unavailable PROBLEMS Type Condition ICD9-CM Code EXO15-NX Code Onset Dates Condition Status SNOMED Code Problem Hyperlipidemia E78.5 Active 34515845 Problem GERD (gastroesophageal reflux disease) K21.9 Active 190558808 Problem Allergic rhinitis J30.9 Active 75981483 Problem Other elevated white blood cell count D72.828 Active 757340131 Problem Onychomycosis B35.1 Active 027310099 Problem Type 2 diabetes mellitus with hyperglycemia E11.65 Active 992740649 Problem Hx of renal calculi Z87.442 Active 862524723 Problem Essential hypertension I10 Active 87254399 Problem Microalbuminuria R80.9 Active 046382989 ALLERGIES Substance Reaction Event Type Date Status Metformin Diarrhea Drug Allergy January, Active ENCOUNTERS Encounter Location Date Diagnosis [facility] [id number] [place] [address] 05196- 2406 Jun, [facility] [id number] [place] [address] 17142- 4645 Mar, [facility] [id number] [place] [address] 99710- 8875 Mar, Type 2 diabetes mellitus with hyperglycemia E11.65 ; GERD ( gastroesophageal reflux disease) K21.9 ; Right hip pain M25.551 ; Hyperlipidemia E78.5 and Essential hypertension I10 [facility] [id number] [place] [address] 46306- 2803 Mar, [facility] [id number] [place] [address] 91888- 7540 January, 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 7[address]44- 8423 January, [place] [id number]- [address]476 Nov, [address] 09269- 5560 Nov, Other elevated white blood cell count D72.[address] 37019- 3377 Nov, Type 2 diabetes mellitus with hyperglycemia E11.65 ; Hx of renal calculi Z87.442 ; Callus L84 ; Hyperlipidemia E78.5 and Essential hypertension I10 [address] 86176- 3787 Oct, Hx of renal calculi Z87.[address] 89788- 9337 Oct, Type 2 diabetes mellitus with hyperglycemia E11.65 ; Hyperlipidemia E78.5 ; GERD (gastroesophageal reflux disease) K21.9 and Essential hypertension I10 [address] 35324- 7780 Jul, [address] 58291- 3802 May, [address] 03349- 3195 Mar, Type 2 diabetes mellitus with hyperglycemia E11.65 ; Hyperlipidemia E78.5 ; GERD (gastroesophageal reflux disease) K21.9 ; Hx of renal calculi Z87.442 ; Essential hypertension I10 ; Encounter for immunization Z23 and Arm numbness R20.[address] 56326- 7496 Mar, Type 2 diabetes mellitus with hyperglycemia E11.65 ; Hyperlipidemia E78.5 and Essential hypertension I10 [address] 17124- 0446 January, Type 2 diabetes mellitus with hyperglycemia E11.65 ; GERD ( gastroesophageal reflux disease) K21.9 ; Hyperlipidemia E78.5 ; Hx of renal calculi Z87.442 ; Allergic rhinitis J30.9 and Essential hypertension I10 [place] [id number] [place] [address] 20591- 2056 January, Type 2 diabetes mellitus with hyperglycemia E11.65 [place] [address] 13216- 0236 January, [place] [address] 81616- 6790 Oct, Neuropathic pain M79.2 and Onychomycosis B35.1 [place] [id number] [place] [address] 85319- 3237 Aug, [place] [address] 49382- 7072 Aug, Type 2 diabetes mellitus with hyperglycemia E11.65 ; GERD ( gastroesophageal reflux disease) K21.9 ; Hx of renal calculi Z87.442 ; Essential hypertension I10 ; Chronic cough R05 ; Chest pain, unspecified type R07.9 ; Dry skin dermatitis L85.3 ; Allergic rhinitis J30.9 ; Hyperlipidemia E78.5 and Encounter for immunization Z23 [place] [id number] [place] [address] 80627- 1137 Aug, [place] [id number] [place] [address] 16888- 8597 Jun, [place] [id number] [place] [address] 28514- 0882 Jun, [facility] [id number] [place] [address] 06969 -1424 Jun, [facility] [id number] [place] [address] 46048- 4705 Jun, [facility] [address] [place] [address] Jun, Rib pain on right side R07.81 [facility] [id number] [place] [address] 01979- 3794 May, Chest pain, unspecified type R07.9 [facility] [id number] [place] [address] 25712- 3895 May, [facility] [id number] [place] [address] 81005 -9595 Mar, Chest pain, unspecified type R07.9 [facility] [id number] [place] [address] 01808- 6437 Mar, [facility] [id number] [place] [address] 75799- 5168 Mar, Type 2 diabetes mellitus with hyperglycemia E11.65 ; GERD ( gastroesophageal reflux disease) K21.9 and Hx of renal calculi Z87.442 [facility] [id number] [place] [address] 60836- 2702 Dec, [facility] [id number] [place] [address] 73183- 8226 Nov, [facility] [id number] [place] [address] 67755- 2147 Nov, Chronic cough R05 [facility] [id number] [place] [address] 24777- 4113 Nov, [facility] [address] [place] [address] 45930- 5534 Nov, [facility] [id number] [place] [address] 15729- 3916 Nov, [facility] [id number] [place] [address] 28986- 1235 Nov, [facility] [id number] [place] [address] 87289- 1693 Nov, Type 2 diabetes mellitus with hyperglycemia E11.65 ; Elevated TSH R94.6 ; Hyperlipidemia E78.5 ; Microalbuminuria R80.9 ; Tinea pedis B35.3 ; Chronic cough R05 ; GERD (gastroesophageal reflux disease) K21.9 ; Allergic rhinitis J30.9 and Hx of renal calculi Z87.442 [facility] [id number] [place] [address] 22136- 1075 Aug, [facility] [address] 18978- 2467 Aug, Hx of renal calculi Z87.442 [place] [address] 836470- 6344 Aug, [place] [id number] [place] [address] 60081- 5188 Aug, [place] [address] 66745- 8804 Aug, [place] [id number] [place] [address] 12506- 1835 Aug, Type 2 diabetes mellitus without complication E11.9 ; Elevated TSH R94.6 and Hyperlipidemia E78.5 [place] [id number] [place] [address] 80533- 1918 Jul, [place] [id number] [place] [address] 59333- 1068 Jun, [place] [id number] [place] [address] 93881- 2654 Mar, Abnormal thyroid blood test 794.5 [place] [id number] [place] [address] 92282- 5348 Mar, [place] [id number] [place] [address] 85550- 8069 Mar, Abnormal thyroid blood test 794.5 [place] [id number] [place] [address] 37061- 7336 Mar, Abnormal thyroid blood test 794.5 [facility] [id number] [place] [address] 27625- 5423 Mar, [facility] [id number] [place] [address] 52691- 2822 Mar, Diabetes type 2, uncontrolled 250.02 and Fungal infection of foot 110.4 [facility] [id number] [place] [address] 12296- 2499 Mar, Left flank pain 789.09 [facility] [id number] [place] [address] 46767- 6411 January, Left flank pain 789.09 [facility] [id number] [place] [address] 60318- 7941 Dec, [facility] [id number] [place] [address] 19759- 6919 Dec, [facility] [id number] [place] [address] 46947- 7615 Dec, [facility] [id number] [place] [address] 56459- 5922 Nov, [facility] [id number] [place] [address] 46678- 1698 Nov, [facility] [address] [place] [address] 15929- 5406 Nov, [facility] [address] [address]- 6466 Nov, [facility] [id number] [place] [address] 17217- 2350 Oct, [facility] [id number] [place] [address] 33906- 6526 Oct, [facility] [address] [place] [address] 42549- 0236 Oct, [facility] [place] [facility] [address] [id number] [place] [address]- 6479 15 Oct, 2014 [facility] [place] [facility] [address] [id number] [place] [address]- 6576 14 Oct, 2014 [facility] [place] [facility] [address] [id number] [place] [address]- 2152 14 Oct, 2014 [facility] [place] [facility] [address] [id number] [place] [address]- 6883 15 Aug, 2014 [facility] [place] [facility] [address] [id number] [place] [address]- 5907 15 Aug, 2014 [facility] [place] [facility] [address] [id number] [place] [address]- 1479 17 Jul, 2014 [facility] [place] [facility] [address] [id number] [place] [address]- 6101 17 Jul, 2014 [facility] [place] [facility] [address] [id number] [place] [address]- 0351 14 Jul, 2014 [facility] [place] [facility] [address] [id number] [place] [address]- 7655 14 Jul, 2014 [facility] [place] [facility] [address] [id number] [place] [address]- 9736 19 Jun, 2014 [facility] [place] [facility] [address] [id number] [place] [address]- 7941 19 Jun, 2014 [facility] [place] [facility] [address] [id number] [place] [address]- 5879 19 Jun, 2014 [facility] [place] [facility] [address] [id number] [place] [address]- 3035 19 Jun, 2014 [facility] [place] [facility] [address] [id number] [place] [address]- 3770 24 Mar, 2014 [facility] [place] [facility] [address] [id number] [place] [address]- 2248 24 Mar, 2014 [facility] [place] [facility] [address] [id number] [place] [address]- 9838 15 Mar, 2013 [facility] [place] [facility] [address] [id number] [place] [address]- 5869 15 Mar, 2013 [facility] [place] [facility] [address] [id number] [place] [address]- 9779 Mar, 2013 [facility] [place] [facility] [address] [id number] [place] [address]- 6193 08 Mar, 2013 [facility] [place] [facility] [address] [id number] [place] [address]- 1184 Mar, 2013 [facility] [place] [facility] [address] [id number] [place] [address]- 5057 Mar, [facility] [place] [facility] [address] [id number] [place] [address]- 4347 Mar, [facility] [place] [facility] [address] [id number] [place] [address]- 5399 Mar, [facility] [place] [facility] [address] [id number] [place] [address]- 3638 Mar, [facility] [place] [facility] [address] [id number] [place] [address]- 5553 Mar, [facility] [place] [facility] [address] [id number] [place] [address]- 0230 Mar, [facility] [place] [facility] [address] [id number] [place] [address]- 8702 Mar, [facility] [place] [facility] [address] [id number] [place] [address]- 1334 Mar, [facility] [place] [facility] [address] [id number] [place] [address]- 2835 Mar, [facility] [place] [facility] [address] [id number] [place] [address]- 2485 Mar, [facility] [place] [facility] [address] [id number] [place] [address]- 7552 Mar, [facility] [place] [facility] [address] [id number] [place] [address]- 2050 January, [facility] [address] [id number] [place] [address]- 4246 January, [facility] [address] [id number] [place] [address]- 8253 January, [facility] [address] [id number] [place] [address]- 6171 January, [facility] [address] [id number] [place] [address]- 9667 January, [facility] [address] [id number] [place] [address]- 9880 January, [facility] [address] [id number] [place] [address]- 5406 January, [facility] [address] [id number] [place] [address]- 7877 January, [facility] [address] [id number] [place] [address]- 9649 January, [facility] [address] [id number] [place] [address]- 8236 January, [facility] [address] [id number] [place] [address]- 3520 Dec, [facility] [address] [id number] [place] [address]- 8181 Dec, [facility] [address] [id number] [place] [address]- 5156 Dec, [facility] [place] [facility] [address] [id number] [place] [address]- 2113 Dec, [facility] [address] [id number] [place] [address]- 6046 Dec, [facility] [address] [id number] [place] [address]- 5060 Dec, [facility] [place] [facility] [address] [id number] [place] [address]- 1880 Dec, [facility] [place] [facility] [address] [id number] [place] [address]- 0931 Dec, [facility] [place] [facility] [address] [id number] [place] [address]- 6351 Dec, [facility] [place] [facility] [address] [id number] [place] [address]- 9128 Dec, [facility] [place] [facility] [address] [id number] [place] [address]- 3826 Dec, [facility] [place] [facility] [address] [id number] [place] [address]- 3656 Dec, [facility] [place] [facility] [address] [id number] [place] [address]- 6319 Dec, [facility] [place] [facility] [address] [id number] [place] [address]- 5965 Dec, [facility] [place] [facility] [address] [id number] [place] [address]- 1205 Nov, [facility] [place] [facility] [address] [id number] [place] [address]- 6988 Nov, [facility] [place] [facility] [address] [id number] [place] [address]- 0435 Nov, [facility] [place] [facility] [address] [id number] [place] [address]- 9266 Nov, [facility] [place] [facility] [address] [id number] [place] [address]- 4187 Aug, [facility] [place] [facility] [address] [id number] [place] [address]- 6468 Aug, [facility] [place] [facility] [address] [id number] [place] 2086 16 Aug, 2013 [facility] [place] [facility] [address] [id number], [place] [address]- 4324 Aug, [facility] [place] [facility] [address] [id number] [place] [address]- 4082 Aug, [facility] [place] [facility] [address] [id number] [place] [address]- 8256 Aug, [facility] [place] [facility] [address] [id number] [place] [address]- 0779 Jul, [facility] [place] [facility] [address] [id number] [place] [address]- 9507 Jul, [facility] [place] [facility] [address] [id number] [place] 6791 May, [facility] [place] [facility] [address] [id number] [place] [address]- 8999 May, [facility] [place] [facility] [address] [id number] [place] [address]- 5212 Mar, [facility] [place] [facility] [address] [id number] [place] [address]- 9498 Mar, [facility] [place] [facility] [address] [id number] [place] [address]- 6245 Mar, [facility] [place] [facility] [address] [id number] [place] [address]- 6131 Mar, [facility] [place] [facility] [address] [id number], [place] [address]- 1214 Mar, [facility] [place] [facility] [address] [id number] [place] [address]- 5152 Mar, [facility] [place] [facility] [address] [id number] [place] [address]- 6455 Mar, [facility] [place] [facility] [address] [id number] [place] [address]- 9714 Mar, [facility] [place] [facility] [address] [id number] [place] [address]- 0816 Dec, [facility] [place] [facility] [address] [id number] [place] [address]- 7216 16 Dec, 2012 [facility] [address] [id number] [place] [address]- 6339 15 Dec, 2012 [facility] [place] [facility] [address] [id number] [place] [address]- 3216 Dec, [facility] [address] [id number] [place] [address]- 2916 Dec, [facility] [place] [facility] [address] [id number] [place] [address]- 1625 Nov, [facility] [address] [id number] [place] [address]- 4358 Nov, [facility] [address] [id number] [place] [address]- 8560 Oct, [facility] [address] [id number] [place] [address]- 1625 Oct, [facility] [address] [id number] [place] [address]- 5649 Oct, [facility] [address] [id number] [place] [address]- 4542 Oct, [facility] [address] [id number] [place] [address]- 7287 Aug, [facility] [address] [id number] [place] [address]- 9521 Aug, [facility] [address] [id number] [place] [address]- 4907 Aug, [facility] [place] [facility] [address] [id number] [place] [address]- 9114 Aug, [facility] [place] [facility] [address] [id number] [place] [address]- 4064 Aug, [facility] [place] [facility] [address] [id number] [place] [address]- 5814 Aug, [facility] [place] [facility] [address] [id number] [place] [address]- 2846 Jul, [facility] [place] [facility] [address] [id number] [place] [address]- 2886 15 Jul, 2012 [facility] [place] [facility] [address] [id number] [place] [address]- 9496 Jun, [facility] [place] [facility] [address] [id number] [place] [address]- 2652 Jun, [facility] [place] [facility] [address] [id number] [place] [address]- 1319 May, [facility] [place] [facility] [address] [id number] [place] [address]- 9308 May, [facility] [place] [facility] [address] [id number] [place] [address]- 0809 May, [facility] [place] [facility] [address] [id number] [place] [address]- 4505 Mar, [facility] [place] [facility] [address] [id number] [place] [address]- 0006 Mar, [facility] [place] [facility] [address] [id number] [place] [address]- 1661 Mar, [facility] [place] [facility] [address] [id number] [place] [address]- 7122 Mar, [facility] [place] [facility] [address] [id number], [place] [address]- 1847 Mar, [facility] [place] [facility] [address] [id number] [place] [address]- 9176 Mar, [facility] [place] [facility] [address] [id number] [place] [address] Mar, [facility] [place] [facility] [address] [id number] [place] [address] January, [facility] [place] [facility] [address] [id number] [place] [address] January, [facility] [address] [id number] [place] [address] January, [facility] [place] [facility] [address] [id number] [place] [address] January, [facility] [address] [id number] [place] [address] January, [facility] [place] [facility] [address] [id number] [place] [address] Nov, [facility] [place] [facility] [address] [id number] [place] [address] Nov, [facility] [place] [facility] [address] [id number] [place] [address] Nov, [facility] [place] [facility] [address] [id number] [place] [address] Nov, [facility] [address] [id number] [place] [address] Nov, [facility] [place] [facility] [address] [id number] [place] [address] Oct, [facility] [address] [facility] [id number] [place] [address] Oct, [facility] [place] [facility] [address] [id number] [place] [address] Aug, [facility] [place] [facility] [address] [id number] [place] [address] Aug, [facility] [place] [facility] [address] [id number] [place] [address] Aug, [facility] [place] [facility] [address] [id number] [place] [address] Aug, [facility] [place] [facility] [address] [id number] [place] [address] Jul, [facility] [address] [facility] [id number] [place] [address] Jul, [facility] [address] [facility] [id number] [place] [address] Mar, IMMUNIZATIONS No Known Immunizations SOCIAL HISTORY Never Assessed REASON FOR VISIT Pain left hip, pain radiates to lower leg. EMMA Miguel PLAN OF CARE Activity Details Follow Up 3 Months Reason:needs appt w/[place] VITAL SIGNS Height 71 in 2018-02-22 Weight 207 lbs 2018-02-22 Temperature 97.9 degrees Fahrenheit 2018-02-22 Heart Rate 86 bpm 2018-02-22 Respiratory Rate 20 2018-02-22 BMI 28.87 kg/m2 2018-02-22 Blood pressure systolic 128 mmHg 2018-02-22 Blood pressure diastolic 74 mmHg 2018-02-22 MEDICATIONS Medication Instructions Dosage Frequency Start Date End Date Duration Status Rabeprazole Sodium 20 MG TAKE ONE TABLET BY MOUTH TWICE DAILY 30 Active Oxycodone HCl 5 mg Orally every 6 hrs as needed 1 tablet Nov, Active Lisinopril 10 MG TAKE ONE TABLET BY MOUTH ONCE DAILY 30 Active GlipiZIDE 10 MG TAKE ONE TABLET BY MOUTH TWICE DAILY 30 Active Famotidine 20 MG TAKE ONE TABLET BY MOUTH TWICE DAILY 30 Active PredniSONE 10 mg Orally Once a day 4 tabs x 4 days, 3 tabs x 4 days, 2 tabs x 4 days, then 1 tab x 4 days 24h January, Mar, 16 days Active Invokana 100 MG TAKE ONE TABLET BY MOUTH ONCE DAILY 30 Active Aleve 220 MG Orally every 12 hrs 1 tablet with food or milk as needed 12h Not-Taking Flonase 50 MCG/ACT Nasally twice a day 1 spray in each nostril 12h Not-Taking Victoza 18 MG/3ML INJECT 1.8 MG SUBCUTANEOUSLY ONCE DAILY 30 Active Atorvastatin Calcium 10 MG TAKE ONE TABLET BY MOUTH ONCE DAILY 30 Active MetFORMIN HCl ER 500 MG TAKE TWO TABLETS BY MOUTH TWICE DAILY 30 Active Flomax 0.4 MG Orally Once a day 1 capsule 24h Jul, 30 days Active Blood Glucose Test Strip Test Strips Breeze 2 test strips Once a day test blood sugar 24h Aug, Active Loratadine 10 MG TAKE ONE TABLET BY MOUTH ONCE DAILY 30 Active Aspirin 81 mg 1 tablet by Oral route 1 time per day Nov, Active Pen [place] 31G X 6 MM use as directed Dec, Active Aciphex 20 mg Orally 2 times a day 1 tablet 12h Aug, 30 days Active Blood Glucose Monitor glucometer Breeze 2 and microlet lancets Once a day test blood sugar 24h Aug, Active RESULTS No Results PROCEDURES No Known procedures INSTRUCTIONS MEDICATIONS ADMINISTERED No Known Medications MEDICAL (GENERAL) HISTORY Type Description Date Medical History diabetes mellitus Medical History hypertension Medical History kidney stones Medical History acid reflux Medical History chronic pain Medical History Dyslipidemia
--- OUTSIDE RECORDS SUMMARY | 2019-01-14 11:05 | XMS REPORT ---
Author Author MEME SHAKEEL [facility] Address [address] [place] [address] Care Team Providers Care Music Therapy Specialist Name Role Phone HAIDER VALENTINEY Unavailable PROBLEMS Type Condition ICD9-CM Code MDN70-VV Code Onset Dates Condition Status SNOMED Code Problem Hyperlipidemia E78.5 Active 79220514 Problem GERD (gastroesophageal reflux disease) K21.9 Active 993729327 Problem Allergic rhinitis J30.9 Active 77086586 Problem Other elevated white blood cell count D72.828 Active 250683061 Problem Onychomycosis B35.1 Active 766693861 Problem Type 2 diabetes mellitus with hyperglycemia E11.65 Active 234417780 Problem Hx of renal calculi Z87.442 Active 032498027 Problem Essential hypertension I10 Active 06978293 Problem Microalbuminuria R80.9 Active 811756112 ALLERGIES No Information ENCOUNTERS Encounter Location Date Diagnosis [place] [address] [address]- [address] Jun, [place] [address] [place] [id number] [place] [address] 14583- 1076 May, Other infective chronic otitis externa of right ear H60.391 [place] [address] [place] [id number] [place] [address] 04135- 0228 May, [place] [address] [place] [id number] [place] [address] 18198- 3412 May, Right ear pain H92.01 and Acute otitis externa of right ear , unspecified type H60.501 [facility] [address] [place] [id number] [place] [address] 37977- 0999 Mar, [place] [address] 09170- 8182 Mar, Type 2 diabetes mellitus with hyperglycemia E11.65 ; GERD ( gastroesophageal reflux disease) K21.9 ; Right hip pain M25.551 ; Hyperlipidemia E78.5 and Essential hypertension I10 [place] [address] 30452- 1496 Mar, [place] [address] 45787- 7371 January, 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 [place] [address] 05118- 4521 January, [place] [address] 88528- 9167 Nov, [place] [address] 33930- 5944 Nov, Other elevated white blood cell count D72.[address] 64293- 3950 Nov, Type 2 diabetes mellitus with hyperglycemia E11.65 ; Hx of renal calculi Z87.442 ; Callus L84 ; Hyperlipidemia E78.5 and Essential hypertension I10 [place] [address] [place] [id number] [place] [address] 37733- 6199 Oct, Hx of renal calculi Z87.442 [place] [address] [place] [id number] [place] [address] 07145- 4437 Oct, Type 2 diabetes mellitus with hyperglycemia E11.65 ; Hyperlipidemia E78.5 ; GERD (gastroesophageal reflux disease) K21.9 and Essential hypertension I10 [place] [address] 93224- 0619 Jul, [place] [address] 50092- 7311 May, [place] [address] 40312- 1265 Mar, Type 2 diabetes mellitus with hyperglycemia E11.65 ; Hyperlipidemia E78.5 ; GERD (gastroesophageal reflux disease) K21.9 ; Hx of renal calculi Z87.442 ; Essential hypertension I10 ; Encounter for immunization Z23 and Arm numbness R20.0 [place] [address] 75713- 8559 Mar, Type 2 diabetes mellitus with hyperglycemia E11.65 ; Hyperlipidemia E78.5 and Essential hypertension I10 [address] 46280- 2329 January, Type 2 diabetes mellitus with hyperglycemia E11.65 ; GERD ( gastroesophageal reflux disease) K21.9 ; Hyperlipidemia E78.5 ; Hx of renal calculi Z87.442 ; Allergic rhinitis J30.9 and Essential hypertension I10 [address] 18677- 2514 January, Type 2 diabetes mellitus with hyperglycemia E11.[address] 31599- 7569 January, [address] 49683- 4080 Oct, Neuropathic pain M79.2 and Onychomycosis B35.[address] 12466- 6330 Aug, [address] 50973- 8620 Aug, Type 2 diabetes mellitus with hyperglycemia E11.65 ; GERD ( gastroesophageal reflux disease) K21.9 ; Hx of renal calculi Z87.442 ; Essential hypertension I10 ; Chronic cough R05 ; Chest pain, unspecified type R07.9 ; Dry skin dermatitis L85.3 ; Allergic rhinitis J30.9 ; Hyperlipidemia E78.5 and Encounter for immunization Z23 [place] [address] 81783- 3182 Aug, [address] 85345- 0234 Jun, [facility] [address] [place] [address] [id number] [place] [address] 09472- 3933 Jun, [facility] [address] [place] [address] [id number] [place] [address] 55153 -9981 Jun, [facility] [address] [place] [id number] [place] [address] 70031- 6357 Jun, [facility] [address] [id number] [place] [address] 95033 -6563 Jun, Rib pain on right side R07.81 [facility] [address] 42993- 4079 May, Chest pain, unspecified type R07.9 [facility] [address] [place] [id number] [place] [address] 66016- 7847 May, [facility] [address] [place] [address] [id number] [place] [address] 02467 -0673 Mar, Chest pain, unspecified type R07.9 [facility] [address] [place] [id number] [place] [address] 48306- 5878 Mar, [facility] [address] [place] [address] [id number] [place] [address] 69058- 0268 Mar, Type 2 diabetes mellitus with hyperglycemia E11.65 ; GERD ( gastroesophageal reflux disease) K21.9 and Hx of renal calculi Z87.442 [facility] [address] [place] [address] [id number] [place] [address] 59731- 7050 Dec, [facility] [address] [place] [id number] [place] [address] 04518- 0879 Nov, [facility] [address] [place] [address] [id number] [place] [address] 98352- 7672 Nov, Chronic cough R05 [facility] [address] [place] [id number] [place] [address] 82362- 4224 Nov, [facility] [address] [place] [address] [id number] [place] [address] 41330- 4320 Nov, [facility] [address] 75798- 2947 Nov, [facility] [address] [place] [id number] [place] [address] 46273- 4802 Nov, [facility] [address] 33778- 8614 Nov, Type 2 diabetes mellitus with hyperglycemia E11.65 ; Elevated TSH R94.6 ; Hyperlipidemia E78.5 ; Microalbuminuria R80.9 ; Tinea pedis B35.3 ; Chronic cough R05 ; GERD (gastroesophageal reflux disease) K21.9 ; Allergic rhinitis J30.9 and Hx of renal calculi Z87.442 [facility] [address] 27283- 1118 Aug, [facility] [address] 15676- 9189 Aug, Hx of renal calculi Z87.442 [facility] [address] 68801- 8054 Aug, [facility] [address] [place] [id number] [place] [address] 31193- 8789 Aug, [facility] [address] 23206- 9318 Aug, [facility] [address] 99209- 3375 Aug, Type 2 diabetes mellitus without complication E11.9 ; Elevated TSH R94.6 and Hyperlipidemia E78.5 [facility] [address] 394292- 0889 Jul, [facility] [address] [place] [id number] [place] [address] 731793- 9232 Jun, [facility] [address] [place] [address]- 6261 Mar, Abnormal thyroid blood test 794.5 [facility] [id number] [address]- 4773 Mar, [facility] [id number] [address]- 8693 Mar, Abnormal thyroid blood test 794.5 [facility] [id number] [place] [address] 30395- 5228 Mar, Abnormal thyroid blood test 794.5 [facility] [id number] [place] [address] 532998- 7804 Mar, [facility] [id number] [place] [address] 42941- 4335 Mar, Diabetes type 2, uncontrolled 250.02 and Fungal infection of foot 110.4 [facility] [id number] [place] [address] 87229- 5454 Mar, Left flank pain 789.09 [facility] [id number] [address]- 3487 January, Left flank pain 789.09 [facility] [address] [address] Dec, [facility] [id number] [address]- 8089 Dec, [facility] [id number] [address]- 7374 Dec, [facility] [id number] 9326 Nov, [facility] [id number] [address]- 7766 Nov, [facility] [id number] [address]- 6966 Nov, [facility] [address] [place] [id number] [place] [address]- 7667 02 Nov, 2014 [facility] [address] [id number] [place] [address]- 9741 30 Oct, 2014 [facility] [place] [facility] [address] [id number] [place] [address]- 8441 30 Oct, 2014 [facility] [address] [id number] [place] [address]- 9903 15 Oct, 2014 [facility] [place] [facility] [address] [id number] [place] [address]- 2639 15 Oct, 2014 [facility] [address] [id number] [place] [address]- 4394 14 Oct, 2014 [facility] [place] [facility] [address] [id number] [place] [address]- 3314 14 Oct, 2014 [facility] [address] [id number] [place] [address]- 9505 15 Aug, 2014 [facility] [address] [id number] [place] [address]- 5338 15 Aug, 2014 [facility] [place] [facility] [address] [id number] [place] [address]- 9603 17 Jul, 2014 [facility] [address] [id number] [place] [address]- 5285 17 Jul, 2014 [facility] [place] [facility] [address] [id number] [place] [address]- 6429 14 Jul, 2014 [facility] [place] [facility] [address] [id number] [place] [address]- 9850 14 Jul, 2014 [facility] [place] [facility] [address] [id number] [place] [address]- 6720 19 Jun, 2014 [facility] [place] [facility] [address] [id number] [place] [address]- 2719 19 Jun, 2014 [facility] [place] [facility] [address] [id number] [place] [address]- 5206 Jun, [facility] [place] [facility] [address] [id number] [place] [address]- 6337 Jun, [facility] [place] [facility] [address] [id number] [place] [address]- 6734 Mar, [facility] [place] [facility] [address] [id number] [place] [address]- 4913 Mar, [facility] [place] [facility] [address] [id number] [place] [address]- 6552 Mar, [facility] [place] [facility] [address] [id number] [place] [address]- 7806 Mar, [facility] [place] [facility] [address] [id number] [place] [address]- 5527 Mar, [facility] [place] [facility] [address] [id number] [place] [address]- 2440 Mar, [facility] [place] [facility] [address] [id number] [place] [address]- 5492 Mar, [facility] [place] [facility] [address] [id number] [place] [address]- 0585 Mar, [facility] [place] [facility] [address] [id number] [place] [address]- 7132 Mar, [facility] [place] [facility] [address] [id number] [place] [address]- 5814 Mar, [facility] [place] [facility] [address] [id number] [place] [address]- 4577 Mar, [facility] [place] [facility] [address] [id number] [place] [address]- 0650 Mar, [facility] [place] [facility] [address] [id number] [place] [address]- 3220 Mar, [facility] [place] [facility] [address] [id number] [place] [address]- 3148 Mar, [facility] [place] [facility] [address] [id number] [place] [address]- 9584 Mar, [facility] [place] [facility] [address] [id number] [place] [address]- 2013 Mar, [facility] [place] [facility] [address] [id number] [place] [address]- 8423 Mar, [facility] [place] [facility] [address] [id number] [place] [address]- 2278 Mar, [facility] [place] [facility] [address] [id number] [place] [address]- 7243 January, [facility] [place] [facility] [address] [id number] [place] [address]- 3069 January, [facility] [place] [facility] [address] [id number] [place] [address]- 3764 January, [facility] [place] [facility] [address] [id number] [place] [address]- 3396 January, [facility] [place] [facility] [address] [id number] [place] [address]- 7999 January, [facility] [place] [facility] [address] [id number] [place] [address]- 6218 January, [facility] [place] [facility] [address] [id number] [place] [address]- 2639 January, [facility] [place] [facility] [address] [id number] [place] [address]- 6856 January, [facility] [place] [facility] [address] [id number] [place] [address]- 2421 January, [facility] [place] [facility] [address] [id number] [place] [address]- 3514 January, [facility] [place] [facility] [address] [id number] [place] [address]- 9882 Dec, [facility] [place] [facility] [address] [id number] [place] [address]- 2413 Dec, [facility] [place] [facility] [address] [id number] [place] [address]- 4550 Dec, [facility] [place] [facility] [address] [id number] [place] [address]- 9719 Dec, [facility] [place] [facility] [address] [id number] [place] [address]- 8576 Dec, [facility] [place] [facility] [address] [id number] [place] [address]- 7032 Dec, [facility] [place] [facility] [address] [id number] [place] [address]- 6651 Dec, [facility] [place] [facility] [address] [id number] [place] [address]- 1400 Dec, [facility] [place] [facility] [address] [id number] [place] [address]- 5749 Dec, [facility] [place] [facility] [address] [id number] [place] [address]- 2593 Dec, [facility] [place] [facility] [address] [id number] [place] [address]- 1246 Dec, [facility] [place] [facility] [address] [id number] [place] [address]- 5796 Dec, [facility] [place] [facility] [address] [id number] [place] [address]- 6849 Dec, [facility] [place] [facility] [address] [id number] [place] [address]- 9919 Dec, [facility] [place] [facility] [address] [id number] [place] [address]- 2856 Nov, [facility] [place] [facility] [address] [id number] [place] [address]- 4226 Nov, [facility] [place] [facility] [address] [id number] [place] [address]- 5291 Nov, [facility] [place] [facility] [address] [id number] [place] [address]- 4845 Nov, [facility] [place] [facility] [address] [id number] [place] [address]- 0332 Aug, [facility] [place] [facility] [address] [id number] [place] [address]- 0802 Aug, [facility] [place] [facility] [address] [id number] [place] [address]- 0686 Aug, [facility] [place] [facility] [address] [id number] [place] [address]- 4989 Aug, [facility] [place] [facility] [address] [id number] [place] [address]- 1606 Aug, [facility] [place] [facility] [address] [id number] [place] [address]- 2775 Aug, [facility] [place] [facility] [address] [id number] [place] [address]- 0841 Jul, [facility] [place] [facility] [address] [id number] [place] [address]- 7528 Jul, [facility] [place] [facility] [address] [id number] [place] [address]- 1407 May, [facility] [place] [facility] [address] [id number] [place] [address]- 9702 May, [facility] [place] [facility] [address] [id number], [place] [address]- 3671 Mar, [facility] [place] [facility] [address] [id number], [place] [address]- 9862 Mar, [facility] [place] [facility] [address] [id number] [place] [address]- 1073 Mar, [facility] [place] [facility] [address] [id number], [place] [address]- 0807 Mar, [facility] [place] [facility] [address] [id number] [place] [address]- 1873 Mar, [facility] [place] [facility] [address] [id number] [place] [address]- 7759 11 Mar, 2013 [facility] [address] [id number] [place] [address]- 2580 11 Mar, 2013 [facility] [place] [facility] [address] [id number] [place] [address]- 5041 10 Mar, 2013 [facility] [address] [id number] [place] [address]- 7827 17 Dec, 2012 [facility] [place] [facility] [address] [id number] [place] [address]- 6950 16 Dec, 2012 [facility] [address] [id number] [place] [address]- 0975 15 Dec, 2012 [facility] [place] [facility] [address] [id number] [place] [address]- 4057 Dec, [facility] [address] [id number] [place] [address]- 3062 Dec, [facility] [place] [facility] [address] [id number] [place] [address]- 9067 Nov, [facility] [place] [facility] [address] [id number] [place] [address]- 2661 Nov, [facility] [address] [id number] [place] [address]- 6802 Oct, [facility] [place] [facility] [address] [id number] [place] [address]- 0244 30 Oct, 2012 [facility] [place] [facility] [address] [id number] [place] [address]- 8718 Oct, [facility] [place] [facility] [address] [id number] [place] [address]- 3812 Oct, [facility] [place] [facility] [address] [id number] [place] [address]- 5183 Aug, [facility] [place] [facility] [address] [id number] [place] [address]- 3567 Aug, [facility] [place] [facility] [address] [id number] [place] [address]- 7090 Aug, [facility] [place] [facility] [address] [id number] [place] [address]- 6627 Aug, [facility] [place] [facility] [address] [id number] [place] [address]- 0578 Aug, [facility] [place] [facility] [address] [id number] [place] [address], [place] [address]- 3379 Aug, [facility] [place] [facility] [address] [id number] [place] [address]- 6620 Jul, [facility] [place] [facility] [address] [id number] [place] [address]- 8202 Jul, [facility] [place] [facility] [address] [id number] [place] [address]- 5746 Jun, [facility] [place] [facility] [address] [id number] [place] [address]- 8701 Jun, [facility] [place] [facility] [address] [id number] [place] [address]- 6452 May, [facility] [place] [facility] [address] [id number] [place] [address]- 7250 May, [facility] [place] [facility] [address] [id number] [place] [address]- 8639 May, [facility] [place] [facility] [address] [id number] [place] [address]- 7960 Mar, [facility] [place] [facility] [address] [id number] [place] [address]- 9437 Mar, [facility] [place] [facility] [address] [id number] [place] [address]- 8535 Mar, [facility] [place] [facility] [address] [id number] [place] [address]- 2710 Mar, [facility] [place] [facility] [address] [id number] [place] [address]- 3586 Mar, [facility] [address] [id number] [place] [address]- 9061 Mar, [facility] [place] [facility] [address] [id number] [place] [address]- 9656 Mar, [facility] [address] [id number] [place] [address]- 3596 January, [facility] [address] [id number] [place] [address]- 3712 January, [facility] [address] [id number] [place] [address]- 3402 January, [facility] [address] [id number] [place] [address]- 2556 January, [facility] [address] [id number] [place] [address] January, [facility] [place] [facility] [address] [id number] [place] [address] Nov, [facility] [address] [id number] [place] [address] Nov, [facility] [place] [facility] [address] [id number] [place] [address] Nov, [facility] [address] [id number] [place] [address] Nov, 2011 [facility] [place] [facility] [address] [id number] [place] [address] Nov, [facility] [place] [facility] [address] [id number] [place] [address] Oct, [facility] [place] [facility] [address] [id number] [place] [address] Oct, [facility] [place] [facility] [address] [id number] [place] [address] Aug, [facility] [place] [facility] [address] [facility] [id number] [address] Aug, [facility] [address] [id number] [address] Aug, [facility] [id number] [address] Aug, [facility] [address] [id number], [place] [address] Jul, [facility] [address] [id number] [address] Jul, [facility] [address] [facility] [id number] [address] Mar, IMMUNIZATIONS No Known Immunizations SOCIAL HISTORY [...]
--- OUTSIDE RECORDS SUMMARY | 2019-01-14 11:06 | XMS REPORT ---
Author Author MEME SHAKEEL [facility] Address [address] [place] [address] Care Team Providers Care Manager Channel Name Role Phone HAIDER VALENTINEY Unavailable PROBLEMS Type Condition ICD9-CM Code FQV04-DO Code Onset Dates Condition Status SNOMED Code Problem Hyperlipidemia E78.5 Active 33649221 Problem GERD (gastroesophageal reflux disease) K21.9 Active 198579781 Problem Allergic rhinitis J30.9 Active 56554722 Problem Other elevated white blood cell count D72.828 Active 949950835 Problem Onychomycosis B35.1 Active 179026985 Problem Type 2 diabetes mellitus with hyperglycemia E11.65 Active 194242042 Problem Hx of renal calculi Z87.442 Active 769338512 Problem Essential hypertension I10 Active 72330311 Problem Microalbuminuria R80.9 Active 347836012 ALLERGIES No Information ENCOUNTERS Encounter Location Date Diagnosis [place] [address] [address] Jun, [facility] [id number] [place] [address] 07085- 8650 Mar, [facility] [id number] [place] [address] 44369- 0233 Mar, Type 2 diabetes mellitus with hyperglycemia E11.65 ; GERD ( gastroesophageal reflux disease) K21.9 ; Right hip pain M25.551 ; Hyperlipidemia E78.5 and Essential hypertension I10 [facility] [id number] [place] [address] 32692- 4981 Mar, [facility] [id number] [place] [address] 75750- 3523 January, 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 [place] [id number] [place] [address] 49355- 6730 January, [place] [address] [address]- 7334 Nov, [place] [address] 25692- 1997 Nov, Other elevated white blood cell count D72.828 [place] [address] 75711- 2808 Nov, Type 2 diabetes mellitus with hyperglycemia E11.65 ; Hx of renal calculi Z87.442 ; Callus L84 ; Hyperlipidemia E78.5 and Essential hypertension I10 [place] [address] 46411- 8831 Oct, Hx of renal calculi Z87.442 [place] [address] 79731- 9154 Oct, Type 2 diabetes mellitus with hyperglycemia E11.65 ; Hyperlipidemia E78.5 ; GERD (gastroesophageal reflux disease) K21.9 and Essential hypertension I10 [place] [address] 76248- 3568 Jul, [place] [address] 37086- 3712 May, [place] [id number] [place] [address] 72394- 5752 Mar, Type 2 diabetes mellitus with hyperglycemia E11.65 ; Hyperlipidemia E78.5 ; GERD (gastroesophageal reflux disease) K21.9 ; Hx of renal calculi Z87.442 ; Essential hypertension I10 ; Encounter for immunization Z23 and Arm numbness R20.[address] [address]- [address] Mar, Type 2 diabetes mellitus with hyperglycemia E11.65 ; Hyperlipidemia E78.5 and Essential hypertension I10 [place] [address] 57963- 9990 January, Type 2 diabetes mellitus with hyperglycemia E11.65 ; GERD ( gastroesophageal reflux disease) K21.9 ; Hyperlipidemia E78.5 ; Hx of renal calculi Z87.442 ; Allergic rhinitis J30.9 and Essential hypertension I10 [facility] [address] 13236- 8636 January, Type 2 diabetes mellitus with hyperglycemia E11.65 [place] [address] 18512- 9240 January, [place] [address] 02415- 0777 Oct, Neuropathic pain M79.2 and Onychomycosis B35.1 [place] [address] 70083- 6875 Aug, [place] [address] 97399- 9158 Aug, Type 2 diabetes mellitus with hyperglycemia E11.65 ; GERD ( gastroesophageal reflux disease) K21.9 ; Hx of renal calculi Z87.442 ; Essential hypertension I10 ; Chronic cough R05 ; Chest pain, unspecified type R07.9 ; Dry skin dermatitis L85.3 ; Allergic rhinitis J30.9 ; Hyperlipidemia E78.5 and Encounter for immunization Z23 [facility] [address] 65355- 2163 Aug, [facility] [address] 62271- 3304 Jun, [place] [address] 40942- 0494 Jun, [facility] [address] 94210 -3667 Jun, [facility] [address] 80341- 0011 Jun, [facility] [address] 51906 -1315 Jun, Rib pain on right side R07.81 [facility] [id number] [place] [address] 05953- 7894 May, Chest pain, unspecified type R07.9 [facility] [id number] [place] [address] 79862- 6190 May, [facility] [id number] [place] [address] 98543 -0349 Mar, Chest pain, unspecified type R07.9 [facility] [id number] [place] [address] 88155- 2230 Mar, [facility] [id number] [place] [address] 22665- 4120 Mar, Type 2 diabetes mellitus with hyperglycemia E11.65 ; GERD ( gastroesophageal reflux disease) K21.9 and Hx of renal calculi Z87.442 [facility] [id number] [place] [address] 22783- 3580 Dec, [facility] [id number] [place] [address] 70716- 6766 Nov, [facility] [id number] [place] [address] 14052- 7364 Nov, Chronic cough R05 [facility] [id number] [place] [address] 01640- 4477 Nov, [facility] [id number] [place] [address] 35242- 2251 Nov, [facility] [id number] [place] [address] 96261- 6454 Nov, [facility] [id number] [place] [address] 58355- 8560 Nov, [facility] [id number] [place] [address] 82717- 9349 Nov, Type 2 diabetes mellitus with hyperglycemia E11.65 ; Elevated TSH R94.6 ; Hyperlipidemia E78.5 ; Microalbuminuria R80.9 ; Tinea pedis B35.3 ; Chronic cough R05 ; GERD (gastroesophageal reflux disease) K21.9 ; Allergic rhinitis J30.9 and Hx of renal calculi Z87.442 [facility] [id number] [place] [address] 23997- 4232 Aug, [facility] [address] 114055- 5556 Aug, Hx of renal calculi Z87.442 [place] [address] 55475- 2375 Aug, [place] [id number] [place] [address] 411213- 3903 Aug, [place] [id number] [place] [address] 08614- 0740 Aug, [place] [address] 03880- 8952 Aug, Type 2 diabetes mellitus without complication E11.9 ; Elevated TSH R94.6 and Hyperlipidemia E78.5 [place] [id number] [place] [address] 69343- 6170 Jul, [place] [id number] [place] [address] 72660- 1398 Jun, [place] [id number] [place] [address] 44299- 5973 Mar, Abnormal thyroid blood test 794.5 [place] [id number] [place] [address] 14961- 9821 Mar, [place] [address] 73034- 9845 Mar, Abnormal thyroid blood test 794.5 [place] [id number] [place] [address] 83162- 2599 Mar, Abnormal thyroid blood test 794.5 [facility] [address] [address]- 0620 Mar, [facility] [address], [place] [address]- 7087 Mar, Diabetes type 2, uncontrolled 250.02 and Fungal infection of foot 110.4 [facility] [address], [place] [address]- 2975 Mar, Left flank pain 789.09 [facility] [address], [place] [address]- 3433 January, Left flank pain 789.09 [facility] [id number] [place] [address] 68742- 8469 Dec, [facility] [id number] [address]- 0327 Dec, [facility] [address] [address]- 2913 Dec, [facility] [address], [place] [address]- 0500 Nov, [facility] [address], [place] [address]- 2743 Nov, [facility] [address], [place] [address]- 7118 Nov, [facility] [address], [place] [address]- 0163 Nov, [facility] [address] [place] [id number] [address]- 9421 Oct, [facility] [address] [address]- 6895 Oct, [facility] [address] [address]- 2952 Oct, [facility] [id number] [place] [address]- 0998 15 Oct, 2014 [facility] [place] [facility] [address] [id number] [place] [address]- 6868 14 Oct, 2014 [facility] [place] [facility] [address] [id number] [place] [address]- 4304 14 Oct, 2014 [facility] [place] [facility] [address] [id number] [place] [address]- 7368 15 Aug, 2014 [facility] [place] [facility] [address] [id number] [place] [address]- 1120 15 Aug, 2014 [facility] [place] [facility] [address] [id number] [place] [address]- 1868 17 Jul, 2014 [facility] [place] [facility] [address] [id number] [place] [address]- 9575 17 Jul, 2014 [facility] [place] [facility] [address] [id number] [place] [address]- 8414 14 Jul, 2014 [facility] [place] [facility] [address] [id number] [place] [address]- 0367 14 Jul, 2014 [facility] [place] [facility] [address] [id number] [place] [address]- 7670 19 Jun, 2014 [facility] [place] [facility] [address] [id number] [place] [address]- 3363 19 Jun, 2014 [facility] [place] [facility] [address] [id number] [place] [address]- 6444 19 Jun, 2014 [facility] [place] [facility] [address] [id number] [place] [address]- 8815 19 Jun, 2014 [facility] [place] [facility] [address] [id number] [place] [address]- 1483 24 Mar, 2014 [facility] [place] [facility] [address] [id number] [place] [address]- 1906 24 Mar, 2014 [facility] [place] [facility] [address] [id number] [place] [address]- 8496 15 Mar, 2014 [facility] [place] [facility] [address] [id number] [place] [address]- 3443 15 Mar, 2013 [facility] [place] [facility] [address] [id number] [place] [address]- 8189 10 Mar, 2013 [facility] [place] [facility] [address] [id number] [place] [address]- 0925 08 Mar, 2013 [facility] [place] [facility] [address] [id number] [place] [address]- 9643 Mar, 2013 [facility] [place] [facility] [address] [id number] [place] [address]- 1770 Mar, 2013 [facility] [place] [facility] [address] [id number] [place] [address]- 1383 Mar, [facility] [place] [facility] [address] [id number] [place] [address]- 9138 Mar, [facility] [place] [facility] [address] [id number] [place] [address]- 6486 Mar, [facility] [place] [facility] [address] [id number] [place] [address]- 1113 Mar, [facility] [place] [facility] [address] [id number] [place] [address]- 4616 Mar, [facility] [place] [facility] [address] [id number] [place] [address]- 2658 Mar, [facility] [place] [facility] [address] [id number] [place] [address]- 7363 Mar, [facility] [place] [facility] [address] [id number] [place] [address]- 5541 Mar, [facility] [place] [facility] [address] [id number] [place] [address]- 2249 Mar, [facility] [place] [facility] [address] [id number] [place] [address]- 8183 Mar, [facility] [place] [facility] [address] [id number] [place] [address]- 7256 January, [facility] [address] [id number] [place] [address]- 3898 January, [facility] [place] [facility] [address] [id number] [place] [address]- 7663 January, [facility] [place] [facility] [address] [id number] [place] [address]- 0142 January, [facility] [place] [facility] [address] [id number] [place] [address]- 4484 January, [facility] [place] [facility] [address] [id number] [place] [address]- 5845 January, [facility] [place] [facility] [address] [id number] [place] [address]- 9096 January, [facility] [place] [facility] [address] [id number] [place] [address]- 8638 January, [facility] [place] [facility] [address] [id number] [place] [address]- 0685 January, [facility] [place] [facility] [address] [id number] [place] [address]- 9667 January, [facility] [place] [facility] [address] [id number] [place] [address]- 9174 Dec, [facility] [place] [facility] [address] [id number] [place] [address]- 2414 Dec, [facility] [place] [facility] [address] [id number] [place] [address]- 7250 Dec, [facility] [place] [facility] [address] [id number] [place] [address]- 1581 Dec, [facility] [place] [facility] [address] [id number] [place] [address]- 2135 Dec, [facility] [place] [facility] [address] [id number] [place] [address]- 2244 Dec, [facility] [place] [facility] [address] [id number] [place] [address]- 0073 Dec, [facility] [address] [id number] [place] [address]- 6027 Dec, [facility] [address] [id number] [place] [address]- 8203 Dec, [facility] [address] [id number] [place] [address]- 2279 Dec, [facility] [address] [id number] [place] [address]- 4838 Dec, [facility] [address] [id number] [place] [address]- 7170 Dec, [facility] [address] [id number] [place] [address]- 9324 Dec, [facility] [address] [id number] [place] [address]- 4574 Dec, [facility] [address] [id number] [place] [address]- 4962 Nov, [facility] [address] [id number] [place] [address]- 0009 Nov, [facility] [address] [id number] [place] [address]- 3046 Nov, [facility] [address] [id number] [place] [address]- 7533 Nov, [facility] [address] [id number] [place] [address]- 4902 Aug, [facility] [place] [facility] [address] [id number] [place] [address]- 9617 Aug, [facility] [address] [id number] [place] [address]- 2338 16 Aug, 2013 [facility] [address] [id number] [place] [address]- 2392 Aug, [facility] [place] [facility] [address] [id number] [place] [address]- 6801 Aug, [facility] [place] [facility] [address] [id number] [place] [address]- 5966 Aug, [facility] [place] [facility] [address] [id number] [place] [address]- 6612 Jul, [facility] [place] [facility] [address] [id number] [place] [address]- 4635 Jul, [facility] [place] [facility] [address] [id number] [place] [address]- 3668 May, [facility] [place] [facility] [address] [id number] [place] [address]- 7016 May, [facility] [place] [facility] [address] [id number] [place] [address]- 5439 Mar, [facility] [place] [facility] [address] [id number], [place] [address]- 5844 Mar, [facility] [place] [facility] [address] [id number] [place] [address]- 5731 Mar, [facility] [place] [facility] [address] [id number] [address]- 5903 Mar, [facility] [place] [facility] [address] [id number] [address]- 7341 Mar, [facility] [place] [facility] [address] [id number], [place] [address]- 5092 Mar, [facility] [place] [facility] [address] [id number] [place] [address]- 9237 Mar, [facility] [place] [facility] [address] [id number], [place] [address]- 2716 Mar, [facility] [place] [facility] [address] [id number], [place] [address]- 9772 Dec, [facility] [place] [facility] [address] [id number], [place] [address]- 0606 16 Dec, 2012 [facility] [address] [id number] [place] [address]- 3863 Dec, [facility] [place] [facility] [address] [id number] [place] [address]- 6743 Dec, [facility] [address] [facility] [id number] [place] [address]- 5670 Dec, [facility] [address] [id number] [place] [address]- 9803 Nov, [facility] [address] [id number] [place] [address]- 8256 Nov, [facility] [address] [id number] [place] [address]- 5522 Oct, [facility] [address] [facility] [id number] [place] [address]- 2869 Oct, [facility] [address] [id number] [place] [address]- 0570 Oct, [facility] [address] [facility] [id number] [place] [address]- 3745 Oct, [facility] [address] [facility] [id number] [place] [address]- 6037 Aug, [facility] [address] [id number] [place] [address]- 6798 Aug, [facility] [place] [facility] [address] [id number], [place] [address]- 9586 Aug, [facility] [place] [facility] [address] [id number] [place] [address]- 2197 Aug, [facility] [place] [facility] [address] [facility] [id number] [place] [address]- 9093 Aug, [facility] [place] [facility] [address] [facility] [id number] [place] [address]- 5375 Aug, [facility] [place] [facility] [address] [id number] [place] [address]- 1606 15 Jul, 2012 [facility] [place] [facility] [address] [id number] [place] [address]- 5556 15 Jul, 2012 [facility] [place] [facility] [address] [id number] [place] [address]- 4496 20 Jun, 2012 [facility] [place] [facility] [address] [id number] [place] [address]- 3666 20 Jun, 2012 [facility] [place] [facility] [address] [id number] [place] [address]- 7707 May, [facility] [place] [facility] [address] [id number] [place] [address]- 9016 May, [facility] [place] [facility] [address] [id number] [place] [address]- 7826 May, [facility] [place] [facility] [address] [id number] [place] [address]- 2363 Mar, [facility] [place] [facility] [address] [id number] [place] [address]- 1826 Mar, [facility] [place] [facility] [address] [id number] [place] [address]- 9116 Mar, [facility] [place] [facility] [address] [id number] [place] [address]- 6364 Mar, [facility] [place] [facility] [address] [id number] [place] [address]- 6856 Mar, [facility] [place] [facility] [address] [id number] [place] [address]- 1948 Mar, [facility] [place] [facility] [address] [id number] [place] [address] Mar, [facility] [place] [facility] [address] [id number] [place] [address] January, [facility] [place] [facility] [address] [id number] [place] [address] January, [facility] [address] [id number] [place] [address] January, [facility] [place] [facility] [address] [id number] [place] [address] January, [facility] [place] [facility] [address] [id number] [place] [address] January, [facility] [place] [facility] [address] [id number] [place] [address] Nov, [facility] [place] [facility] [address] [id number] [place] [address] Nov, [facility] [place] [facility] [address] [id number] [place] [address] Nov, [facility] [place] [facility] [address] [id number] [place] [address] Nov, [facility] [place] [facility] [address] [id number] [place] [address] Nov, [facility] [place] [facility] [address] [id number] [place] [address] Oct, [facility] [place] [facility] [address] [id number] [place] [address] Oct, [facility] [place] [facility] [address] [id number] [place] [address] Aug, [facility] [place] [facility] [address] [id number] [place] [address] Aug, [facility] [place] [facility] [address] [id number] [place] [address] Aug, [facility] [place] [facility] [address] [id number] [place] [address] Aug, [facility] [place] [facility] [address] [id number] [place] [address] Jul, [facility] [place] [facility] [address] [facility] [id number] [place] [address] Jul, [facility] [address] [facility] [id number] [place] [address] Mar, IMMUNIZATIONS No Known Immunizations SOCIAL HISTORY [...]
--- OUTSIDE RECORDS SUMMARY | 2019-01-14 11:07 | XMS REPORT ---
Author Author ANDREW SALES [facility] eClinical[employer] Address Unknown Phone Unavailable Care Team Providers Care Unit Manager [employer] Name Role Phone ANDREW SALES CP Unavailable Allergies No Known Allergies Problems Problem Type Condition Code Onset Dates Condition Status Problem Type 2 diabetes mellitus without complication E11.9 Active Problem Elevated TSH R94.6 Active Problem Hx of renal calculi Z87.442 Active Problem Allergic rhinitis J30.9 Active Problem History of kidney stones Z87.442 Active Problem Hyperlipidemia E78.5 Active Problem GERD (gastroesophageal reflux disease) K21.9 Active Medications Medication Code System Code Instructions Start Date End Date Status Dosage Blood Glucose Test Strip NDC 0 Test Strips Breeze 2 test strips Once a day Sep 01, 2015 test blood sugar Blood Glucose Monitor NDC 0 glucometer Breeze 2 and microlet lancets Once a day Sep 01, 2015 test blood sugar Results No Known Results Summary Purpose eClinicalWorks Submission
--- OUTSIDE RECORDS SUMMARY | 2019-01-14 11:07 | XMS REPORT ---
Author Author MEME SHAKEEL [facility] Address [address] [place] [address] Care Team Providers Care Pharmacy Grad Intern Name Role Phone HAIDER VALENTINEY Unavailable PROBLEMS Type Condition ICD9-CM Code EQT91-QE Code Onset Dates Condition Status SNOMED Code Problem Hyperlipidemia E78.5 Active 51882158 Problem GERD (gastroesophageal reflux disease) K21.9 Active 301861284 Problem Allergic rhinitis J30.9 Active 30865517 Problem Other elevated white blood cell count D72.828 Active 336202407 Problem Onychomycosis B35.1 Active 358735760 Problem Type 2 diabetes mellitus with hyperglycemia E11.65 Active 959560297 Problem Hx of renal calculi Z87.442 Active 725607768 Problem Essential hypertension I10 Active 89679226 Problem Microalbuminuria R80.9 Active 751210405 ALLERGIES No Information ENCOUNTERS Encounter Location Date Diagnosis [place] [address] [address] Jun, [facility] [id number] [place] [address] 81923- 6722 Mar, [facility] [id number] [place] [address] 54361- 4876 Mar, Type 2 diabetes mellitus with hyperglycemia E11.65 ; GERD ( gastroesophageal reflux disease) K21.9 ; Right hip pain M25.551 ; Hyperlipidemia E78.5 and Essential hypertension I10 [facility] [id number] [place] [address] 62952- 7602 Mar, [facility] [id number] [place] [address] 08010- 3087 January, 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 [place] [id number] [place] [address] 51341- 1901 January, [place] [address] 95808- 3778 Nov, [place] [address] 05191- 1079 Nov, Other elevated white blood cell count D72.828 [place] [address] 94445- 9079 Nov, Type 2 diabetes mellitus with hyperglycemia E11.65 ; Hx of renal calculi Z87.442 ; Callus L84 ; Hyperlipidemia E78.5 and Essential hypertension I10 [place] [address] 72485- 6225 Oct, Hx of renal calculi Z87.442 [place] [address] 99432- 4929 Oct, Type 2 diabetes mellitus with hyperglycemia E11.65 ; Hyperlipidemia E78.5 ; GERD (gastroesophageal reflux disease) K21.9 and Essential hypertension I10 [place] [address] 92021- 6118 Jul, [place] [address] 99662- 6932 May, [place] [address] [id number] [place] [address] 89623- 6792 Mar, Type 2 diabetes mellitus with hyperglycemia E11.65 ; Hyperlipidemia E78.5 ; GERD (gastroesophageal reflux disease) K21.9 ; Hx of renal calculi Z87.442 ; Essential hypertension I10 ; Encounter for immunization Z23 and Arm numbness R20.[address] [address]- 5162 Mar, Type 2 diabetes mellitus with hyperglycemia E11.65 ; Hyperlipidemia E78.5 and Essential hypertension I10 [place] [address] 82740- 0836 January, Type 2 diabetes mellitus with hyperglycemia E11.65 ; GERD ( gastroesophageal reflux disease) K21.9 ; Hyperlipidemia E78.5 ; Hx of renal calculi Z87.442 ; Allergic rhinitis J30.9 and Essential hypertension I10 [facility] [address] 41241- 7415 January, Type 2 diabetes mellitus with hyperglycemia E11.65 [place] [address] 09745- 8912 January, [place] [address] 39173- 1437 Oct, Neuropathic pain M79.2 and Onychomycosis B35.1 [place] [address] 52350- 1667 Aug, [place] [address] 78809- 3487 Aug, Type 2 diabetes mellitus with hyperglycemia E11.65 ; GERD ( gastroesophageal reflux disease) K21.9 ; Hx of renal calculi Z87.442 ; Essential hypertension I10 ; Chronic cough R05 ; Chest pain, unspecified type R07.9 ; Dry skin dermatitis L85.3 ; Allergic rhinitis J30.9 ; Hyperlipidemia E78.5 and Encounter for immunization Z23 [facility] [address] 91751- 2790 Aug, [facility] [address] 04506- 8627 Jun, [place] [address] 06251- 2798 Jun, [facility] [address] 64212 -[address] Jun, [facility] [address] 73848- 5952 Jun, [facility] [address] 77792 -8548 Jun, Rib pain on right side R07.81 [facility] [id number] [place] [address] 17803- 4497 May, Chest pain, unspecified type R07.9 [facility] [id number] [place] [address] 37628- 7320 May, [facility] [id number] [place] [address] 67247 -1676 Mar, Chest pain, unspecified type R07.9 [facility] [id number] [place] [address] 25208- 7109 Mar, [facility] [id number] [place] [address] 57919- 6327 Mar, Type 2 diabetes mellitus with hyperglycemia E11.65 ; GERD ( gastroesophageal reflux disease) K21.9 and Hx of renal calculi Z87.442 [facility] [id number] [place] [address] 23080- 9978 Dec, [facility] [id number] [place] [address] 32187- 4197 Nov, [facility] [id number] [place] [address] 09054- 6107 Nov, Chronic cough R05 [facility] [id number] [place] [address] 10579- 8498 Nov, [facility] [id number] [place] [address] 01913- 4069 Nov, [facility] [id number] [place] [address] 58772- 9106 Nov, [facility] [id number] [place] [address] 83950- 3302 Nov, [facility] [id number] [place] [address] 11575- 1755 Nov, Type 2 diabetes mellitus with hyperglycemia E11.65 ; Elevated TSH R94.6 ; Hyperlipidemia E78.5 ; Microalbuminuria R80.9 ; Tinea pedis B35.3 ; Chronic cough R05 ; GERD (gastroesophageal reflux disease) K21.9 ; Allergic rhinitis J30.9 and Hx of renal calculi Z87.442 [facility] [id number] [place] [address] 48681- 5460 Aug, [facility] [address] 957540- 6186 Aug, Hx of renal calculi Z87.442 [place] [address] 61653- 1088 Aug, [place] [address] [id number] [place] [address] 271430- 0094 Aug, [place] [address] [id number] [place] [address] 05440- 2853 Aug, [place] [address] 42112- 5675 Aug, Type 2 diabetes mellitus without complication E11.9 ; Elevated TSH R94.6 and Hyperlipidemia E78.5 [place] [address] [id number] [place] [address] 61676- 7477 Jul, [place] [address] [id number] [place] [address] 45368- 1441 Jun, [place] [address] [id number] [place] [address] 44019- 6827 Mar, Abnormal thyroid blood test 794.5 [place] [address] [id number] [place] [address] 89248- 0018 Mar, [place] [address] 62074- 5541 Mar, Abnormal thyroid blood test 794.5 [place] [address] [address] [id number] [place] [address] 25474- 9102 Mar, Abnormal thyroid blood test 794.5 [facility] [address] [address]- 4833 Mar, [facility] [address] [address]- 4107 Mar, Diabetes type 2, uncontrolled 250.02 and Fungal infection of foot 110.4 [facility] [address] [address]- 8287 Mar, Left flank pain 789.09 [facility] [address] [address]- 7318 January, Left flank pain 789.09 [facility] [id number] [place] [address] 08926- 6370 Dec, [facility] [address] [address]- 3847 Dec, [facility] [address] [address]- 0619 Dec, [facility] [address] [address]- 6667 Nov, [facility] [address] [address]- 3651 Nov, [facility] [address] [address]- 6866 Nov, [facility] [address] [address]- 9098 Nov, [facility] [id number] [address]- 7836 Oct, [facility] [address] [address] 6829 Oct, [facility] [address] [address]- 3168 Oct, [facility] [id number] [place] [address]- 8494 15 Oct, 2014 [facility] [place] [facility] [address] [id number] [place] [address]- 9114 14 Oct, 2014 [facility] [place] [facility] [address] [id number] [place] [address]- 6646 14 Oct, 2014 [facility] [place] [facility] [address] [id number] [place] [address]- 2751 15 Aug, 2014 [facility] [place] [facility] [address] [id number] [place] [address]- 2842 15 Aug, 2014 [facility] [place] [facility] [address] [id number] [place] [address]- 4457 17 Jul, 2014 [facility] [place] [facility] [address] [id number] [place] [address]- 9902 17 Jul, 2014 [facility] [place] [facility] [address] [id number] [place] [address]- 2139 14 Jul, 2014 [facility] [place] [facility] [address] [id number] [place] [address]- 5967 14 Jul, 2014 [facility] [place] [facility] [address] [id number] [place] [address]- 0100 19 Jun, 2014 [facility] [place] [facility] [address] [id number] [place] [address]- 9209 19 Jun, 2014 [facility] [place] [facility] [address] [id number] [place] [address]- 8599 19 Jun, 2014 [facility] [place] [facility] [address] [id number] [place] [address]- 1484 19 Jun, 2014 [facility] [place] [facility] [address] [id number] [place] [address]- 2909 24 Mar, 2014 [facility] [place] [facility] [address] [id number] [place] [address]- 8954 24 Mar, 2014 [facility] [place] [facility] [address] [id number] [place] [address]- 9462 15 Mar, 2014 [facility] [place] [facility] [address] [id number] [place] [address]- 7872 15 Mar, 2013 [facility] [place] [facility] [address] [id number] [place] [address]- 5857 10 Mar, 2013 [facility] [place] [facility] [address] [id number] [place] [address]- 0408 08 Mar, 2013 [facility] [place] [facility] [address] [id number] [place] [address]- 6818 Mar, 2013 [facility] [place] [facility] [address] [id number] [place] [address]- 6774 Mar, 2013 [facility] [place] [facility] [address] [id number] [place] [address]- 5396 Mar, [facility] [place] [facility] [address] [id number] [place] [address]- 2051 Mar, [facility] [place] [facility] [address] [id number] [place] [address]- 1299 Mar, [facility] [place] [facility] [address] [id number] [place] [address]- 2916 Mar, [facility] [place] [facility] [address] [id number] [place] [address]- 4535 Mar, [facility] [place] [facility] [address] [id number] [place] [address]- 9066 Mar, [facility] [place] [facility] [address] [id number] [place] [address]- 9667 Mar, [facility] [place] [facility] [address] [id number] [place] [address]- 8797 Mar, [facility] [place] [facility] [address] [id number] [place] [address]- 2746 Mar, [facility] [place] [facility] [address] [id number] [place] [address]- 0959 Mar, [facility] [place] [facility] [address] [id number] [place] [address]- 9835 January, [facility] [address] [id number] [place] [address]- 4446 January, [facility] [place] [facility] [address] [id number] [place] [address]- 2652 January, [facility] [place] [facility] [address] [id number] [place] [address]- 2730 January, [facility] [place] [facility] [address] [id number] [place] [address]- 4632 January, [facility] [place] [facility] [address] [id number] [place] [address]- 6018 January, [facility] [place] [facility] [address] [id number] [place] [address]- 4450 January, [facility] [place] [facility] [address] [id number] [place] [address]- 0279 January, [facility] [place] [facility] [address] [id number] [place] [address]- 6258 January, [facility] [place] [facility] [address] [id number] [place] [address]- 2946 January, [facility] [place] [facility] [address] [id number] [place] [address]- 9854 Dec, [facility] [place] [facility] [address] [id number] [place] [address]- 4764 Dec, [facility] [place] [facility] [address] [id number] [place] [address]- 5696 Dec, [facility] [place] [facility] [address] [id number] [place] [address]- 6412 Dec, [facility] [place] [facility] [address] [id number] [place] [address]- 4959 Dec, [facility] [place] [facility] [address] [id number] [place] [address]- 7275 Dec, [facility] [place] [facility] [address] [id number] [place] [address]- 5435 Dec, [facility] [address] [id number] [place] [address]- 8981 Dec, [facility] [address] [id number] [place] [address]- 1587 Dec, [facility] [address] [id number] [place] [address]- 6622 Dec, [facility] [address] [id number] [place] [address]- 5497 Dec, [facility] [address] [id number] [place] [address]- 1483 Dec, [facility] [address] [id number] [place] [address]- 3582 Dec, [facility] [address] [id number] [place] [address]- 3339 Dec, [facility] [address] [id number] [place] [address]- 5012 Nov, [facility] [address] [id number] [place] [address]- 0064 Nov, [facility] [address] [id number] [place] [address]- 9178 Nov, [facility] [address] [id number] [place] [address]- 9052 Nov, [facility] [address] [id number] [place] [address]- 8267 Aug, [facility] [place] [facility] [address] [id number] [place] [address]- 8189 Aug, [facility] [address] [id number] [place] [address]- 5084 16 Aug, 2013 [facility] [address] [id number] [place] [address]- 2214 Aug, [facility] [place] [facility] [address] [id number] [place] [address]- 5465 Aug, [facility] [place] [facility] [address] [id number] [place] [address]- 7156 Aug, [facility] [place] [facility] [address] [id number] [place] [address]- 6132 Jul, [facility] [place] [facility] [address] [id number] [place] [address]- 3333 Jul, [facility] [place] [facility] [address] [id number] [place] [address]- 3051 May, [facility] [place] [facility] [address] [id number] [place] [address]- 9876 May, [facility] [place] [facility] [address] [id number] [place] [address]- 9236 Mar, [facility] [place] [facility] [address] [id number] [address]- 7529 Mar, [facility] [place] [facility] [address] [id number] [place] [address]- 8675 Mar, [facility] [place] [facility] [address] [id number] [place] [address]- 2298 Mar, [facility] [place] [facility] [address] [id number] [place] [address]- 0870 Mar, [facility] [place] [facility] [address] [id number] [place] [address]- 4131 Mar, [facility] [place] [facility] [address] [id number] [place] [address]- 9400 Mar, [facility] [place] [facility] [address] [id number] [address]- 6056 Mar, [facility] [place] [facility] [address] [id number] [place] [address]- 3654 Dec, [facility] [place] [facility] [address] [id number] [place] [address]- 0101 16 Dec, 2012 [facility] [address] [id number] [place] [address]- 6481 Dec, [facility] [place] [facility] [address] [id number] [place] [address]- 2923 Dec, [facility] [address] [facility] [id number] [place] [address]- 0418 Dec, [facility] [address] [id number] [place] [address]- 8532 Nov, [facility] [address] [id number] [place] [address]- 4550 Nov, [facility] [address] [id number] [place] [address]- 3606 Oct, [facility] [address] [facility] [id number] [place] [address]- 1421 Oct, [facility] [address] [id number] [place] [address]- 3669 Oct, [facility] [address] [facility] [id number] [place] [address]- 5839 Oct, [facility] [address] [facility] [id number] [place] [address]- 7676 Aug, [facility] [address] [id number] [place] [address]- 0532 Aug, [facility] [place] [facility] [address] [id number] [place] [address]- 5103 Aug, [facility] [place] [facility] [address] [id number] [place] [address]- 1109 Aug, [facility] [place] [facility] [address] [facility] [id number] [place] [address]- 6576 Aug, [facility] [place] [facility] [address] [facility] [id number] [place] [address]- 5926 Aug, [facility] [place] [facility] [address] [id number] [place] [address]- 0066 15 Jul, 2012 [facility] [place] [facility] [address] [id number] [place] [address]- 2256 15 Jul, 2012 [facility] [place] [facility] [address] [id number] [place] [address]- 2576 20 Jun, 2012 [facility] [place] [facility] [address] [id number] [place] [address]- 1816 20 Jun, 2012 [facility] [place] [facility] [address] [id number] [place] [address]- 4738 May, [facility] [place] [facility] [address] [id number] [place] [address]- 4566 May, [facility] [place] [facility] [address] [id number] [place] [address]- 7789 May, [facility] [place] [facility] [address] [id number] [place] [address]- 7889 Mar, [facility] [place] [facility] [address] [id number] [place] [address]- 3112 Mar, [facility] [place] [facility] [address] [id number] [place] [address]- 8689 Mar, [facility] [place] [facility] [address] [id number] [place] [address]- 2302 Mar, [facility] [place] [facility] [address] [id number] [place] [address]- 6729 Mar, [facility] [place] [facility] [address] [id number] [place] [address]- 7998 Mar, [facility] [place] [facility] [address] [id number] [place] [address]- 8896 Mar, [facility] [place] [facility] [address] [id number] [place] [address]- 3413 January, [facility] [place] [facility] [address] [id number] [place] [address]- 8951 January, [facility] [address] [id number] [place] [address]- 5553 January, [facility] [place] [facility] [address] [id number] [place] [address]- 1996 January, [facility] [place] [facility] [address] [id number] [place] [address]- 0066 January, [facility] [place] [facility] [address] [id number] [place] [address] Nov, [facility] [place] [facility] [address] [id number] [place] [address] Nov, [facility] [place] [facility] [address] [id number] [place] [address] Nov, [facility] [place] [facility] [address] [id number] [place] [address] Nov, [facility] [place] [facility] [address] [id number] [place] [address] Nov, [facility] [place] [facility] [address] [id number] [place] [address] Oct, [facility] [place] [facility] [address] [id number] [place] [address] Oct, [facility] [place] [facility] [address] [id number] [place] [address] Aug, [facility] [place] [facility] [address] [id number] [place] [address] Aug, [facility] [place] [facility] [address] [id number] [place] [address] Aug, [facility] [place] [facility] [address] [id number] [place] [address] Aug, [facility] [place] [facility] [address] [id number] [place] [address] Jul, [facility] [place] [facility] [address] [facility] [id number] [place] [address] Jul, [facility] [address] [facility] [id number] [place] [address] Mar, IMMUNIZATIONS No Known Immunizations SOCIAL HISTORY Never Assessed REASON FOR VISIT Diabetic supplies PLAN OF CARE VITAL SIGNS MEDICATIONS Unknown Medications RESULTS No Results PROCEDURES No Known procedures INSTRUCTIONS MEDICATIONS ADMINISTERED No Known Medications MEDICAL (GENERAL) HISTORY Type Description Date Medical History diabetes mellitus Medical History hypertension Medical History kidney stones Medical History acid reflux Medical History chronic pain Medical History Dyslipidemia
--- OUTSIDE RECORDS SUMMARY | 2019-01-14 11:07 | XMS REPORT ---
Author Author MEME SHAKEEL [facility] Address [address] [place] [address] Care Team Providers Care Hose Seamer Name Role Phone HAIDER VALENTINEY Unavailable PROBLEMS Type Condition ICD9-CM Code KIF69-DX Code Onset Dates Condition Status SNOMED Code Problem Hyperlipidemia E78.5 Active 89938740 Problem GERD (gastroesophageal reflux disease) K21.9 Active 775510381 Problem Allergic rhinitis J30.9 Active 48606261 Problem Other elevated white blood cell count D72.828 Active 848018579 Problem Onychomycosis B35.1 Active 644455116 Problem Type 2 diabetes mellitus with hyperglycemia E11.65 Active 830022415 Problem Hx of renal calculi Z87.442 Active 582792985 Problem Essential hypertension I10 Active 08097918 Problem Microalbuminuria R80.9 Active 496464121 ALLERGIES No Information ENCOUNTERS Encounter Location Date Diagnosis [place] [id number] [place] [address] 23493- 1255 Mar, [place] [id number] [place] [address] 37381- 3289 Mar, Type 2 diabetes mellitus with hyperglycemia E11.65 ; GERD ( gastroesophageal reflux disease) K21.9 ; Right hip pain M25.551 ; Hyperlipidemia E78.5 and Essential hypertension I10 [facility] [id number] [place] [address] 68788- 3364 Mar, [place] [id number] [place] [address] 27478- 4257 January, 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 [facility] [id number] [place] [address] 27279- 2181 January, [place] [address] [place] [address]- 3865 Nov, [place] [id number] [place] [address] 26225- 4417 Nov, Other elevated white blood cell count D72.828 [place] [id number] [place] [address] 94548- 7884 Nov, Type 2 diabetes mellitus with hyperglycemia E11.65 ; Hx of renal calculi Z87.442 ; Callus L84 ; Hyperlipidemia E78.5 and Essential hypertension I10 [place] [id number] [place] [address] 18768- 8474 Oct, Hx of renal calculi Z87.442 [place] [id number] [place] [address] 45844- 6249 Oct, Type 2 diabetes mellitus with hyperglycemia E11.65 ; Hyperlipidemia E78.5 ; GERD (gastroesophageal reflux disease) K21.9 and Essential hypertension I10 [place] [id number] [place] [address] 97848- 3867 Jul, [place] [address] 84926- 3204 May, [place] [id number] [place] [address] 58359- 6117 Mar, Type 2 diabetes mellitus with hyperglycemia E11.65 ; Hyperlipidemia E78.5 ; GERD (gastroesophageal reflux disease) K21.9 ; Hx of renal calculi Z87.442 ; Essential hypertension I10 ; Encounter for immunization Z23 and Arm numbness R20.0 [place] [id number] [place] [address] 79870- 2422 Mar, Type 2 diabetes mellitus with hyperglycemia E11.65 ; Hyperlipidemia E78.5 and Essential hypertension I10 [place] [id number] [place] [address] 69736- 1283 January, Type 2 diabetes mellitus with hyperglycemia E11.65 ; GERD ( gastroesophageal reflux disease) K21.9 ; Hyperlipidemia E78.5 ; Hx of renal calculi Z87.442 ; Allergic rhinitis J30.9 and Essential hypertension I10 [place] [address] 79764- 8333 January, Type 2 diabetes mellitus with hyperglycemia E11.65 [place] [address] 32386- 9049 January, [place] [address] 00091- 3547 Oct, Neuropathic pain M79.2 and Onychomycosis B35.1 [place] [address] 67299- 2483 Aug, [place] [address] 26466- 2012 Aug, Type 2 diabetes mellitus with hyperglycemia E11.65 ; GERD ( gastroesophageal reflux disease) K21.9 ; Hx of renal calculi Z87.442 ; Essential hypertension I10 ; Chronic cough R05 ; Chest pain, unspecified type R07.9 ; Dry skin dermatitis L85.3 ; Allergic rhinitis J30.9 ; Hyperlipidemia E78.5 and Encounter for immunization Z23 [place] [address] 70286- 8692 Aug, [place] [address] 97907- 9020 Jun, [place] [address] 55769- 1184 Jun, [facility] [address] 86361 -1545 Jun, [place] [address] 49572- 5376 Jun, [facility] [address] 06811 -0681 Jun, Rib pain on right side R07.81 [place] [address] [place] [address]- 9132 May, Chest pain, unspecified type R07.9 [facility] [id number] [place] [address] 67006- 5836 May, [facility] [id number] [place] [address] 42701 -6479 Mar, Chest pain, unspecified type R07.9 [facility] [id number] [place] [address] 33000- 0874 Mar, [facility] [id number] [place] [address] 34111- 1677 Mar, Type 2 diabetes mellitus with hyperglycemia E11.65 ; GERD ( gastroesophageal reflux disease) K21.9 and Hx of renal calculi Z87.442 [facility] [id number] [place] [address] 95129- 5470 Dec, [facility] [id number] [place] [address] 87820- 6277 Nov, [facility] [id number] [place] [address] 87699- 1486 Nov, Chronic cough R05 [facility] [id number] [place] [address] 47762- 4509 Nov, [facility] [id number] [place] [address] 10405- 8546 Nov, [facility] [id number] [place] [address] 77094- 0350 Nov, [facility] [id number] [place] [address] 01701- 6428 Nov, [facility] [id number] [place] [address] 74092- 2736 Nov, Type 2 diabetes mellitus with hyperglycemia E11.65 ; Elevated TSH R94.6 ; Hyperlipidemia E78.5 ; Microalbuminuria R80.9 ; Tinea pedis B35.3 ; Chronic cough R05 ; GERD (gastroesophageal reflux disease) K21.9 ; Allergic rhinitis J30.9 and Hx of renal calculi Z87.442 [facility] [address] 15884- 1136 Aug, [facility] [id number] [place] [address] 48833- 6189 Aug, Hx of renal calculi Z87.442 [facility] [address] 19257- 6624 Aug, [facility] [id number] [place] [address] 23166- 5161 Aug, [place] [address] 97076- 3672 Aug, [place] [address] 26779- 1591 Aug, Type 2 diabetes mellitus without complication E11.9 ; Elevated TSH R94.6 and Hyperlipidemia E78.5 [place] [id number] [place] [address] 93034- 1778 Jul, [place] [address] 43468- 2873 Jun, [place] [id number] [place] [address] 08569- 1073 Mar, Abnormal thyroid blood test 794.5 [place] [id number] [place] [address] 84343- 2542 Mar, [facility] [id number] [place] [address] 67611- 9634 Mar, Abnormal thyroid blood test 794.5 [place] [id number] [place] [address] 85599- 5564 Mar, Abnormal thyroid blood test 794.5 [place] [id number] [place] [address] 47071- 4148 Mar, [facility] [address] [address]- 5513 Mar, Diabetes type 2, uncontrolled 250.02 and Fungal infection of foot 110.4 [facility] [address] [address]- 1876 Mar, Left flank pain 789.09 [facility] [address] [address]- 8234 January, Left flank pain 789.09 [facility] [address] 5637 Dec, [facility] [id number] [address]- 5389 Dec, [facility] [address] [address]- 1475 Dec, [facility] [address] [address]- 3894 Nov, [facility] [address] [address]- 8991 Nov, [facility] [address] 4462 Nov, [facility] [address] [address]- 3436 Nov, [facility] [address] [address]- 1488 Oct, [facility] [id number] 9464 Oct, [facility] [address] 1548 Oct, [facility] [address] 8186 Oct, [facility] [address] [place] [address]- 2349 14 Oct, 2014 [facility] [place] [facility] [address] [id number] [place] [address]- 8179 14 Oct, 2014 [facility] [place] [facility] [address] [id number] [place] [address]- 0009 15 Aug, 2014 [facility] [place] [facility] [address] [id number] [place] [address]- 0507 15 Aug, 2014 [facility] [place] [facility] [address] [id number] [place] [address]- 1093 17 Jul, 2014 [facility] [place] [facility] [address] [id number] [place] [address]- 6427 17 Jul, 2014 [facility] [place] [facility] [address] [id number] [place] [address]- 9970 14 Jul, 2014 [facility] [place] [facility] [address] [id number] [place] [address]- 7656 14 Jul, 2014 [facility] [place] [facility] [address] [id number] [place] [address]- 6811 19 Jun, 2014 [facility] [place] [facility] [address] [id number] [place] [address]- 8855 19 Jun, 2014 [facility] [place] [facility] [address] [id number] [place] [address]- 7515 19 Jun, 2014 [facility] [place] [facility] [address] [id number] [place] [address]- 6908 19 Jun, 2014 [facility] [place] [facility] [address] [id number] [place] [address]- 9394 24 Mar, 2014 [facility] [place] [facility] [address] [id number] [place] [address]- 2240 24 Mar, 2014 [facility] [place] [facility] [address] [id number] [place] [address]- 4330 15 Mar, 2014 [facility] [place] [facility] [address] [id number] [place] [address]- 2076 15 Mar, 2014 [facility] [place] [facility] [address] [id number] [place] [address]- 6026 Mar, 2013 [facility] [place] [facility] [address] [id number] [place] [address]- 7467 Mar, 2013 [facility] [place] [facility] [address] [id number] [place] [address]- 5232 Mar, 2013 [facility] [place] [facility] [address] [id number] [place] [address]- 0645 Mar, [facility] [place] [facility] [address] [id number] [place] [address]- 2575 Mar, [facility] [place] [facility] [address] [id number] [place] [address]- 3428 Mar, [facility] [place] [facility] [address] [id number] [place] [address]- 6756 Mar, [facility] [place] [facility] [address] [id number] [place] [address]- 5588 Mar, [facility] [place] [facility] [address] [id number] [place] [address]- 9147 Mar, [facility] [place] [facility] [address] [id number] [place] [address]- 3435 Mar, [facility] [place] [facility] [address] [id number] [place] [address]- 6141 Mar, [facility] [place] [facility] [address] [id number] [place] [address]- 2774 Mar, [facility] [place] [facility] [address] [id number] [place] [address]- 2552 Mar, [facility] [place] [facility] [address] [id number] [place] [address]- 6669 Mar, [facility] [place] [facility] [address] [id number] [place] [address]- 4220 January, [facility] [place] [facility] [address] [id number] [place] [address]- 0435 January, [facility] [address] [id number] [place] [address]- 9445 January, [facility] [place] [facility] [address] [id number] [place] [address]- 9484 January, [facility] [place] [facility] [address] [id number] [place] [address]- 5676 January, [facility] [place] [facility] [address] [id number] [place] [address]- 2607 January, [facility] [place] [facility] [address] [id number] [place] [address]- 5241 January, [facility] [place] [facility] [address] [id number] [place] [address]- 6181 January, [facility] [place] [facility] [address] [id number] [place] [address]- 5300 January, [facility] [place] [facility] [address] [id number] [place] [address]- 0723 January, [facility] [place] [facility] [address] [id number] [place] [address]- 1693 Dec, [facility] [place] [facility] [address] [id number] [place] [address]- 7140 Dec, [facility] [place] [facility] [address] [id number] [place] [address]- 1728 Dec, [facility] [place] [facility] [address] [id number] [place] [address]- 8536 Dec, [facility] [place] [facility] [address] [id number] [place] [address]- 5571 Dec, [facility] [place] [facility] [address] [id number] [place] [address]- 9217 Dec, [facility] [place] [facility] [address] [id number] [place] [address]- 9998 Dec, [facility] [place] [facility] [address] [id number] [place] [address]- 8184 Dec, [facility] [address] [id number] [place] [address]- 1294 Dec, [facility] [address] [id number] [place] [address]- 7796 Dec, [facility] [address] [id number] [place] [address]- 8089 Dec, [facility] [address] [id number] [place] [address]- 3423 Dec, [facility] [address] [id number] [place] [address]- 3711 Dec, [facility] [address] [id number] [place] [address]- 4957 Dec, [facility] [address] [id number] [place] [address]- 7470 Nov, [facility] [address] [id number] [place] [address]- 7477 Nov, [facility] [address] [id number] [place] [address]- 7403 Nov, [facility] [address] [id number] [place] [address]- 2845 Nov, [facility] [address] [id number] [place] [address]- 5104 Aug, [facility] [address] [id number] [place] [address]- 0359 Aug, [facility] [place] [facility] [address] [id number] [place] 8466 16 Aug, 2013 [facility] [place] [facility] [address] [id number] [place] [address]- 4204 16 Aug, 2013 [facility] [address] [id number] [place] [address]- 9049 Aug, [facility] [place] [facility] [address] [id number] [place] [address]- 1138 Aug, [facility] [place] [facility] [address] [id number] [place] [address]- 1748 Jul, [facility] [place] [facility] [address] [id number] [place] [address]- 7111 Jul, [facility] [place] [facility] [address] [id number] [place] [address]- 2056 May, [facility] [place] [facility] [address] [id number] [place] [address]- 7143 May, [facility] [place] [facility] [address] [id number] [place] [address]- 3291 Mar, [facility] [place] [facility] [address] [id number] [place] [address]- 2280 Mar, [facility] [place] [facility] [address] [id number] [place] [address]- 7367 Mar, [facility] [place] [facility] [address] [id number] [place] [address]- 7630 Mar, [facility] [place] [facility] [address] [id number], [place] [address]- 1071 Mar, [facility] [place] [facility] [address] [id number], [place] [address]- 1293 Mar, [facility] [place] [facility] [address] [id number], [place] [address]- 7353 Mar, [facility] [place] [facility] [address] [id number] [place] [address]- 8575 Mar, [facility] [place] [facility] [address] [id number], [place] [address]- 4046 17 Dec, 2012 [facility] [place] [facility] [address] [id number], [place] [address]- 7048 16 Dec, 2012 [facility] [place] [facility] [address] [id number], [place] [address]- 8959 Dec, [facility] [address] [id number] [place] [address]- 0872 Dec, [facility] [place] [facility] [address] [id number] [place] [address]- 2986 Dec, [facility] [address] [facility] [id number] [place] [address]- 2426 Nov, [facility] [place] [facility] [address] [id number] [place] [address]- 0515 Nov, [facility] [address] [id number] [place] [address]- 2596 Oct, [facility] [place] [facility] [address] [facility] [id number] [place] [address]- 8657 Oct, [facility] [address] [facility] [id number] [place] [address]- 5635 Oct, [facility] [address] [facility] [id number] [place] [address]- 6547 Oct, [facility] [id number] [place] [address]- 5274 Aug, [facility] [address] [facility] [id number] [place] [address]- 7518 Aug, [facility] [address] [id number], [place] [address]- 6992 Aug, [facility] [place] [facility] [address] [id number], [place] [address]- 8179 Aug, [facility] [place] [facility] [address] [id number] [place] [address]- 0568 Aug, [facility] [place] [facility] [address] [facility] [id number] [place] [address]- 4713 Aug, [facility] [place] [facility] [address] [facility] [id number] [place] [address]- 1998 Jul, [facility] [place] [facility] [address] [id number] [place] [address]- 3036 15 Jul, 2012 [facility] [place] [facility] [address] [id number] [place] [address]- 4266 Jun, [facility] [place] [facility] [address] [id number] [place] [address]- 7226 Jun, [facility] [place] [facility] [address] [id number] [place] [address]- 4686 May, [facility] [place] [facility] [address] [id number] [place] [address]- 2623 May, [facility] [place] [facility] [address] [id number] [place] [address]- 8802 May, [facility] [place] [facility] [address] [id number] [place] [address]- 7599 Mar, [facility] [place] [facility] [address] [id number] [place] [address]- 8861 Mar, [facility] [place] [facility] [address] [id number] [place] [address]- 4562 Mar, [facility] [place] [facility] [address] [id number] [place] [address]- 1162 Mar, [facility] [place] [facility] [address] [id number] [place] [address]- 0798 Mar, [facility] [place] [facility] [address] [id number] [place] [address]- 1826 Mar, [facility] [place] [facility] [address] [id number] [place] [address]- 0512 Mar, [facility] [place] [facility] [address] [id number] [place] [address]- 7536 January, [facility] [place] [facility] [address] [id number] [place] [address]- 1436 January, [facility] [place] [facility] [address] [id number] [place] [address] January, [facility] [address] [id number] [place] [address] January, [facility] [place] [facility] [address] [id number] [place] [address] January, [facility] [place] [facility] [address] [id number] [place] [address] Nov, [facility] [place] [facility] [address] [id number] [place] [address] Nov, [facility] [place] [facility] [address] [id number] [place] [address] Nov, [facility] [place] [facility] [address] [facility] [id number] [place] [address] Nov, [facility] [place] [facility] [address] [id number] [place] [address] Nov, [facility] [place] [facility] [address] [id number] [place] [address] Oct, [facility] [place] [facility] [address] [id number] [place] [address] Oct, [facility] [place] [facility] [address] [facility] [id number] [place] [address] Aug, [facility] [place] [facility] [address] [id number] [place] [address] Aug, [facility] [place] [facility] [address] [id number] [place] [address] Aug, [facility] [place] [facility] [address] [id number] [place] [address] Aug, [facility] [place] [facility] [address] [facility] [id number] [place] [address] Jul, [facility] [place] [facility] [address] [id number] [place] [address] Jul, [facility] [place] [facility] [address] [facility] [id number] [place] [address] Mar, 2011 IMMUNIZATIONS No Known Immunizations SOCIAL HISTORY Never Assessed REASON FOR VISIT Future lab order PLAN OF CARE VITAL SIGNS MEDICATIONS Unknown Medications RESULTS No Results PROCEDURES No Known procedures INSTRUCTIONS MEDICATIONS ADMINISTERED No Known Medications MEDICAL (GENERAL) HISTORY Type Description Date Medical History diabetes mellitus Medical History hypertension Medical History kidney stones Medical History acid reflux Medical History chronic pain Medical History Dyslipidemia
--- OUTSIDE RECORDS SUMMARY | 2019-01-14 11:07 | XMS REPORT ---
Author NETTA Dunlap [facility] eClinicalWorks Address Unknown Phone Unavailable Care Team Providers Care Recreation Specialist Name Role Phone NETTA RYDER CP Unavailable Allergies No Known Allergies Problems Problem Type Condition Code Onset Dates Condition Status Problem Microalbuminuria R80.9 Active Problem Hx of renal calculi Z87.442 Active Problem Type 2 diabetes mellitus with hyperglycemia E11.65 Active Problem GERD (gastroesophageal reflux disease) K21.9 Active Problem Allergic rhinitis J30.9 Active Problem Elevated TSH R94.6 Active Problem Hyperlipidemia E78.5 Active Medications No Known Medications Results No Known Results Summary Purpose eClinicalWorks Submission
--- OUTSIDE RECORDS SUMMARY | 2019-01-14 11:07 | XMS REPORT ---
Author Author ANDREW SALES [facility] eClinicalWorks Address Unknown Phone Unavailable Care Team Providers Care Engraver [employer] Name Role Phone ANDREW SALES CP Unavailable [...] GERD (gastroesophageal reflux disease) K21.9 Active Medications No Known Medications Results No Known Results Summary Purpose eClinicalWorks Submission
--- OUTSIDE RECORDS SUMMARY | 2019-01-14 11:07 | XMS REPORT ---
Author Author ANDREW SALES [facility] eClinicalWorks Address Unknown Phone Unavailable Care Team Providers Care Sales Forecast Analyst Name Role Phone ANDREW SALES CP Unavailable Allergies No Known Allergies Problems Problem Type Condition Code Onset Dates Condition Status Problem Elevated TSH R94.6 Active Problem Hyperlipidemia E78.5 Active Problem Type 2 diabetes mellitus without complication E11.9 Active Problem History of kidney stones Z87.442 Active Problem GERD (gastroesophageal reflux disease) K21.9 Active Problem Allergic rhinitis J30.9 Active Medications Medication Code System Code Instructions Start Date End Date Status Dosage Famotidine [facility] [address]-10 20 MG Orally 2 times a day 1 tablet Results No Known Results Summary Purpose eClinicalWorks Submission
--- OUTSIDE RECORDS SUMMARY | 2019-01-14 11:08 | XMS REPORT ---
Author Author SHAKEEL VALENTINE Organization [facility] Address [address] [place] [address] Care Team Providers Care Cyber Defense Incident Responder Name Role Phone SHAKEEL VALENTINE Unavailable PROBLEMS Type Condition ICD9-CM Code [id number] Code Onset Dates Condition Status SNOMED Code Problem Allergic rhinitis J30.9 Active 96718387 Problem Hyperlipidemia E78.5 Active 74900863 Problem Onychomycosis B35.1 Active 245144059 Problem Essential hypertension I10 Active 81817691 Problem Hx of renal calculi Z87.442 Active 154455150 Problem GERD (gastroesophageal reflux disease) K21.9 Active 331806299 Problem Microalbuminuria R80.9 Active 670574857 Problem Type 2 diabetes mellitus with hyperglycemia E11.65 Active [id number] ALLERGIES No Information SOCIAL HISTORY Never Assessed PLAN OF CARE VITAL SIGNS MEDICATIONS Unknown Medications RESULTS No Results PROCEDURES No Known procedures IMMUNIZATIONS No Known Immunizations MEDICAL (GENERAL) HISTORY Type Description Date Medical History diabetes mellitus Medical History hypertension Medical History kidney stones Medical History acid reflux Medical History chronic pain Medical History Dyslipidemia
--- OUTSIDE RECORDS SUMMARY | 2019-01-14 11:08 | XMS REPORT ---
Author Author SHAKEEL VALENTINE Organization [facility] Address [address] [place] [address] Care Team Providers Care Pattern Grader Name Role Phone SHAKEEL VALENTINE Unavailable PROBLEMS Type Condition ICD9-CM Code [id number] Code Onset Dates Condition Status SNOMED Code Problem Type 2 diabetes mellitus with hyperglycemia E11.65 Active 696929208 Problem Microalbuminuria R80.9 Active 357782756 Problem GERD (gastroesophageal reflux disease) K21.9 Active 692939559 Problem Allergic rhinitis J30.9 Active 85364698 Problem Hx of renal calculi Z87.442 Active 485319940 Problem Hyperlipidemia E78.5 Active 50045220 ALLERGIES Unknown Allergies SOCIAL HISTORY No smoking Hx information available PLAN OF CARE VITAL SIGNS MEDICATIONS Medication Instructions Dosage Frequency Start Date End Date Duration Status Victoza 18 MG/3ML Subcutaneous Once a day 1.8mg 24h Dec, Active RESULTS No Results PROCEDURES No Known procedures IMMUNIZATIONS No Known Immunizations
--- OUTSIDE RECORDS SUMMARY | 2019-01-14 11:08 | XMS REPORT ---
Author Author [facility] Address [address] [place] [address] Care Team Providers Care Retail Store Manager Name Role Phone HAIDER VALENTINEY Unavailable PROBLEMS Type Condition ICD9-CM Code EBZ40-RT Code Onset Dates Condition Status SNOMED Code Problem Hyperlipidemia E78.5 Active 59456224 Problem GERD (gastroesophageal reflux disease) K21.9 Active 613674270 Problem Allergic rhinitis J30.9 Active 35558457 Problem Other elevated white blood cell count D72.828 Active 343872846 Problem Onychomycosis B35.1 Active 077642876 Problem Type 2 diabetes mellitus with hyperglycemia E11.65 Active 276545468 Problem Hx of renal calculi Z87.442 Active 460275758 Problem Essential hypertension I10 Active 93034288 Problem Microalbuminuria R80.9 Active 411039821 ALLERGIES No Information ENCOUNTERS Encounter Location Date Diagnosis [facility] [id number] [place] [address] 46850- 3682 Mar, [facility] [id number] [place] [address] 99428- 8161 Mar, [facility] [id number] [place] [address] 59795- 3809 January, 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 [facility] [address] [address] 4444 January, [facility] [id number] [place] [address] 16841- 0764 Nov, [facility] [id number] [place] [address] 96403- 8315 Nov, Other elevated white blood cell count D72.828 [facility] [id number] [place] [address] 43404- 2572 Nov, Type 2 diabetes mellitus with hyperglycemia E11.65 ; Hx of renal calculi Z87.442 ; Callus L84 ; Hyperlipidemia E78.5 and Essential hypertension I10 [place] [id number] [place] [address] 62356- 2537 Oct, Hx of renal calculi Z87.442 [place] [address] 40484- 0036 Oct, Type 2 diabetes mellitus with hyperglycemia E11.65 ; Hyperlipidemia E78.5 ; GERD (gastroesophageal reflux disease) K21.9 and Essential hypertension I10 [address] [address]- [address]32 Jul, [address] 08996- 0254 May, [place] [address] 05609- 4787 Mar, Type 2 diabetes mellitus with hyperglycemia E11.65 ; Hyperlipidemia E78.5 ; GERD (gastroesophageal reflux disease) K21.9 ; Hx of renal calculi Z87.442 ; Essential hypertension I10 ; Encounter for immunization Z23 and Arm numbness R20.0 [place] [id number] [place] [address] 70197- 1578 Mar, Type 2 diabetes mellitus with hyperglycemia E11.65 ; Hyperlipidemia E78.5 and Essential hypertension I10 [place] [id number] [place] [address] 90046- 8830 January, Type 2 diabetes mellitus with hyperglycemia E11.65 ; GERD ( gastroesophageal reflux disease) K21.9 ; Hyperlipidemia E78.5 ; Hx of renal calculi Z87.442 ; Allergic rhinitis J30.9 and Essential hypertension I10 [place] [id number] [place] [address] 23674- 2893 January, Type 2 diabetes mellitus with hyperglycemia E11.65 [place] [id number] [place] [address] 72276- 6683 January, [facility] [id number] [place] [address] 91243- 9971 Oct, Neuropathic pain M79.2 and Onychomycosis B35.1 [facility] [id number] [place] [address] 51934- 1122 Aug, [facility] [address] 00639- 7997 Aug, Type 2 diabetes mellitus with hyperglycemia E11.65 ; GERD ( gastroesophageal reflux disease) K21.9 ; Hx of renal calculi Z87.442 ; Essential hypertension I10 ; Chronic cough R05 ; Chest pain, unspecified type R07.9 ; Dry skin dermatitis L85.3 ; Allergic rhinitis J30.9 ; Hyperlipidemia E78.5 and Encounter for immunization Z23 [place] [id number] [place] [address] 48547- 3220 Aug, [facility] [id number] [place] [address] 64115- 5346 Jun, [facility] [id number] [place] [address] 96378- 5367 Jun, [facility] [id number] [place] [address] 33427 -3092 Jun, [facility] [id number] [place] [address] 67122- 5408 Jun, [facility] [id number] [place] [address] 81007 -7624 Jun, Rib pain on right side R07.81 [facility] [id number] [place] [address] 79164- 1287 May, Chest pain, unspecified type R07.9 [facility] [id number] [place] [address] 45711- 7825 May, [facility] [id number] [place] [address] 18123 -9289 Mar, Chest pain, unspecified type R07.9 [facility] [address] 12043- 8227 Mar, [facility] [id number] [place] [address] 10114- 2410 Mar, Type 2 diabetes mellitus with hyperglycemia E11.65 ; GERD ( gastroesophageal reflux disease) K21.9 and Hx of renal calculi Z87.442 [facility] [id number] [place] [address] 19031- 8227 Dec, [facility] [address] 64207- 5946 Nov, [place] [address] 87057- 2227 Nov, Chronic cough R05 [place] [address] 62620- 4476 Nov, [facility] [id number] [place] [address] 29708- 1241 Nov, [facility] [id number] [place] [address] 33720- 0410 Nov, [facility] [id number] [place] [address] 88260- 8046 Nov, [facility] [id number] [place] [address] 17996- 1771 Nov, Type 2 diabetes mellitus with hyperglycemia E11.65 ; Elevated TSH R94.6 ; Hyperlipidemia E78.5 ; Microalbuminuria R80.9 ; Tinea pedis B35.3 ; Chronic cough R05 ; GERD (gastroesophageal reflux disease) K21.9 ; Allergic rhinitis J30.9 and Hx of renal calculi Z87.442 [facility] [id number] [place] [address] 25179- 7998 Aug, [facility] [id number] [place] [address] 24776- 9534 Aug, Hx of renal calculi Z87.442 [place] [id number] [place] [address] 47166- 8875 Aug, [facility] [id number] [place] [address] 00781- 7118 Aug, [place] [id number] [place] [address] 52233- 5597 Aug, [place] [id number] [place] [address] 30696- 1125 Aug, Type 2 diabetes mellitus without complication E11.9 ; Elevated TSH R94.6 and Hyperlipidemia E78.5 [place] [id number] [place] [address] 67482- 4998 Jul, [place] [id number] [place] [address] 09860- 7344 Jun, [place] [id number] [place] [address] 39393- 5410 Mar, Abnormal thyroid blood test 794.5 [place] [id number] [place] [address] 72728- 5850 Mar, [place] [id number] [place] [address] 51260- 7460 Mar, Abnormal thyroid blood test 794.5 [place] [id number] [place] [address] 31545- 6585 Mar, Abnormal thyroid blood test 794.5 [place] [id number] [place] [address] 86752- 7624 Mar, [facility] [id number] [place] [address] 80688- 0362 Mar, Diabetes type 2, uncontrolled 250.02 and Fungal infection of foot 110.4 [place] [id number] [place] [address] 11175- 2000 Mar, Left flank pain 789.09 [facility] [address] [id number]20 January, Left flank pain 789.09 [facility] [address] [id number] [place] [address]- 3060 Dec, [facility] [address] [id number], [place] [address]- 9820 Dec, [facility] [place] [facility] [address] [id number], [place] [address]- 8727 Dec, [facility] [address] [facility] [id number] [place] [address] 00273- 9035 Nov, [facility] [place] [facility] [id number], [place] [address]- 6989 Nov, [facility] [address] [address]- 2883 Nov, [facility] [id number], [place] [address]- 0271 Nov, [facility] [address], [place] [address]- 3331 Oct, [facility] [place] [facility] [address] [id number], [place] [address]- 4878 Oct, [facility] [place] [facility] [address] [facility] [id number], [place] [address]- 0169 Oct, [facility] [place] [facility] [address] [facility] [id number], [place] [address]- 0346 Oct, [facility] [place] [facility] [address] [facility] [id number], [place] [address]- [address] [place] [facility] [address] [facility] [id number], [place] [address]- 4044 Oct, [facility] [place] [facility] [address] [address]- 0857 15 Aug, 2014 [facility] [place] [facility] [address] [id number] [place] [address]- 9979 15 Aug, 2014 [facility] [place] [facility] [address] [id number] [place] 9941 17 Jul, 2014 [facility] [place] [facility] [address] [id number] [place] [address]- 4264 17 Jul, 2014 [facility] [place] [facility] [address] [id number] [place] [address]- 3928 14 Jul, 2014 [facility] [place] [facility] [address] [id number] [place] [address]- 6531 14 Jul, 2014 [facility] [place] [facility] [address] [id number] [place] [address]- 0903 19 Jun, 2014 [facility] [place] [facility] [address] [id number] [place] [address]- 3070 19 Jun, 2014 [facility] [place] [facility] [address] [id number] [place] [address]- 4092 19 Jun, 2014 [facility] [place] [facility] [address] [id number] [place] [address]- 9849 Jun, [facility] [place] [facility] [address] [id number] [place] [address]- 1334 24 Mar, 2014 [facility] [place] [facility] [address] [id number] [place] [address]- 7582 Mar, [facility] [place] [facility] [address] [id number], [place] [address]- 1629 Mar, [facility] [place] [facility] [address] [id number] [place] [address]- 8134 15 Mar, 2014 [facility] [place] [facility] [address] [id number] [place] [address]- 8242 Mar, [facility] [place] [facility] [address] [id number] [place] [address]- 4705 Mar, [facility] [place] [facility] [address] [id number] [place] [address]- 2731 Mar, [facility] [place] [facility] [address] [id number] [place] [address]- 7611 Mar, [facility] [place] [facility] [address] [id number] [place] [address]- 9902 Mar, [facility] [place] [facility] [address] [id number] [place] [address]- 1575 Mar, [facility] [place] [facility] [address] [id number] [place] [address]- 4078 Mar, [facility] [place] [facility] [address] [id number] [place] [address]- 9985 Mar, [facility] [place] [facility] [address] [id number] [place] [address]- 6489 Mar, [facility] [place] [facility] [address] [id number] [place] [address]- 8678 Mar, [facility] [place] [facility] [address] [id number] [place] [address]- 2346 Mar, [facility] [place] [facility] [address] [id number] [place] [address]- 7090 Mar, [facility] [place] [facility] [address] [id number] [place] [address]- 3047 Mar, [facility] [place] [facility] [address] [id number] [place] [address]- 5757 Mar, [facility] [place] [facility] [address] [id number] [place] [address]- 5556 January, [facility] [place] [facility] [address] [id number] [place] 7633 January, [facility] [place] [facility] [address] [id number] [place] [address]- 8857 January, [facility] [place] [facility] [address] [id number] [place] [address]- 9042 January, [facility] [address] [id number] [place] [address]- 7642 January, [facility] [place] [facility] [address] [id number] [place] [address]- 7431 January, [facility] [place] [facility] [address] [id number] [place] [address]- 1185 January, [facility] [place] [facility] [address] [id number] [place] [address]- 8107 January, [facility] [place] [facility] [address] [id number] [place] [address]- 7703 January, [facility] [place] [facility] [address] [id number] [place] [address]- 1006 January, [facility] [place] [facility] [address] [id number] [place] [address]- 7744 Dec, [facility] [place] [facility] [address] [id number] [place] [address]- 7590 Dec, [facility] [place] [facility] [address] [id number] [place] [address]- 9721 Dec, [facility] [place] [facility] [address] [id number] [place] [address]- 4863 Dec, [facility] [place] [facility] [address] [id number] [place] [address]- 2086 Dec, [facility] [place] [facility] [address] [id number], [place] [address]- 3801 Dec, [facility] [place] [facility] [address] [id number] [place] [address]- 1827 Dec, [facility] [place] [facility] [address] [id number] [place] [address]- 6348 Dec, [facility] [place] [facility] [address] [id number] [place] [address]- 3289 Dec, [facility] [place] [facility] [address] [id number] [place] [address]- 3190 Dec, [facility] [place] [facility] [address] [id number] [place] [address]- 8023 Dec, [facility] [place] [facility] [address] [id number] [place] [address]- 0055 Dec, [facility] [place] [facility] [address] [id number] [place] [address]- 1862 Dec, [facility] [place] [facility] [address] [id number] [place] [address]- 1476 Dec, [facility] [place] [facility] [address] [id number] [place] [address]- 4175 Nov, [facility] [place] [facility] [address] [id number] [place] [address]- 2120 Nov, [facility] [place] [facility] [address] [id number] [place] [address]- 1892 Nov, [facility] [place] [facility] [address] [id number] [place] [address]- 1752 Nov, [facility] [place] [facility] [address] [id number] [place] [address]- 0954 Aug, [facility] [place] [facility] [address] [facility] [id number] [place] [address]- 4423 Aug, [facility] [place] [facility] [address] [id number] [place] [address]- 8944 Aug, [facility] [place] [facility] [address] [id number] [place] [address]- 5585 Aug, [facility] [place] [facility] [address] [id number] [place] [address]- 5271 Aug, [facility] [place] [facility] [address] [id number] [place] [address]- 1457 Aug, [facility] [place] [facility] [address] [facility] [id number] [place] [address]- 1376 Jul, [facility] [place] [facility] [address] [id number] [place] [address]- 2352 Jul, [facility] [place] [facility] [address] [id number] [place] [address]- 9677 May, [facility] [place] [facility] [address] [id number] [place] [address]- 3746 May, [facility] [place] [facility] [address] [id number] [place] [address]- 1023 Mar, [facility] [place] [facility] [address] [id number] [place] [address]- 3801 Mar, [facility] [place] [facility] [address] [id number] [place] [address]- 2783 Mar, [facility] [place] [facility] [address] [id number] [place] [address]- 9215 Mar, [facility] [place] [facility] [address] [id number] [place] [address]- 9576 Mar, [facility] [place] [facility] [address] [id number] [place] [address]- 1573 Mar, [facility] [place] [facility] [address] [id number] [place] [address]- 2228 Mar, [facility] [place] [facility] [address] [id number] [place] [address]- 7015 Mar, [facility] [place] [facility] [address] [id number] [place] [address]- 5399 17 Dec, 2012 [facility] [place] [facility] [address] [id number] [place] [address]- 0259 16 Dec, 2012 [facility] [place] [facility] [address] [id number] [place] [address]- 1676 15 Dec, 2012 [facility] [place] [facility] [address] [id number] [place] [address]- 9636 04 Dec, 2012 [facility] [place] [facility] [address] [id number] [place] [address]- 5926 Dec, [facility] [place] [facility] [address] [id number] [place] [address]- 3735 Nov, [facility] [place] [facility] [address] [id number] [place] [address]- 7963 Nov, [facility] [place] [facility] [address] [id number] [place] [address]- 2499 Oct, [facility] [place] [facility] [address] [id number] [place] [address]- 3256 Oct, [facility] [place] [facility] [address] [id number] [place] [address]- 9560 Oct, [facility] [place] [facility] [address] [id number] [place] [address]- 8353 Oct, [facility] [place] [facility] [address] [id number] [place] [address]- 5396 Aug, [facility] [place] [facility] [address] [id number] [place] [address]- 4525 Aug, [facility] [place] [facility] [address] [id number] [place] [address]- 4482 Aug, [facility] [place] [facility] [address] [id number] [place] [address]- 2327 Aug, [facility] [place] [facility] [address] [id number], [place] [address]- 0250 Aug, [facility] [place] [facility] [address] [id number], [place] [address]- 6126 Aug, [facility] [place] [facility] [address] [id number] [place] [address]- 5842 Jul, [facility] [place] [facility] [address] [id number], [place] [address]- 7897 15 Jul, 2012 [facility] [place] [facility] [address] [id number] [place] [address]- 3270 20 Jun, 2012 [facility] [place] [facility] [address] [id number] [place] [address]- 9180 Jun, [facility] [place] [facility] [address] [id number] [place] [address]- 8497 May, [facility] [place] [facility] [address] [id number] [place] [address]- 9606 May, [facility] [place] [facility] [address] [id number] [place] [address]- 6363 May, [facility] [place] [facility] [address] [id number] [place] [address]- 2990 Mar, [facility] [place] [facility] [address] [id number] [place] [address]- 7117 Mar, [facility] [place] [facility] [address] [id number] [place] [address]- 7094 Mar, [facility] [place] [facility] [address] [id number] [place] [address]- 6136 Mar, [facility] [place] [facility] [address] [id number] [place] [address]- 2404 Mar, [facility] [place] [facility] [address] [id number] [place] [address]- 7685 Mar, [facility] [place] [facility] [address] [id number] [place] [address]- 1632 Mar, [facility] [place] [facility] [address] [id number] [place] [address]- 2834 January, [facility] [place] [facility] [address] [id number] [place] [address]- 9823 January, [facility] [place] [facility] [address] [id number] [place] [address]- 8810 January, [facility] [place] [facility] [address] [id number] [place] [address]- 1832 January, [facility] [place] [facility] [address] [id number] [place] [address]- 0927 January, [facility] [address] [facility] [id number], [place] [address]- 7115 Nov, [facility] [address] [address]- 9656 Nov, [facility] [address] [address] Nov, [facility] [id number] [address] Nov, [facility] [address] [facility] [id number] [address] Nov, [facility] [id number] [place] [address] Oct, [facility] [id number] [address] Oct, [facility] [id number] [address] Aug, [facility] [id number] [address] Aug, [facility] [id number] [address] Aug, [facility] [id number] [address] Aug, [facility] [id number] [address] Jul, [facility] [id number] [address] Jul, [facility] [id number] [address] Mar, IMMUNIZATIONS No Known Immunizations SOCIAL HISTORY Never Assessed REASON FOR VISIT Refill Requests PLAN OF CARE VITAL SIGNS MEDICATIONS Medication Instructions Dosage Frequency Start Date End Date Duration Status Victoza 18 MG/3ML Subcutaneous Once a day 1.8mg 24h Dec, 30 days Active MetFORMIN HCl ER 500 mg Orally 2 times a day 2 tablets 12h 30 days Active Famotidine 20 mg Orally 2 times a day 1 tablet 12h 30 days Active Lisinopril 10 mg Orally Once a day 1 tablet 24h 30 days Active Aciphex 20 mg Orally 2 times a day 1 tablet 12h Aug, 30 days Active GlipiZIDE 10 mg Orally 2 times a day 1 tablet 12h 30 days Active Atorvastatin Calcium 10 mg Orally Once a day 1 tablet 24h 30 days Active RESULTS No Results PROCEDURES No Known procedures INSTRUCTIONS MEDICATIONS ADMINISTERED No Known Medications MEDICAL (GENERAL) HISTORY Type Description Date Medical History diabetes mellitus Medical History hypertension Medical History kidney stones Medical History acid reflux Medical History chronic pain Medical History Dyslipidemia
--- OUTSIDE RECORDS SUMMARY | 2019-01-14 11:08 | XMS REPORT ---
Author ANDREW Lafleur [facility] eClinicalWorks Address Unknown Phone Unavailable Care Team Providers Care Certified Nuclear Medicine Technologist Name Role Phone ANDREW SALES CP Unavailable Allergies No Known Allergies Problems Problem Type Condition Code Onset Dates Condition Status Problem Elevated TSH R94.6 Active Problem Hyperlipidemia E78.5 Active Problem Type 2 diabetes mellitus without complication E11.9 Active Problem History of kidney stones Z87.442 Active Problem GERD (gastroesophageal reflux disease) K21.9 Active Problem Allergic rhinitis J30.9 Active Medications No Known Medications Results No Known Results Summary Purpose eClinicalWorks Submission
--- OUTSIDE RECORDS SUMMARY | 2019-01-14 11:08 | XMS REPORT ---
Author Author ERICKA ADDSION [facility] Address [address] [place] [address] Care Team Providers Care Equipment Planner Name Role Phone ERICKA ADDISON Unavailable PROBLEMS Type Condition ICD9-CM Code KPZ90-LV Code Onset Dates Condition Status SNOMED Code Problem Type 2 diabetes mellitus with hyperglycemia E11.65 Active 303151513 Problem Microalbuminuria R80.9 Active 344557947 Problem GERD (gastroesophageal reflux disease) K21.9 Active 106034198 Problem Allergic rhinitis J30.9 Active 82877595 Problem Hx of renal calculi Z87.442 Active 417912828 Problem Hyperlipidemia E78.5 Active 41106515 ALLERGIES Unknown Allergies SOCIAL HISTORY No smoking Hx information available PLAN OF CARE VITAL SIGNS MEDICATIONS Unknown Medications RESULTS No Results PROCEDURES No Known procedures IMMUNIZATIONS No Known Immunizations
--- OUTSIDE RECORDS SUMMARY | 2019-01-14 11:08 | XMS REPORT ---
Author Author KATHIE CONRAD [facility] Address [address] [place] [address] Care Team Providers Care Assembler [employer] Name Role Phone KATHIE CONRAD Unavailable PROBLEMS Type Condition ICD9-CM Code [id number] Code Onset Dates Condition Status SNOMED Code Problem GERD (gastroesophageal reflux disease) K21.9 Active 594022220 Problem Allergic rhinitis J30.9 Active 44237176 Problem Onychomycosis B35.1 Active 967628866 Problem Essential hypertension I10 Active 25873357 Problem Hx of renal calculi Z87.442 Active 787152825 Problem Hyperlipidemia E78.5 Active 56555329 Problem Type 2 diabetes mellitus with hyperglycemia E11.65 Active 009041959 Problem Microalbuminuria R80.9 Active 977001986 ALLERGIES Substance Reaction Event Type Date Status Metformin Diarrhea Drug Allergy Oct, Active SOCIAL HISTORY No smoking Hx information available PLAN OF CARE Activity Details Follow Up prn Reason: VITAL SIGNS Height 71 in 2016-10-02 Weight 202.4 lbs 2016-10-02 Temperature 98.3 degrees Fahrenheit 2016-10-02 Heart Rate 92 bpm 2016-10-02 Respiratory Rate 20 2016-10-02 BMI 28.23 kg/m2 2016-10-02 Blood pressure systolic 128 mmHg 2016-10-02 Blood pressure diastolic 70 mmHg 2016-10-02 MEDICATIONS Medication Instructions Dosage Frequency Start Date End Date Duration Status Famotidine 20 mg Orally 2 times a day 1 tablet 12h 90 days Active Invokana 100 MG Orally Once a day 1 tablet 24h January, 90 days Active MetFORMIN HCl ER 500 MG Orally twice a day 2 tablets 12h 90 days Active Victoza 18 MG/3ML Subcutaneous Once a day 1.8mg 24h Dec, January, 90 days Active Oxycodone HCl 5 mg Orally every 6 hrs as needed 1 tablet January, Active Atorvastatin Calcium 10 mg Orally Once a day 1 tablet 24h 90 days Active Aspirin 81 mg 1 tablet by Oral route 1 time per day Nov, Active Loratadine 10 MG Orally Once a day 1 tablet 24h January, 90 days Active Lisinopril 10 MG Orally Once a day 1 Tablet 24h 90 days Active Gabapentin 300 MG Orally Three times a day 1 capsule 8h Oct, 30 day(s) Active GlipiZIDE 10 mg Orally 2 times a day 1 tablet 12h 90 days Active Flomax 0.4 MG Orally Once a day 1 capsule 30 minutes after the same meal each day 24h Jul, January, 90 days Active Aciphex 20 mg Orally 2 times a day 1 tablet 12h Aug, 30 day(s) Active RESULTS No Results PROCEDURES Procedure Date Ordered Related Diagnosis Body Site Office Visit, Est Pt., Level 3 Oct 02, 2016 IMMUNIZATIONS No Known Immunizations
--- OUTSIDE RECORDS SUMMARY | 2019-01-14 11:08 | XMS REPORT ---
Author Author SHAKEEL VALENTINE Organization [facility] Address [address] [place] [address] Care Team Providers Care Robot Programmer Name Role Phone SHAKEEL VALENTINE Unavailable PROBLEMS Type Condition ICD9-CM Code [id number] Code Onset Dates Condition Status SNOMED Code Problem Type 2 diabetes mellitus with hyperglycemia E11.65 Active 905269236 Problem Microalbuminuria R80.9 Active 545011998 Problem GERD (gastroesophageal reflux disease) K21.9 Active 037295041 Problem Allergic rhinitis J30.9 Active 15167845 Problem Hx of renal calculi Z87.442 Active 918356113 Problem Hyperlipidemia E78.5 Active 69953008 ALLERGIES Unknown Allergies SOCIAL HISTORY No smoking Hx information available PLAN OF CARE VITAL SIGNS MEDICATIONS Medication Instructions Dosage Frequency Start Date End Date Duration Status Victoza 18 MG/3ML Subcutaneous Once a day 1.8mg 24h Dec, Active RESULTS No Results PROCEDURES No Known procedures IMMUNIZATIONS No Known Immunizations
--- OUTSIDE RECORDS SUMMARY | 2019-01-14 11:09 | XMS REPORT ---
Author Author ERICKA ADDISON Organization [facility] Address [address] [place] [address] Care Team Providers Care Director Of Strategic Communications Name Role Phone ERICKA ADDISON Unavailable PROBLEMS Type Condition ICD9-CM Code [id number] Code Onset Dates Condition Status SNOMED Code Assessment Rib pain on right side R07.81 Jun, Active 115535998 Problem Type 2 diabetes mellitus with hyperglycemia E11.65 Active 085806805 Problem Microalbuminuria R80.9 Active 044561967 Problem GERD (gastroesophageal reflux disease) K21.9 Active 188156183 Problem Allergic rhinitis J30.9 Active 48240138 Problem Hx of renal calculi Z87.442 Active 849451772 Problem Hyperlipidemia E78.5 Active 97605321 ALLERGIES Substance Reaction Event Type Date Status Metformin Diarrhea Drug Allergy Jun, Active SOCIAL HISTORY No smoking Hx information available PLAN OF CARE VITAL SIGNS Height 71 in 2016-06-06 Weight 208.6 lbs 2016-06-06 Heart Rate 72 bpm 2016-06-06 Respiratory Rate 22 2016-06-06 BMI 29.09 kg/m2 2016-06-06 Blood pressure systolic 120 mmHg 2016-06-06 Blood pressure diastolic 72 mmHg 2016-06-06 MEDICATIONS Medication Instructions Dosage Frequency Start Date End Date Duration Status Flomax 0.4 MG Orally Once a day 1 capsule 30 minutes after the same meal each day 24h Jul, Active MetFORMIN HCl ER 500 MG Orally twice a day 2 tablets 12h 30 Active Aspirin 81 mg 1 tablet by Oral route 1 time per day Nov, Active Lisinopril 2.5 MG Orally Once a day 1 Tablet 24h 30 Active Loratadine 10 mg take 1 tablet by Oral route 1 time per day take at hs Jul, Active GlipiZIDE 10 MG Orally 2 times a day 1 tablet 12h 30 Active Esomeprazole Magnesium 20 mg Orally Once a day 1 capsule 24h Mar, 30 day(s) Active Atorvastatin Calcium 10 MG Orally Once a day 1 tablet 24h 30 Active RESULTS Name Result Date Reference Range CT Scan : Chest w/ Contrast 2016-06-07 Xray : Rib Series, Right (IN HOUSE) 2016-06-06 PROCEDURES Procedure Date Ordered Related Diagnosis Body Site X-RAY EXAM OF RIBS Jun 06, 2016 Office Visit, Est Pt., Level 3 Jun 06, 2016 IMMUNIZATIONS No Known Immunizations
--- OUTSIDE RECORDS SUMMARY | 2019-01-14 11:09 | XMS REPORT ---
Author ANDREW Lafleur [facility] eClinicalWorks Address Unknown Phone Unavailable Care Team Providers Care Program Therapist Name Role Phone ANDREW SALES CP Unavailable Allergies No Known Allergies Problems Problem Type Condition Code Onset Dates Condition Status Assessment Hx of renal calculi Z87.442 Active Problem Type 2 diabetes mellitus without complication E11.9 Active Problem Elevated TSH R94.6 Active Problem Hx of renal calculi Z87.442 Active Problem Allergic rhinitis J30.9 Active Problem History of kidney stones Z87.442 Active Problem Hyperlipidemia E78.5 Active Problem GERD (gastroesophageal reflux disease) K21.9 Active Medications Medication Code System Code Instructions Start Date End Date Status Dosage Flomax [facility] [address]-51 0.4 MG Orally Once a day Jul 14, 2014 February 28, 2016 1 capsule 30 minutes after the same meal each day Results No Known Results Summary Purpose eClinicalWorks Submission
--- OUTSIDE RECORDS SUMMARY | 2019-01-14 11:09 | XMS REPORT ---
Author ANDREW Lafleur [facility] eClinicalWorks Address Unknown Phone Unavailable Care Team Providers Care Credentialing Specialist Name Role Phone ANDREW SALES CP Unavailable Allergies, Adverse Reactions, Alerts Substance Reaction Event Type Metformin Diarrhea Drug Allergy Problems Problem Type Condition Code Onset Dates Condition Status Assessment Elevated TSH R94.6 Active Assessment Hyperlipidemia E78.5 Active Problem Elevated TSH R94.6 Active Problem Hyperlipidemia E78.5 Active Problem Type 2 diabetes mellitus without complication E11.9 Active Problem History of kidney stones Z87.442 Active Assessment Type 2 diabetes mellitus without complication E11.9 Active Problem GERD (gastroesophageal reflux disease) K21.9 Active Problem Allergic rhinitis J30.9 Active Medications Medication Code System Code Instructions Start Date End Date Status Dosage Nystatin [facility] 33100705010 [id number] UNIT/GM Externally Twice a day 1 application to affected area Lisinopril [facility] [address]-05 2.5 MG Jul 14, 2014 1 Tablet by Oral route 1 time per day Victoza [facility] [address]-64 18 MG/3ML Subcutaneous Once a day January 26, 2015 Jun 02, [address] [facility] 47858932836 10 MG TAKE ONE TABLET BY MOUTH AT BEDTIME Oxycodone HCl [facility] [address]-38 5 MG Orally every 6 hrs February 17, [address] [facility] [address]-44 20 MG Orally 2 times a day 1 tablet at bedtime Flonase [facility] [address]-99 50 MCG/ACT Nasally twice a day 1 spray in each nostril Aspirin [facility] [address]-62 81 mg Nov 14, 2011 1 tablet by Oral route 1 time per day Flomax [facility] [address]-66 0.4 MG Orally Once a day Jul 14, 2014 1 capsule 30 minutes after the same meal each day Fish Oil [facility] [address]-67 1000 MG Orally 2 times a day 2 capsule [place] [facility] [address]-19 31G X 6 MM January 26, 2015 use as directed MetFORMIN HCl ER [facility] [address]-56 500 MG Orally twice a day [address] [facility] [address]-82 200 MG Orally every 6 hrs 1 tablet as needed Loratadine [facility] [address]-44 10 mg Jul 14, 2014 take 1 tablet by Oral route 1 time per day take at hs Aciphex [facility] [address]-84 20 mg Jul 14, 2014 1 tablet by Oral route 2 times per day GlipiZIDE [facility] [address]-10 10 MG Orally 2 times a day. MUST HAVE APPT PRIOR TO REFILL Oct 30, 2014 1 tablet Procedures Procedure Coding System Code Date MICROALBUMIN, SEMIQUANT CPT-4 97334 Aug 04, 2015 Office Visit, Est Pt., Level 3 CPT-4 21070 Aug 04, 2015 GLYCATED HEMOGLOBIN TEST CPT-4 09348 Aug 04, 2015 Vital Signs Date/Time: Aug 04, 2015 Temperature 97.8 F Weight 205.4 lbs Height 71 in BMI 28.64 Index Blood Pressure Diastolic 76 mmHg Blood Pressure Systolic 118 mmHg Cardiac Monitoring Heart Rate 76 bpm Results Name Result Date Reference Range Unit Abnormality Flag A1C (IN HOUSE) Summary Purpose eClinicalWorks Submission
--- OUTSIDE RECORDS SUMMARY | 2019-01-14 11:09 | XMS REPORT ---
Author Author SHAKEEL VALENTINE [facility] eClinicalWorks Address Unknown Phone Unavailable Care Team Providers Care Manager Domestic Name Role Phone SHAKEEL VALENTINE CP Unavailable Allergies No Known Allergies Problems Problem Type Condition Code Onset Dates Condition Status Problem Microalbuminuria R80.9 Active Problem Hx of renal calculi Z87.442 Active Problem Type 2 diabetes mellitus with hyperglycemia E11.65 Active Problem Allergic rhinitis J30.9 Active Problem Hyperlipidemia E78.5 Active Problem GERD (gastroesophageal reflux disease) K21.9 Active Medications No Known Medications Results No Known Results Summary Purpose eClinicalWorks Submission
--- OUTSIDE RECORDS SUMMARY | 2019-01-14 11:09 | XMS REPORT ---
Author Author SHAKEEL VALENTINE eClinicalWorks Address Unknown Phone Unavailable Care Team Providers Care Physicist Light And Optics Name Role Phone SHAKEEL VALENTINE CP Unavailable Allergies, Adverse Reactions, Alerts Substance Reaction Event Type Metformin Diarrhea Drug Allergy Problems Problem Type Condition Code Onset Dates Condition Status Problem Microalbuminuria R80.9 Active Problem Hx of renal calculi Z87.442 Active Problem Type 2 diabetes mellitus with hyperglycemia E11.65 Active Problem Allergic rhinitis J30.9 Active Assessment Chest pain, unspecified type R07.9 Active Problem Hyperlipidemia E78.5 Active Problem GERD (gastroesophageal reflux disease) K21.9 Active Medications Medication Code System Code Instructions Start Date End Date Status Dosage Fish Oil [facility] [address]-19 1000 MG Orally 2 times a day 2 capsule Flonase [facility] [address]-69 50 MCG/ACT Nasally twice a day 1 spray in each nostril Lisinopril [facility] 87828775498 2.5 MG Orally Once a day 1 Tablet Victoza [facility] [address]-79 18 MG/3ML Subcutaneous Once a day January 26, 2015 Jun 02, 2016 0.2 ml Blood Glucose Test Strip ND 0 Test Strips Breeze 2 test strips Once a day Sep 01, 2015 test blood sugar Atorvastatin Calcium [facility] 77025731276 10 MG Orally Once a day 1 tablet GlipiZIDE [facility] 75631055136 10 MG Orally 2 times a day 1 tablet Loratadine [facility] [address]-09 10 mg Jul 14, 2014 take 1 tablet by Oral route 1 time per day take at hs Esomeprazole Magnesium [facility] [address]-85 20 mg Orally Once a day April 04, 2016 1 capsule Pen [place] [facility] [address]-88 31G X 6 MM January 26, 2015 use as directed Blood Glucose Monitor ND 0 glucometer Breeze 2 and microlet lancets Once a day Sep 01, 2015 test blood sugar MetFORMIN HCl ER [facility] 83273285822 500 MG Orally twice a day 2 tablets Aspirin NDC [address]-72 81 mg Nov 14, 2011 1 tablet by Oral route 1 time per day Ibuprofen [facility] [address]-24 200 MG Orally every 6 hrs 1 tablet as needed Flomax [facility] [address]-42 0.4 MG Orally Once a day Jul 14, 2014 1 capsule 30 minutes after the same meal each day Procedures Procedure Coding System Code Date Office Visit, Est Pt., Level 3 CPT-4 49244 May 10, 2016 ELECTROCARDIOGRAM, TRACING CPT-4 36124 May 10, 2016 Vital Signs Date/Time: May 10, 2016 Cardiac Monitoring Heart Rate 76 bpm Weight 207.1 lbs Height 71 in BMI 28.88 Index Blood Pressure Diastolic 78 mmHg Blood Pressure Systolic 142 mmHg Results No Known Results Summary Purpose eClinicalWorks Submission
--- OUTSIDE RECORDS SUMMARY | 2019-01-14 11:09 | XMS REPORT ---
Author BRENDAN Mayo [facility] eClinicalWorks Address Unknown Phone Unavailable Care Team Providers Care Qa Internship Name Role Phone BRENDAN DARDEN CP Unavailable Allergies, Adverse Reactions, Alerts Substance [...] Instructions Start Date End Date Status Dosage Aspirin [facility] [address]-62 81 mg Nov 14, 2011 1 tablet by Oral route 1 time per day Fish Oil [facility] [address]-41 1000 MG Orally 2 times a day 2 capsule Famotidine [facility] 97568141807 20 MG Orally 2 times a day 1 tablet Canagliflozin [facility] [address]-93 100 MG Orally Once a day before first meal March 29, 2016 2016 1 tablet GlipiZIDE [facility] 86675478472 10 MG Orally 2 times a day 1 tablet Ibuprofen [facility] [address]-01 200 MG Orally every 6 hrs 1 tablet as needed MetFORMIN HCl ER [facility] 74122351613 500 MG Orally twice a day 2 tablets Atorvastatin Calcium [facility] 69540498517 10 MG Orally Once a day 1 tablet Victoza [facility] [address]-80 18 MG/3ML Subcutaneous Once a day January 26, 2015 Jun 02, 2016 0.2 ml Loratadine [facility] [address]-24 10 mg Jul 14, 2014 take 1 tablet by Oral route 1 time per day take at hs Flomax [facility] [address]-16 0.4 MG Orally Once a day Jul 14, 2014 1 capsule 30 minutes after the same meal each day Lisinopril [facility] 79525376255 2.5 MG Orally Once a day 1 Tablet Esomeprazole Magnesium [facility] [address]-68 20 mg Orally Once a day April 04, 2016 1 capsule Procedures Procedure Coding System Code Date Office Visit, Est Pt., Level 3 CPT-4 87716 April 28, 2016 ELECTROCARDIOGRAM, TRACING CPT-4 35387 April 28, 2016 C-REACTIVE PROTEIN, HS CPT-4 40585 April 28, 2016 Vital Signs Date/Time: April 28, 2016 Cardiac Monitoring Heart Rate 98 bpm Weight 211.6 lbs Height 71 in BMI 29.51 Index Blood Pressure Diastolic 86 mmHg Blood Pressure Systolic 148 mmHg Results No Known Results Summary Purpose eClinicalWorks Submission
--- OUTSIDE RECORDS SUMMARY | 2019-01-14 11:09 | XMS REPORT ---
Author Author MEME SHAKEEL Organization [facility] Address [address] [place] [address] Care Team Providers Care Public Services Librarian Name Role Phone AMERICO VALENTINEHANY Unavailable PROBLEMS Type Condition ICD9-CM Code [id number] Code Onset Dates Condition Status SNOMED Code Problem Allergic rhinitis J30.9 Active 68987506 Problem Hyperlipidemia E78.5 Active 40138241 Problem Onychomycosis B35.1 Active 057966328 Problem Essential hypertension I10 Active 67097577 Problem Hx of renal calculi Z87.442 Active 804185614 Problem GERD (gastroesophageal reflux disease) K21.9 Active 601774304 Problem Microalbuminuria R80.9 Active 035185985 Problem Type 2 diabetes mellitus with hyperglycemia E11.65 Active 553142235 ALLERGIES No Information SOCIAL HISTORY Never Assessed PLAN OF CARE VITAL SIGNS MEDICATIONS Medication Instructions Dosage Frequency Start Date End Date Duration Status Victoza 18 MG/3ML Subcutaneous Once a day 1.8mg 24h Dec, Active GlipiZIDE 10 mg Orally 2 times a day 1 tablet 12h 30 days Active MetFORMIN HCl ER 500 mg Orally twice a day 2 tablets 12h 30 days Active Lisinopril 10 mg Orally Once a day 1 Tablet 24h 30 days Active Famotidine 20 mg Orally 2 times a day 1 tablet 12h 30 days Active Aciphex 20 mg Orally 2 times a day 1 tablet 12h Aug, 30 day(s) Active Loratadine 10 mg Orally Once a day 1 tablet 24h 30 days Active Atorvastatin Calcium 10 mg Orally Once a day 1 tablet 24h 30 days Active Flomax 0.4 MG Orally Once a day 1 capsule 30 minutes after the same meal each day 24h 14 Jul, 2014 30 days Active Invokana 100 mg Orally Once a day 1 tablet 24h 30 days Active RESULTS No Results PROCEDURES No Known procedures IMMUNIZATIONS No Known Immunizations MEDICAL (GENERAL) HISTORY Type Description Date Medical History diabetes mellitus Medical History hypertension Medical History kidney stones Medical History acid reflux Medical History chronic pain Medical History Dyslipidemia
--- OUTSIDE RECORDS SUMMARY | 2019-01-14 11:09 | XMS REPORT ---
Author Author ANDREW SALES [facility] eClinicalWorks Address Unknown Phone Unavailable Care Team Providers Care Director Of Institutional Research Name Role Phone ANDREW SALES CP Unavailable Allergies No Known Allergies Problems Problem Type Condition Code Onset Dates Condition Status Problem Calculus of kidney 592.0 Active Problem Allergic rhinitis, cause unspecified 477.9 Active Problem Unspecified viral infection, in conditions classified elsewhere and of unspecified site 079.99 Active Problem Fungal infection of foot 110.4 Active Problem Pain in soft tissues of limb 729.5 Active Problem DTAP TEST V06.1 Active Problem Other chronic pain 338.29 Active Problem Other and unspecified hyperlipidemia 272.4 Active Problem Diabetes type 2, uncontrolled 250.02 Active Problem Counseling on substance use and abuse V65.42 Active Problem Esophageal reflux 530.81 Active Problem Corns and callosities 700 Active Problem Unspecified hereditary and idiopathic peripheral neuropathy 356.9 Active Problem Elevated blood pressure reading without diagnosis of hypertension 796.2 Active Problem Headache 784.0 Active Problem Urinary tract infection, site not specified 599.0 Active Problem Dysfunction of Eustachian tube 381.81 Active Problem Unspecified site of sacroiliac region sprain and strain 846.9 Active Problem Need for prophylactic vaccination and inoculation, Influenza V04.81 Active Problem Other specified visual disturbances 368.8 Active Problem Disturbance of skin sensation 782.0 Active Problem Personal history of other allergy, other than to medicinal agents V15.09 Active Problem Hematuria, unspecified 599.70 Active Medications Medication Code System Code Instructions Start Date End Date Status Dosage GlipiZIDE [facility] [address]-12 10 MG Orally 2 times a day. MUST HAVE APPT PRIOR TO REFILL Oct 30, 2014 1 tablet Results No Known Results Summary Purpose eClinicalWorks Submission
--- OUTSIDE RECORDS SUMMARY | 2019-01-14 11:10 | XMS REPORT ---
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 Name Role Phone SHAKEEL VALENTINE Unavailable PROBLEMS Type Condition ICD9-CM Code ISF27-NL Code Onset Dates Condition Status SNOMED Code Problem Hyperlipidemia E78.5 Active 34122350 Problem GERD (gastroesophageal reflux disease) K21.9 Active 085814715 Problem Allergic rhinitis J30.9 Active 49197933 Problem Other elevated white blood cell count D72.828 Active 106448443 Problem Onychomycosis B35.1 Active 698750958 Problem Type 2 diabetes mellitus with hyperglycemia E11.65 Active 425315206 Problem Hx of renal calculi Z87.442 Active 442132433 Problem Essential hypertension I10 Active 94375823 Problem Microalbuminuria R80.9 Active 001207772 ALLERGIES Substance Reaction Event Type Date Status Metformin Diarrhea Drug Allergy Mar, Active ENCOUNTERS Encounter Location Date Diagnosis [facility] [id number] [place] [address] 92727- 9105 Nov, Other elevated white blood cell count D72.828 [facility] [id number] [place] [address] 49696- 1603 Nov, Type 2 diabetes mellitus with hyperglycemia E11.65 ; Hx of renal calculi Z87.442 ; Callus L84 ; Hyperlipidemia E78.5 and Essential hypertension I10 [facility] [id number] [place] [address] 25374- 6859 Oct, Hx of renal calculi Z87.442 [facility] [id number] [place] [address] 89720- 7936 Oct, Type 2 diabetes mellitus with hyperglycemia E11.65 ; Hyperlipidemia E78.5 ; GERD (gastroesophageal reflux disease) K21.9 and Essential hypertension I10 [facility] [facility] [id number] [place] [address] 39037- 8250 Jul, [place] [address] [address]- 6787 May, [place] [address] 88341- 1887 Mar, Type 2 diabetes mellitus with hyperglycemia E11.65 ; Hyperlipidemia E78.5 ; GERD (gastroesophageal reflux disease) K21.9 ; Hx of renal calculi Z87.442 ; Essential hypertension I10 ; Encounter for immunization Z23 and Arm numbness R20.0 [place] [address] 60489- 6112 Mar, Type 2 diabetes mellitus with hyperglycemia E11.65 ; Hyperlipidemia E78.5 and Essential hypertension I10 [place] [address] 85189- 5023 January, Type 2 diabetes mellitus with hyperglycemia E11.65 ; GERD ( gastroesophageal reflux disease) K21.9 ; Hyperlipidemia E78.5 ; Hx of renal calculi Z87.442 ; Allergic rhinitis J30.9 and Essential hypertension I10 [facility] [id number] [place] [address] 59692- 7324 January, Type 2 diabetes mellitus with hyperglycemia E11.65 [facility] [id number] [place] [address] 78889- 0388 January, [place] [address] 45633- 6638 Oct, Neuropathic pain M79.2 and Onychomycosis B35.1 [place] [address] 34543- 0425 Aug, [place] [address] 94734- 7923 Aug, Type 2 diabetes mellitus with hyperglycemia E11.65 ; GERD ( gastroesophageal reflux disease) K21.9 ; Hx of renal calculi Z87.442 ; Essential hypertension I10 ; Chronic cough R05 ; Chest pain, unspecified type R07.9 ; Dry skin dermatitis L85.3 ; Allergic rhinitis J30.9 ; Hyperlipidemia E78.5 and Encounter for immunization Z23 [facility] [id number] [place] [address] 71642- 1548 Aug, [facility] [address] 51418- 1361 Jun, [facility] [address] 54701- 6075 Jun, [facility] [address] 31736 -2233 Jun, [facility] [address] 84526- 3629 Jun, [facility] [address] 95802 -2947 Jun, Rib pain on right side R07.81 [facility] [address] 71678- 1972 May, Chest pain, unspecified type R07.9 [facility] [address] 19145- 0757 May, [facility] [id number] [place] [address] 29153 -9490 Mar, Chest pain, unspecified type R07.9 [facility] [address] 39666- 5887 Mar, [place] [address] 79675- 4906 Mar, Type 2 diabetes mellitus with hyperglycemia E11.65 ; GERD ( gastroesophageal reflux disease) K21.9 and Hx of renal calculi Z87.442 [facility] [address] 73632- 2964 Dec, [facility] [address] [address] 7679 Nov, [facility] [id number] [place] [address] 28792- 6768 Nov, Chronic cough R05 [facility] [id number] [place] [address] 68088- 9536 Nov, [facility] [id number] [place] [address] 56142- 6800 Nov, [facility] [id number] [place] [address] 98109- 9209 Nov, [facility] [id number] [place] [address] 03747- 6494 Nov, [facility] [id number] [place] [address] 68008- 0731 Nov, Type 2 diabetes mellitus with hyperglycemia E11.65 ; Elevated TSH R94.6 ; Hyperlipidemia E78.5 ; Microalbuminuria R80.9 ; Tinea pedis B35.3 ; Chronic cough R05 ; GERD (gastroesophageal reflux disease) K21.9 ; Allergic rhinitis J30.9 and Hx of renal calculi Z87.442 [facility] [address] [address]- 3873 Aug, [facility] [id number] [place] [address] 09748- 7668 Aug, Hx of renal calculi Z87.442 [facility] [id number] [place] [address] 510891- 7002 Aug, [facility] [id number] [place] [address] 540947- 0804 Aug, [facility] [id number] [place] [address] 30098- 3390 Aug, [facility] [id number] [place] [address] 650279- 8321 Aug, Type 2 diabetes mellitus without complication E11.9 ; Elevated TSH R94.6 and Hyperlipidemia E78.5 [facility] [address] [address]- 3989 Jul, [facility] [id number] [place] [address] 56112- 2832 Jun, [facility] [id number] [place] [address] 50269- 9118 Mar, Abnormal thyroid blood test 794.5 [facility] [id number] [place] [address] 53545- 4393 Mar, [facility] [id number] [place] [address] 48991- 8154 Mar, Abnormal thyroid blood test 794.5 [facility] [id number] [place] [address] 25563- 4383 Mar, Abnormal thyroid blood test 794.5 [facility] [id number] [place] [address] 64175- 6517 Mar, [facility] [id number] [place] [address] 44981- 1299 Mar, Diabetes type 2, uncontrolled 250.02 and Fungal infection of foot 110.4 [facility] [id number] [address]- 8087 Mar, Left flank pain 789.09 [facility] [id number] [place] [address] 51864- 5496 January, Left flank pain 789.09 [facility] [id number] [place] [address] 22650- 9797 Dec, [facility] [id number] [place] [address] 40139- 0114 Dec, [facility] [address] [address]- 4904 Dec, [facility] [place] [facility] [address] [id number] [place] [address]- 0655 05 Nov, 2014 [facility] [place] [facility] [address] [id number] [place] [address]- 1934 Nov, 2014 [facility] [place] [facility] [address] [id number] [place] [address]- 3278 Nov, 2014 [facility] [place] [facility] [address] [id number] [place] [address]- 1120 Nov, [facility] [place] [facility] [address] [id number] [place] [address]- 3643 Oct, [facility] [place] [facility] [address] [id number] [place] [address]- 7850 Oct, [facility] [place] [facility] [address] [id number] [place] [address]- 6627 Oct, [facility] [place] [facility] [address] [id number] [place] [address]- 2466 Oct, [facility] [place] [facility] [address] [id number] [place] [address]- 0674 Oct, [facility] [place] [facility] [address] [facility] [id number] [place] [address]- 5596 Oct, [facility] [place] [facility] [address] [id number] [place] [address]- 4193 15 Aug, 2014 [facility] [place] [facility] [address] [id number] [place] [address]- 3752 15 Aug, 2014 [facility] [place] [facility] [address] [id number] [place] [address]- 4527 Jul, [facility] [place] [facility] [address] [id number] [place] [address]- 5501 17 Jul, 2014 [facility] [place] [facility] [address] [id number] [place] [address]- 3903 14 Jul, 2014 [facility] [place] [facility] [address] [id number] [place] [address]- 9852 Jul, [facility] [place] [facility] [address] [id number] [place] [address]- 8428 19 Jun, 2014 [facility] [place] [facility] [address] [id number] [place] [address]- 1077 19 Jun, 2014 [facility] [place] [facility] [address] [id number] [place] [address]- 3411 Jun, [facility] [place] [facility] [address] [id number] [place] [address]- 2903 Jun, [facility] [place] [facility] [address] [id number] [place] [address]- 1268 Mar, [facility] [place] [facility] [address] [id number] [place] [address]- 6594 Mar, [facility] [place] [facility] [address] [id number] [place] [address]- 3077 15 Mar, 2014 [facility] [place] [facility] [address] [id number] [place] [address]- 1804 15 Mar, 2014 [facility] [place] [facility] [address] [id number] [place] [address]- 8773 Mar, [facility] [place] [facility] [address] [id number] [place] [address]- 6235 Mar, [facility] [place] [facility] [address] [id number] [place] [address]- 5831 Mar, [facility] [place] [facility] [address] [id number] [address]- 4576 Mar, [facility] [place] [facility] [address] [id number] [place] [address]- 3917 Mar, [facility] [place] [facility] [address] [id number] [place] [address]- 3104 Mar, [facility] [place] [facility] [address] [id number] [place] [address]- 3463 Mar, [facility] [place] [facility] [address] [id number] [place] [address]- 0854 Mar, [facility] [address] [id number] [place] [address]- 2628 Mar, [facility] [place] [facility] [address] [id number] [place] [address]- 3211 Mar, [facility] [address] [id number] [place] [address]- 9974 Mar, [facility] [place] [facility] [address] [id number] [place] [address]- 8272 Mar, [facility] [place] [facility] [address] [id number] [place] [address]- 9903 Mar, [facility] [place] [facility] [address] [id number] [place] [address]- 7542 Mar, [facility] [place] [facility] [address] [id number] [place] [address]- 7490 January, [facility] [address] [id number] [place] [address]- 7134 January, [facility] [place] [facility] [address] [id number] [place] [address]- 8054 January, [facility] [address] [id number] [place] [address]- 4854 January, [facility] [place] [facility] [address] [id number] [place] [address]- 6148 January, [facility] [place] [facility] [address] [id number] [place] [address]- 9895 January, [facility] [place] [facility] [address] [id number] [place] [address]- 1579 January, [facility] [place] [facility] [address] [id number] [place] [address]- 9779 January, [facility] [place] [facility] [address] [id number] [place] [address]- 1811 January, [facility] [address] [id number] [place] [address]- 2730 January, [facility] [place] [facility] [address] [id number] [place] [address]- 0326 Dec, [facility] [place] [facility] [address] [id number] [place] [address]- 4612 Dec, [facility] [place] [facility] [address] [id number] [place] [address]- 1176 Dec, [facility] [place] [facility] [address] [id number] [place] [address]- 6986 Dec, [facility] [place] [facility] [address] [id number] [place] [address]- 4161 Dec, [facility] [place] [facility] [address] [id number] [place] [address]- 7096 Dec, [facility] [place] [facility] [address] [id number] [place] [address]- 8494 Dec, [facility] [place] [facility] [address] [id number] [place] [address]- 0414 Dec, [facility] [place] [facility] [address] [id number] [place] [address]- 1564 Dec, [facility] [place] [facility] [address] [id number] [place] [address]- 0313 Dec, [facility] [place] [facility] [address] [id number], [place] [address]- 6727 Dec, [facility] [place] [facility] [address] [id number] [place] [address]- 8939 Dec, [facility] [place] [facility] [address] [id number] [place] [address]- 9907 Dec, [facility] [place] [facility] [address] [id number] [place] [address]- 4913 Dec, [facility] [place] [facility] [address] [id number] [place] [address]- 8873 28 Nov, 2013 [facility] [place] [facility] [address] [id number] [place] [address]- 6652 Nov, [facility] [place] [facility] [address] [id number] [place] [address]- 3127 28 Nov, 2013 [facility] [place] [facility] [address] [id number] [place] [address]- 9429 Nov, [facility] [place] [facility] [address] [id number] [place] [address]- 6493 Aug, [facility] [place] [facility] [address] [id number] [place] [address]- 5756 Aug, [facility] [place] [facility] [address] [id number] [place] [address]- 8646 Aug, [facility] [place] [facility] [address] [id number] [place] [address]- 2181 Aug, [facility] [place] [facility] [address] [id number] [place] [address]- 2883 Aug, [facility] [place] [facility] [address] [id number] [place] [address]- 3701 Aug, [facility] [place] [facility] [address] [facility] [id number] [place] [address]- 0920 Jul, [facility] [place] [facility] [address] [id number] [place] [address]- 3875 Jul, [facility] [place] [facility] [address] [id number] [place] [address]- 8268 May, [facility] [place] [facility] [address] [id number] [place] [address]- 0979 May, [facility] [place] [facility] [address] [id number] [place] [address]- 6070 Mar, [facility] [place] [facility] [address] [facility] [id number] [place] [address]- 9995 Mar, [facility] [place] [facility] [address] [id number] [place] [address]- 2096 08 Mar, 2013 [facility] [address] [id number] [place] [address]- 0468 05 Mar, 2013 [facility] [place] [facility] [address] [id number] [place] [address]- 2387 Mar, [facility] [place] [facility] [address] [id number] [place] [address]- 1617 Mar, [facility] [place] [facility] [address] [id number] [place] [address]- 9211 Mar, [facility] [place] [facility] [address] [id number] [place] [address]- 0069 Mar, [facility] [place] [facility] [address] [id number] [place] [address]- 3457 17 Dec, 2012 [facility] [place] [facility] [address] [id number] [place] [address]- 0555 16 Dec, 2012 [facility] [place] [facility] [address] [id number] [place] [address]- 2324 15 Dec, 2012 [facility] [place] [facility] [address] [id number] [place] [address]- 9635 Dec, [facility] [place] [facility] [address] [id number] [place] [address]- 7472 Dec, [facility] [place] [facility] [address] [id number] [place] [address]- 1873 Nov, [facility] [place] [facility] [address] [id number] [place] [address]- 1247 Nov, [facility] [place] [facility] [address] [id number] [place] [address]- 3546 Oct, [facility] [place] [facility] [address] [id number] [place] [address]- 2461 Oct, [facility] [place] [facility] [address] [id number] [place] [address]- 7862 Oct, [facility] [place] [facility] [address] [id number] [place] [address]- 1676 Oct, [facility] [place] [facility] [address] [id number] [place] [address]- 3939 Aug, [facility] [place] [facility] [address] [id number] [place] [address]- 8666 Aug, [facility] [place] [facility] [address] [id number] [place] [address]- 0321 Aug, [facility] [place] [facility] [address] [id number] [place] [address]- 8183 Aug, [facility] [place] [facility] [address] [id number] [place] [address]- 3055 Aug, [facility] [place] [facility] [address] [id number] [place] [address]- 8716 Aug, [facility] [place] [facility] [address] [id number] [place] [address]- 2885 Jul, [facility] [place] [facility] [address] [id number] [place] [address]- 4110 Jul, [facility] [place] [facility] [address] [id number] [place] [address]- 1824 Jun, [facility] [place] [facility] [address] [id number] [place] [address]- 2001 Jun, [facility] [place] [facility] [address] [id number], [place] [address]- 3210 May, [facility] [place] [facility] [address] [id number] [place] [address]- 3284 May, [facility] [place] [facility] [address] [id number] [place] [address]- 4043 May, [facility] [place] [facility] [address] [id number] [place] [address]- 3208 Mar, [facility] [place] [facility] [address] [id number] [place] [address]- 5829 Mar, [facility] [place] [facility] [address] [id number] [place] [address]- 1191 Mar, [facility] [place] [facility] [address] [id number] [place] [address]- 3844 Mar, [facility] [place] [facility] [address] [id number] [place] [address]- 8861 Mar, [facility] [place] [facility] [address] [id number] [place] [address]- 1000 Mar, [facility] [place] [facility] [address] [id number] [place] [address]- 4120 Mar, [facility] [place] [facility] [address] [id number] [place] [address]- 3315 January, [facility] [place] [facility] [address] [id number] [place] [address]- 8373 January, [facility] [place] [facility] [address] [id number] [place] [address]- 5057 January, [facility] [place] [facility] [address] [id number] [place] [address]- 5592 January, [facility] [place] [facility] [address] [facility] [id number] [place] [address]- 8308 January, [facility] [place] [facility] [address] [id number] [place] [address]- 2383 Nov, [facility] [place] [facility] [address] [id number] [place] [address]- 7001 14 Nov, 2011 [facility] [place] [facility] [address] [id number] [place] [address] 13 Nov, 2011 [facility] [place] [facility] [address] [id number] [place] [address] 08 Nov, 2011 [facility] [place] [facility] [address] [id number] [place] [address] Nov, [facility] [address] [id number] [address] Oct, [facility] [id number] [address] Oct, [facility] [address] [id number] [address] Aug, [facility] [id number] [address] Aug, [facility] [id number] [address] Aug, [facility] [id number] [address] Aug, [facility] [id number] [address] Jul, [facility] [id number] [address] Jul, [facility] [address] [id number] [address] Mar, IMMUNIZATIONS Vaccine Route Administration Date Status PPSV23 (PNEUMOVAX) IM Intramuscular March 23, 2017 Administered SOCIAL HISTORY Never Assessed REASON FOR VISIT Diabetes--tcuppettRN, -Left great toe and leg pain x few months. PLAN OF CARE Activity Details Follow Up 3 Months Reason:DMII VITAL SIGNS Height 71 in 2017-03-23 Weight 207.1 lbs 2017-03-23 Temperature 97.3 degrees Fahrenheit 2017-03-23 Heart Rate 80 bpm 2017-03-23 Respiratory Rate 20 2017-03-23 BMI 28.88 kg/m2 2017-03-23 Blood pressure systolic 112 mmHg 2017-03-23 Blood pressure diastolic 66 mmHg 2017-03-23 MEDICATIONS Medication Instructions Dosage Frequency Start Date End Date Duration Status Atorvastatin Calcium 10 MG Orally Once a day 1 tablet 24h 30 days Active Aspirin 81 mg 1 tablet by Oral route 1 time per day Nov, Active Victoza 18 MG/3ML Subcutaneous Once a day 1.8mg 24h Dec, 30 days Active Famotidine 20 MG Orally 2 times a day 1 tablet 12h 30 days Active Invokana 100 MG Orally Once a day 1 tablet 24h 30 days Active GlipiZIDE 10 MG Orally 2 times a day 1 tablet 12h 30 days Active Loratadine 10 mg Orally Once a day 1 tablet 24h 30 days Active Flomax 0.4 MG Orally Once a day 1 capsule 24h 14 Jul, 2014 Aug, 30 days Active MetFORMIN HCl ER 500 MG Orally 2 times a day 2 tablets 12h 30 days Active Lisinopril 10 MG Orally Once a day 1 tablet 24h 30 days Active Aciphex 20 MG Orally 2 times a day 1 tablet 12h Aug, 30 days Active RESULTS No Results PROCEDURES Procedure Date Ordered Result Body Site PPSV23 (PNEUMOVAX) March 23, 2017 SINGLE IMMUNIZATION ADMIN March 23, 2017 INSTRUCTIONS MEDICATIONS ADMINISTERED No Known Medications MEDICAL (GENERAL) HISTORY Type Description Date Medical History diabetes mellitus Medical History hypertension Medical History kidney stones Medical History acid reflux Medical History chronic pain Medical History Dyslipidemia
--- OUTSIDE RECORDS SUMMARY | 2019-01-14 11:10 | XMS REPORT ---
Author Author MEME SHAKEEL [facility] Address [address] [place] [address] Care Team Providers Care Otolaryngology Nurse Name Role Phone HAIDER VALENTINEY Unavailable PROBLEMS Type Condition ICD9-CM Code TCN10-QJ Code Onset Dates Condition Status SNOMED Code Problem Hyperlipidemia E78.5 Active 41199433 Problem GERD (gastroesophageal reflux disease) K21.9 Active 319982206 Problem Allergic rhinitis J30.9 Active 49004888 Problem Other elevated white blood cell count D72.828 Active 632068287 Problem Onychomycosis B35.1 Active 652921713 Problem Type 2 diabetes mellitus with hyperglycemia E11.65 Active 630225021 Problem Hx of renal calculi Z87.442 Active 775562160 Problem Essential hypertension I10 Active 67581311 Problem Microalbuminuria R80.9 Active [id number] ALLERGIES No Information ENCOUNTERS Encounter Location Date Diagnosis [place] [address] [address]- 1194 Nov, [place] [address] [place] [id number] [place] [address] 79712- 3464 Nov, Other elevated white blood cell count D72.828 [place] [address] [id number] [place] [address] 96000- 9322 Nov, Type 2 diabetes mellitus with hyperglycemia E11.65 ; Hx of renal calculi Z87.442 ; Callus L84 ; Hyperlipidemia E78.5 and Essential hypertension I10 [place] [address] 89776- 6345 Oct, Hx of renal calculi Z87.442 [place] [address] [place] [id number] [place] [address] 31941- 5841 Oct, Type 2 diabetes mellitus with hyperglycemia E11.65 ; Hyperlipidemia E78.5 ; GERD (gastroesophageal reflux disease) K21.9 and Essential hypertension I10 [place] [address] [place] [id number] [place] [address] 19783- 2679 Jul, [place] [address] [place] [id number] [place] [address] 21991- 4639 May, [place] [address] 60372- 9348 Mar, Type 2 diabetes mellitus with hyperglycemia E11.65 ; Hyperlipidemia E78.5 ; GERD (gastroesophageal reflux disease) K21.9 ; Hx of renal calculi Z87.442 ; Essential hypertension I10 ; Encounter for immunization Z23 and Arm numbness R20.0 [place] [address] 43444- 5668 Mar, Type 2 diabetes mellitus with hyperglycemia E11.65 ; Hyperlipidemia E78.5 and Essential hypertension I10 [place] [address] 28807- 1970 January, Type 2 diabetes mellitus with hyperglycemia E11.65 ; GERD ( gastroesophageal reflux disease) K21.9 ; Hyperlipidemia E78.5 ; Hx of renal calculi Z87.442 ; Allergic rhinitis J30.9 and Essential hypertension I10 [place] [address] [place] [id number] [place] [address] 30881- 9267 January, Type 2 diabetes mellitus with hyperglycemia E11.65 [place] [address] [place] [id number] [place] [address] 91070- 9193 January, [place] [address] [place] [id number] [place] [address] 97800- 8754 Oct, Neuropathic pain M79.2 and Onychomycosis B35.1 [place] [address] [place] [id number] [place] [address] 92798- 8117 Aug, [place] [address] [place] [id number] [place] [address] 30666- 2323 Aug, Type 2 diabetes mellitus with hyperglycemia E11.65 ; GERD ( gastroesophageal reflux disease) K21.9 ; Hx of renal calculi Z87.442 ; Essential hypertension I10 ; Chronic cough R05 ; Chest pain, unspecified type R07.9 ; Dry skin dermatitis L85.3 ; Allergic rhinitis J30.9 ; Hyperlipidemia E78.5 and Encounter for immunization Z23 [facility] [place] [address] 77938- 0940 Aug, [facility] [place] [address] 76145- 9535 Jun, [place] [address] 59764- 7505 Jun, [facility] [place] [address] 67900 -7886 Jun, [place] [address] 99684- 3421 Jun, [facility] [place] [address] 77099 -9479 Jun, Rib pain on right side R07.81 [place] [address] 60448- 2468 May, Chest pain, unspecified type R07.9 [place] [address] 86089- 0160 May, [facility] [address] 35534 -1515 Mar, Chest pain, unspecified type R07.9 [place] [address] 52849- 6135 Mar, [place] [address] 63398- 9325 Mar, Type 2 diabetes mellitus with hyperglycemia E11.65 ; GERD ( gastroesophageal reflux disease) K21.9 and Hx of renal calculi Z87.442 [place] [address] [place] [address]- 4015 Dec, [facility] [place] [address] [place] [id number] [place] [address] 326841- 1238 Nov, [facility] [place] [address] [place] [id number] [place] [address] 577690- 1275 Nov, Chronic cough R05 [facility] [place] [address] [place] [id number] [place] [address] 643281- 7359 Nov, [facility] [place] [address] [place] [id number] [place] [address] 900292- 7620 Nov, [facility] [place] [address] [place] [id number] [place] [address] 955636- 8543 Nov, [facility] [place] [address] [place] [id number] [place] [address] 72071- 4031 Nov, [facility] [place] [address] [place] [id number] [place] [address] 81400- 9095 Nov, Type 2 diabetes mellitus with hyperglycemia E11.65 ; Elevated TSH R94.6 ; Hyperlipidemia E78.5 ; Microalbuminuria R80.9 ; Tinea pedis B35.3 ; Chronic cough R05 ; GERD (gastroesophageal reflux disease) K21.9 ; Allergic rhinitis J30.9 and Hx of renal calculi Z87.442 [facility] [place] [address] 7568 Aug, [facility] [place] [address] [place] [id number] [place] [address] 62097- 5130 Aug, Hx of renal calculi Z87.442 [facility] [place] [address] [place] [id number] [place] [address] 36045- 8213 Aug, [facility] [place] [address] [place] [id number] [place] [address] 79895- 4173 Aug, [facility] [place] [id number] [place] [address] 67143- 3481 Aug, [facility] [place] [address] [id number] [address]- 4362 Aug, Type 2 diabetes mellitus without complication E11.9 ; Elevated TSH R94.6 and Hyperlipidemia E78.5 [facility] [place] [address] [address]- 1263 Jul, [facility] [place] [address] [address]- 7155 Jun, [facility] [place] [address] [place] [id number] [place] [address] 12531- 0055 Mar, Abnormal thyroid blood test 794.5 [facility] [place] [address] [place] [id number] [place] [address] 59672- 7871 Mar, [facility] [place] [address] [place] [id number] [place] [address] 79109- 3440 Mar, Abnormal thyroid blood test 794.5 [facility] [place] [address] [place] [id number] [place] [address] 27717- 1904 Mar, Abnormal thyroid blood test 794.5 [facility] [place] [id number] [place] [address] 64072- 4331 Mar, [facility] [place] [id number] [place] [address] 30255- 1568 Mar, Diabetes type 2, uncontrolled 250.02 and Fungal infection of foot 110.4 [facility] [place] [address] [address]- 2290 Mar, Left flank pain 789.09 [facility] [place] [id number] [place] [address] 87495- 3000 January, Left flank pain 789.09 [facility] [place] [address] [address]- 9575 Dec, [facility] [place] [address] [place] [address]- 0808 Dec, [facility] [place] [address] [address]- 1504 Dec, [facility] [place] [facility] [address] [id number] [place] [address]- 2679 Nov, [facility] [place] [facility] [address] [id number] [place] [address]- 0348 Nov, [facility] [place] [facility] [address] [facility] [id number] [place] [address]- 7297 Nov, [facility] [place] [facility] [address] [id number] [place] [address]- 3353 Nov, [facility] [place] [facility] [address] [id number] [place] [address]- 4304 Oct, [facility] [place] [facility] [address] [facility] [id number] [place] [address]- 2941 Oct, [facility] [place] [facility] [address] [facility] [id number] [place] [address]- 4434 Oct, [facility] [place] [facility] [address] [facility] [id number] [address]- 9856 Oct, [facility] [place] [facility] [address] [facility] [id number] [place] [address]- 5819 Oct, [facility] [place] [facility] [address] [facility] [id number] [place] [address]- 1009 Oct, [facility] [place] [facility] [address] [facility] [id number] [place] [address]- 0353 Aug, [facility] [place] [facility] [address] [id number] [address]- 5742 15 Aug, 2014 [facility] [place] [facility] [address] [id number], [place] [address]- 3442 Jul, [facility] [place] [facility] [address] [facility] [id number] [place] [address]- 4421 17 Jul, 2014 [facility] [place] [facility] [address] [facility] [id number] [address]- 0405 14 Jul, 2014 [facility] [place] [facility] [address] [id number] [place] [address]- 7230 14 Jul, 2014 [facility] [place] [facility] [address] [id number] [place] [address]- 3752 Jun, [facility] [place] [facility] [address] [id number] [place] [address]- 8218 Jun, [facility] [place] [facility] [address] [id number] [place] [address]- 8638 Jun, [facility] [place] [facility] [address] [id number] [place] [address]- 7307 Jun, [facility] [place] [facility] [address] [id number] [place] [address]- 5207 Mar, [facility] [place] [facility] [address] [id number] [place] [address]- 7481 Mar, [facility] [place] [facility] [address] [id number] [place] [address]- 2233 Mar, [facility] [place] [facility] [address] [id number] [place] [address]- 0344 Mar, [facility] [place] [facility] [address] [id number] [place] [address]- 8753 Mar, [facility] [place] [facility] [address] [id number] [place] [address]- 0914 Mar, [facility] [place] [facility] [address] [id number] [place] [address]- 8827 Mar, [facility] [place] [facility] [address] [id number] [place] [address]- 3237 Mar, [facility] [place] [facility] [address] [id number] [place] [address]- 4186 Mar, [facility] [place] [facility] [address] [id number] [place] [address]- 9446 Mar, [facility] [place] [facility] [address] [id number] [place] [address]- 7766 Mar, [facility] [place] [facility] [address] [id number] [place] [address]- 6096 Mar, [facility] [place] [facility] [address] [id number] [place] [address]- 8721 Mar, [facility] [place] [facility] [address] [id number] [place] [address]- 1049 Mar, [facility] [place] [facility] [address] [id number] [place] [address]- 7272 Mar, [facility] [place] [facility] [address] [id number] [place] [address]- 7384 Mar, [facility] [place] [facility] [address] [id number] [place] [address]- 3219 Mar, [facility] [place] [facility] [address] [id number] [place] [address]- 1644 Mar, [facility] [place] [facility] [address] [id number] [place] [address]- 5856 January, [facility] [place] [facility] [address] [id number] [place] [address]- 0335 January, [facility] [place] [facility] [address] [id number] [place] [address]- 2169 January, [facility] [place] [facility] [address] [id number] [place] [address]- 9236 January, [facility] [place] [facility] [address] [id number] [place] [address]- 3461 January, [facility] [place] [facility] [address] [id number] [place] [address]- 5250 January, [facility] [place] [facility] [address] [id number] [place] [address]- 6849 January, [facility] [place] [facility] [address] [id number] [place] [address]- 7408 January, [facility] [place] [facility] [address] [id number] [place] [address]- 7192 January, [facility] [address] [id number] [place] [address]- 4293 January, [facility] [address] [id number] [place] [address]- 1287 Dec, [facility] [address] [id number] [place] [address]- 5486 Dec, [facility] [address] [id number] [place] [address]- 8399 Dec, [facility] [address] [id number] [place] [address]- 7402 Dec, [facility] [address] [id number] [place] [address]- 1840 Dec, [facility] [address] [id number] [place] [address]- 8880 Dec, [facility] [address] [id number] [place] [address]- 7815 Dec, [facility] [address] [id number] [place] [address]- 1577 Dec, [facility] [address] [id number] [place] [address]- 2028 Dec, [facility] [address] [id number] [place] [address]- 3779 Dec, [facility] [address] [id number] [place] [address]- 5987 Dec, [facility] [place] [facility] [address] [id number] [place] [address]- 6208 Dec, [facility] [place] [facility] [address] [id number] [place] [address]- 2685 Dec, [facility] [place] [facility] [address] [id number] [place] [address]- 5818 Dec, [facility] [place] [facility] [address] [id number] [place] [address]- 5865 Nov, [facility] [place] [facility] [address] [id number] [place]- 5041 Nov, [facility] [place] [facility] [address] [id number] [place] [address]- 9091 Nov, [facility] [place] [facility] [address] [id number] [place] [address]- 9801 Nov, [facility] [place] [facility] [address] [id number] [place] [address]- 1849 Aug, [facility] [place] [facility] [address] [id number] [place] [address]- 1280 Aug, [facility] [place] [facility] [address] [id number] [place] [address]- 5238 Aug, [facility] [place] [facility] [address] [id number] [place] [address]- 2692 Aug, [facility] [place] [facility] [address] [id number] [place] [address]- 6154 Aug, [facility] [place] [facility] [address] [id number] [place] [address]- 2349 Aug, [facility] [place] [facility] [address] [id number] [place] [address]- 0776 Jul, [facility] [place] [facility] [address] [id number] [address]- 2260 Jul, [facility] [place] [facility] [address] [id number] [place] [address]- 3078 May, [facility] [place] [facility] [address] [id number] [place] [address]- 4461 May, [facility] [place] [facility] [address] [id number] [place] [address]- 4693 Mar, [facility] [place] [facility] [address] [id number] [place] [address]- 0079 Mar, [facility] [address] [id number] [place] [address]- 8343 Mar, [facility] [place] [facility] [address] [id number] [place] [address]- 6867 Mar, [facility] [address] [id number] [place] [address]- 9134 Mar, [facility] [place] [facility] [address] [id number] [place] [address]- 2794 Mar, [facility] [place] [facility] [address] [id number] [place] [address]- 2771 Mar, [facility] [place] [facility] [address] [id number] [place] [address]- 6041 Mar, [facility] [address] [id number] [place] [address]- 9550 Dec, [facility] [place] [facility] [address] [id number] [place] [address]- 8789 16 Dec, 2012 [facility] [address] [id number] [place] [address]- 6781 15 Dec, 2012 [facility] [place] [facility] [address] [id number] [place] [address]- 3539 Dec, [facility] [place] [facility] [address] [id number] [place] [address]- 8700 Dec, [facility] [place] [facility] [address] [id number] [place] [address]- 6253 Nov, [facility] [place] [facility] [address] [id number] [place] [address]- 5698 Nov, [facility] [place] [facility] [address] [id number] [place] [address]- 1279 Oct, [facility] [place] [facility] [address] [id number] [place] [address]- 6550 Oct, [facility] [place] [facility] [address] [id number] [place] [address]- 7040 Oct, [facility] [place] [facility] [address] [id number] [place] [address]- 8766 Oct, [facility] [place] [facility] [address] [id number] [place] 3196 Aug, [facility] [place] [facility] [address] [id number] [place] [address]- 4676 Aug, [facility] [place] [facility] [address] [id number] [place] [address]- 6904 Aug, [facility] [place] [facility] [address] [id number] [place] [address]- 5842 Aug, [facility] [place] [facility] [address] [id number] [place] [address]- 9827 Aug, [facility] [place] [facility] [address] [id number] [place] [address]- 7029 Aug, [facility] [place] [facility] [address] [id number] [place] [address]- 4588 Jul, [facility] [place] [facility] [address] [id number] [place] [address]- 9519 Jul, [facility] [place] [facility] [address] [id number] [place] [address]- 7643 Jun, [facility] [place] [facility] [address] [id number] [place] [address]- 2738 Jun, [facility] [place] [facility] [address] [id number] [place] [address]- 2542 May, [facility] [place] [facility] [address] [id number] [place] [address]- 2056 May, [facility] [place] [facility] [address] [id number] [place] [address]- 6906 May, [facility] [place] [facility] [address] [id number] [place] [address]- 9631 Mar, [facility] [place] [facility] [address] [id number] [place] [address]- 2935 Mar, [facility] [place] [facility] [address] [id number] [place] [address]- 7194 Mar, [facility] [place] [facility] [address] [id number] [place] 8759 Mar, [facility] [place] [facility] [address] [id number] [place] [address]- 2967 Mar, [facility] [place] [facility] [address] [id number] [place] [address]- 9499 Mar, [facility] [place] [facility] [address] [id number] [place] [address]- 6159 Mar, [facility] [place] [facility] [address] [id number] [place] [address]- 6296 January, [facility] [place] [facility] [address] [id number] [place] [address]- 3358 January, [facility] [place] [facility] [address] [id number] [place] [address] January, [facility] [place] [facility] [address] [id number] [place] [address] January, [facility] [place] [facility] [address] [id number] [place] [address] January, [facility] [place] [facility] [address] [id number] [place] [address] Nov, [facility] [place] [facility] [address] [id number] [place] [address] Nov, [facility] [place] [facility] [address] [id number] [place] [address] Nov, [facility] [place] [facility] [address] [id number] [place] [address] Nov, [facility] [place] [facility] [address] [id number] [address] Nov, [facility] [place] [id number] [address] Oct, [facility] [place] [id number], [place] [address] Oct, [facility] [place] [id number], [place] [address] Aug, [facility] [place] [id number], [place] [address] Aug, [facility] [place] [id number] [place] [address] Aug, [facility] [place] [id number], [place] [address] Aug, [facility] [place] [id number], [place] [address] Jul, [facility] [place] [id number] [address] Jul, [facility] [place] [id number], [place] [address] Mar, IMMUNIZATIONS No Known Immunizations SOCIAL HISTORY Never Assessed REASON FOR VISIT eye exam PLAN OF CARE VITAL SIGNS MEDICATIONS Unknown Medications RESULTS No Results PROCEDURES No Known procedures INSTRUCTIONS MEDICATIONS ADMINISTERED No Known Medications MEDICAL (GENERAL) HISTORY Type Description Date Medical History diabetes mellitus Medical History hypertension Medical History kidney stones Medical History acid reflux Medical History chronic pain Medical History Dyslipidemia
--- OUTSIDE RECORDS SUMMARY | 2019-01-14 11:11 | XMS REPORT ---
Author Author MEME SHAKEEL [facility] Address [address] [place] [address] Care Team Providers Care Business Process Manager Name Role Phone HAIEDR VALENTINEY Unavailable PROBLEMS Type Condition ICD9-CM Code EUD58-JJ Code Onset Dates Condition Status SNOMED Code Problem Hyperlipidemia E78.5 Active 70725090 Problem GERD (gastroesophageal reflux disease) K21.9 Active 825020112 Problem Allergic rhinitis J30.9 Active 27562524 Problem Other elevated white blood cell count D72.828 Active 488315205 Problem Onychomycosis B35.1 Active 054510989 Problem Type 2 diabetes mellitus with hyperglycemia E11.65 Active 873399860 Problem Hx of renal calculi Z87.442 Active 320697411 Problem Essential hypertension I10 Active 69483285 Problem Microalbuminuria R80.9 Active 815145955 ALLERGIES No Information ENCOUNTERS Encounter Location Date Diagnosis [facility] [id number] [place] [address] 13982- 8673 Mar, [facility] [id number] [place] [address] 32071- 2700 Mar, [facility] [id number] [place] [address] 35983- 8276 January, 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 [facility] [address] [address] 7527 January, [facility] [id number] [place] [address] 67234- 7602 Nov, [facility] [id number] [place] [address] 04193- 1233 Nov, Other elevated white blood cell count D72.828 [facility] [id number] [place] [address] 57168- 7858 Nov, Type 2 diabetes mellitus with hyperglycemia E11.65 ; Hx of renal calculi Z87.442 ; Callus L84 ; Hyperlipidemia E78.5 and Essential hypertension I10 [facility] [id number] [place] [address] 98725- 7529 Oct, Hx of renal calculi Z87.442 [facility] [address] 02556- 8616 Oct, Type 2 diabetes mellitus with hyperglycemia E11.65 ; Hyperlipidemia E78.5 ; GERD (gastroesophageal reflux disease) K21.9 and Essential hypertension I10 [address] 11722- 3662 Jul, [address] 24669- 3114 May, [facility] [address] 06065- 7916 Mar, Type 2 diabetes mellitus with hyperglycemia E11.65 ; Hyperlipidemia E78.5 ; GERD (gastroesophageal reflux disease) K21.9 ; Hx of renal calculi Z87.442 ; Essential hypertension I10 ; Encounter for immunization Z23 and Arm numbness R20.0 [place] [id number] [place] [address] 38570- 6125 Mar, Type 2 diabetes mellitus with hyperglycemia E11.65 ; Hyperlipidemia E78.5 and Essential hypertension I10 [facility] [id number] [place] [address] 97566- 0402 January, Type 2 diabetes mellitus with hyperglycemia E11.65 ; GERD ( gastroesophageal reflux disease) K21.9 ; Hyperlipidemia E78.5 ; Hx of renal calculi Z87.442 ; Allergic rhinitis J30.9 and Essential hypertension I10 [facility] [id number] [place] [address] 77330- 3467 January, Type 2 diabetes mellitus with hyperglycemia E11.65 [facility] [id number] [place] [address] 59867- 6909 January, [facility] [id number] [place] [address] 28538- 9842 Oct, Neuropathic pain M79.2 and Onychomycosis B35.1 [facility] [id number] [place] [address] 98880- 8907 Aug, [facility] [address] 84840- 8267 Aug, Type 2 diabetes mellitus with hyperglycemia E11.65 ; GERD ( gastroesophageal reflux disease) K21.9 ; Hx of renal calculi Z87.442 ; Essential hypertension I10 ; Chronic cough R05 ; Chest pain, unspecified type R07.9 ; Dry skin dermatitis L85.3 ; Allergic rhinitis J30.9 ; Hyperlipidemia E78.5 and Encounter for immunization Z23 [facility] [id number] [place] [address] 17071- 3550 Aug, [facility] [id number] [place] [address] 35628- 0856 Jun, [facility] [id number] [place] [address] 45719- 0942 Jun, [facility] [id number] [place] [address] 68458 -8898 Jun, [facility] [id number] [place] [address] 10255- 8674 Jun, [facility] [id number] [place] [address] 94692 -8857 Jun, Rib pain on right side R07.81 [facility] [id number] [place] [address] 53985- 5184 May, Chest pain, unspecified type R07.9 [facility] [id number] [place] [address] 44843- 6422 May, [facility] [id number] [place] [address] 98450 -2539 Mar, Chest pain, unspecified type R07.9 [facility] [address] 93283- 6233 Mar, [facility] [id number] [place] [address] 24206- 7023 Mar, Type 2 diabetes mellitus with hyperglycemia E11.65 ; GERD ( gastroesophageal reflux disease) K21.9 and Hx of renal calculi Z87.442 [facility] [id number] [place] [address] 90389- 4904 Dec, [facility] [address] 00069- 5142 Nov, [place] [address] 00381- 6578 Nov, Chronic cough R05 [place] [address] 81701- 7280 Nov, [facility] [id number] [place] [address] 96383- 9271 Nov, [facility] [id number] [place] [address] 01430- 8494 Nov, [facility] [id number] [place] [address] 40308- 0956 Nov, [facility] [id number] [place] [address] 26967- 0742 Nov, Type 2 diabetes mellitus with hyperglycemia E11.65 ; Elevated TSH R94.6 ; Hyperlipidemia E78.5 ; Microalbuminuria R80.9 ; Tinea pedis B35.3 ; Chronic cough R05 ; GERD (gastroesophageal reflux disease) K21.9 ; Allergic rhinitis J30.9 and Hx of renal calculi Z87.442 [facility] [id number] [place] [address] 83976- 5871 Aug, [facility] [id number] [place] [address] 66164- 9275 Aug, Hx of renal calculi Z87.442 [facility] [place] [id number] [place] [address] 58479- 4881 Aug, [facility] [id number] [place] [address] 40231- 2239 Aug, [facility] [id number] [place] [address] 76274- 9389 Aug, [facility] [id number] [place] [address] 71869- 4827 Aug, Type 2 diabetes mellitus without complication E11.9 ; Elevated TSH R94.6 and Hyperlipidemia E78.5 [facility] [id number] [place] [address] 73437- 7140 Jul, [place] [id number] [place] [address] 35043- 1190 Jun, [facility] [id number] [place] [address] 86361- 6987 Mar, Abnormal thyroid blood test 794.5 [place] [id number] [place] [address] 68626- 8501 Mar, [facility] [id number] [place] [address] 55783- 7398 Mar, Abnormal thyroid blood test 794.5 [facility] [id number] [place] [address] 19966- 5297 Mar, Abnormal thyroid blood test 794.5 [place] [id number] [place] [address] 35141- 3483 Mar, [facility] [id number] [place] [address] 03930- 8074 Mar, Diabetes type 2, uncontrolled 250.02 and Fungal infection of foot 110.4 [place] [id number] [place] [address] 38734- 6602 Mar, Left flank pain 789.09 [facility] [address] [id number] 0869 January, Left flank pain 789.09 [facility] [address] [id number] [place] [address]- 8982 Dec, [facility] [address] [id number], [place] [address]- 9817 Dec, [facility] [place] [facility] [address] [id number], [place] [address]- 5227 Dec, [facility] [address] [facility] [id number] [place] [address] 19001- 5518 Nov, [facility] [place] [facility] [id number], [place] [address]- 6212 Nov, [facility] [address], [place] [address]- 0284 Nov, [facility] [id number], [place] [address]- 5463 Nov, [facility] [address], [place] [address]- 7782 Oct, [facility] [place] [facility] [id number], [place] [address]- 3243 Oct, [facility] [place] [facility] [address] [facility] [id number], [place] [address]- 8673 Oct, [facility] [place] [facility] [address] [facility] [id number], [place] [address]- 2408 Oct, [facility] [place] [facility] [address] [facility] [id number], [place] [address]- 6962 Oct, [facility] [place] [facility] [address] [facility] [id number], [place] [address]- 3652 Oct, [facility] [place] [facility] [address], [place] [address]- 4547 15 Aug, 2014 [facility] [place] [facility] [address] [id number] [place] [address]- 1147 15 Aug, 2014 [facility] [place] [facility] [address] [id number] [place] 3630 17 Jul, 2014 [facility] [place] [facility] [address] [id number] [place] [address]- 2338 17 Jul, 2014 [facility] [place] [facility] [address] [id number] [place] [address]- 2426 14 Jul, 2014 [facility] [place] [facility] [address] [id number] [place] [address]- 4139 14 Jul, 2014 [facility] [place] [facility] [address] [id number] [place] [address]- 6867 19 Jun, 2014 [facility] [place] [facility] [address] [id number] [place] [address]- 2109 19 Jun, 2014 [facility] [place] [facility] [address] [id number] [place] [address]- 8790 19 Jun, 2014 [facility] [place] [facility] [address] [id number] [place] [address]- 5498 Jun, [facility] [place] [facility] [address] [id number] [place] [address]- 1924 24 Mar, 2014 [facility] [place] [facility] [address] [id number] [place] [address]- 8069 Mar, [facility] [place] [facility] [address] [id number], [place] [address]- 7099 Mar, [facility] [place] [facility] [address] [id number] [place] [address]- 7560 15 Mar, 2014 [facility] [place] [facility] [address] [id number] [place] [address]- 1221 Mar, [facility] [place] [facility] [address] [id number] [place] [address]- 2418 Mar, [facility] [place] [facility] [address] [id number] [place] [address]- 1142 Mar, [facility] [place] [facility] [address] [id number] [place] [address]- 2798 Mar, [facility] [place] [facility] [address] [id number] [place] [address]- 0593 Mar, [facility] [place] [facility] [address] [id number] [place] [address]- 0664 Mar, [facility] [place] [facility] [address] [id number] [place] [address]- 8797 Mar, [facility] [place] [facility] [address] [id number] [place] [address]- 8633 Mar, [facility] [place] [facility] [address] [id number] [place] [address]- 0517 Mar, [facility] [place] [facility] [address] [id number] [place] [address]- 2087 Mar, [facility] [place] [facility] [address] [id number] [place] [address]- 8769 Mar, [facility] [place] [facility] [address] [id number] [place] [address]- 1684 Mar, [facility] [place] [facility] [address] [id number] [place] [address]- 6067 Mar, [facility] [place] [facility] [address] [id number] [place] [address]- 7302 Mar, [facility] [place] [facility] [address] [id number] [place] [address]- 0074 January, [facility] [place] [facility] [address] [id number] [place] 9952 January, [facility] [place] [facility] [address] [id number] [place] [address]- 8790 January, [facility] [place] [facility] [address] [id number] [place] [address]- 1325 January, [facility] [address] [id number] [place] [address]- 5978 January, [facility] [place] [facility] [address] [id number] [place] [address]- 8146 January, [facility] [place] [facility] [address] [id number] [place] [address]- 5014 January, [facility] [place] [facility] [address] [id number] [place] [address]- 9448 January, [facility] [place] [facility] [address] [id number] [place] [address]- 2182 January, [facility] [place] [facility] [address] [id number] [place] [address]- 0009 January, [facility] [place] [facility] [address] [id number] [place] [address]- 8075 Dec, [facility] [place] [facility] [address] [id number] [place] [address]- 2952 Dec, [facility] [place] [facility] [address] [id number] [place] [address]- 1072 Dec, [facility] [place] [facility] [address] [id number] [place] [address]- 4404 Dec, [facility] [place] [facility] [address] [id number] [place] [address]- 2616 Dec, [facility] [place] [facility] [address] [id number], [place] [address]- 8330 Dec, [facility] [place] [facility] [address] [id number] [place] [address]- 8613 Dec, [facility] [place] [facility] [address] [id number] [place] [address]- 1609 Dec, [facility] [place] [facility] [address] [id number] [place] [address]- 1569 Dec, [facility] [place] [facility] [address] [id number] [place] [address]- 8587 Dec, [facility] [place] [facility] [address] [id number] [place] [address]- 5730 Dec, [facility] [place] [facility] [address] [id number] [place] [address]- 6116 Dec, [facility] [place] [facility] [address] [id number] [place] [address]- 0665 Dec, [facility] [place] [facility] [address] [id number] [place] [address]- 6297 Dec, [facility] [place] [facility] [address] [id number] [place] [address]- 4712 Nov, [facility] [place] [facility] [address] [id number] [place] [address]- 2008 Nov, [facility] [place] [facility] [address] [id number] [place] [address]- 3261 Nov, [facility] [place] [facility] [address] [id number] [place] [address]- 0554 Nov, [facility] [place] [facility] [address] [id number] [place] [address]- 5987 Aug, [facility] [place] [facility] [address] [facility] [id number] [place] [address]- 5685 Aug, [facility] [place] [facility] [address] [id number] [place] [address]- 4763 Aug, [facility] [place] [facility] [address] [id number] [place] [address]- 6502 Aug, [facility] [place] [facility] [address] [id number] [place] [address]- 6478 Aug, [facility] [place] [facility] [address] [id number] [place] [address]- 9135 Aug, [facility] [place] [facility] [address] [facility] [id number] [place] [address]- 9455 Jul, [facility] [place] [facility] [address] [id number] [place] [address]- 5114 Jul, [facility] [place] [facility] [address] [id number] [place] [address]- 1323 May, [facility] [place] [facility] [address] [id number] [place] [address]- 5956 May, [facility] [place] [facility] [address] [id number] [place] [address]- 8783 Mar, [facility] [place] [facility] [address] [id number] [place] [address]- 1083 Mar, [facility] [place] [facility] [address] [id number] [place] [address]- 4375 Mar, [facility] [place] [facility] [address] [id number] [place] [address]- 2473 Mar, [facility] [place] [facility] [address] [id number] [place] [address]- 9767 Mar, [facility] [place] [facility] [address] [id number] [place] [address]- 2075 Mar, [facility] [place] [facility] [address] [id number] [place] [address]- 3060 Mar, [facility] [place] [facility] [address] [id number] [place] [address]- 6838 Mar, [facility] [place] [facility] [address] [id number] [place] [address]- 1459 17 Dec, 2012 [facility] [place] [facility] [address] [id number] [place] [address]- 4073 16 Dec, 2012 [facility] [place] [facility] [address] [id number] [place] [address]- 1020 15 Dec, 2012 [facility] [place] [facility] [address] [id number] [place] [address]- 3286 04 Dec, 2012 [facility] [place] [facility] [address] [id number] [place] [address]- 0435 Dec, [facility] [place] [facility] [address] [id number] [place] [address]- 8681 Nov, [facility] [place] [facility] [address] [id number] [place] [address]- 1448 Nov, [facility] [place] [facility] [address] [id number] [place] [address]- 0394 Oct, [facility] [place] [facility] [address] [id number] [place] [address]- 6584 Oct, [facility] [place] [facility] [address] [id number] [place] [address]- 4739 Oct, [facility] [place] [facility] [address] [id number] [place] [address]- 5388 Oct, [facility] [place] [facility] [address] [id number] [place] [address]- 4857 Aug, [facility] [place] [facility] [address] [id number] [place] [address]- 2565 Aug, [facility] [place] [facility] [address] [id number] [place] [address]- 4593 Aug, [facility] [place] [facility] [address] [id number] [place] [address]- 2041 Aug, [facility] [place] [facility] [address] [id number], [place] [address]- 9952 Aug, [facility] [place] [facility] [address] [id number], [place] [address]- 9325 Aug, [facility] [place] [facility] [address] [id number] [place] [address]- 7941 Jul, [facility] [place] [facility] [address] [id number], [place] [address]- 0468 15 Jul, 2012 [facility] [place] [facility] [address] [id number] [place] [address]- 9536 20 Jun, 2012 [facility] [place] [facility] [address] [id number] [place] [address]- 4982 Jun, [facility] [place] [facility] [address] [id number] [place] [address]- 6012 May, [facility] [place] [facility] [address] [id number] [place] [address]- 9196 May, [facility] [place] [facility] [address] [id number] [place] [address]- 8900 May, [facility] [place] [facility] [address] [id number] [place] [address]- 2721 Mar, [facility] [place] [facility] [address] [id number] [place] [address]- 0501 Mar, [facility] [place] [facility] [address] [id number] [place] [address]- 4555 Mar, [facility] [place] [facility] [address] [id number] [place] [address]- 3994 Mar, [facility] [place] [facility] [address] [id number] [place] [address]- 8670 Mar, [facility] [place] [facility] [address] [id number] [place] [address]- 8622 Mar, [facility] [place] [facility] [address] [id number] [place] [address]- 0112 Mar, [facility] [place] [facility] [address] [id number] [place] [address]- 0849 January, [facility] [place] [facility] [address] [id number] [place] [address]- 3782 January, [facility] [place] [facility] [address] [id number] [place] [address]- 6196 January, [facility] [place] [facility] [address] [id number] [place] [address]- 2020 January, [facility] [place] [facility] [address] [id number] [place] [address]- 6622 January, [facility] [address] [facility] [id number], [place] [address]- 4117 Nov, [facility] [address], [place] [address]- 1996 Nov, [facility] [address], [place] [address]- 4206 Nov, [facility] [address], [place] [address]- 3096 Nov, [facility] [address] [facility] [id number], [place] [address]- 6206 Nov, [facility] [id number] [place] [address] 11641- 3006 Oct, [facility] [address], [place] [address]- 5936 Oct, [facility] [id number] [address] Aug, [facility] [id number] [address] Aug, [facility] [id number] [address] Aug, [facility] [id number], [place] [address] Aug, [facility] [address] [id number], [place] [address] Jul, [facility] [address] [id number], [place] [address] Jul, [facility] [id number] [address] Mar, IMMUNIZATIONS No Known Immunizations SOCIAL HISTORY Never Assessed REASON FOR VISIT Refill Request PLAN OF CARE VITAL SIGNS MEDICATIONS Medication Instructions Dosage Frequency Start Date End Date Duration Status Flomax 0.4 MG Orally Once a day 1 capsule 24h Jul, 30 days Active RESULTS No Results PROCEDURES No Known procedures INSTRUCTIONS MEDICATIONS ADMINISTERED No Known Medications MEDICAL (GENERAL) HISTORY Type Description Date Medical History diabetes mellitus Medical History hypertension Medical History kidney stones Medical History acid reflux Medical History chronic pain Medical History Dyslipidemia
--- OUTSIDE RECORDS SUMMARY | 2019-01-14 11:11 | XMS REPORT ---
Author Author ANDREW SALES [facility] eClinicalWorks Address Unknown Phone Unavailable Care Team Providers Care Ortho Assistant Name Role Phone ANDREW SALES CP Unavailable Allergies No Known Allergies Problems Problem Type Condition ICD-9 Code Onset Dates Condition Status Problem Calculus [...] Instructions Start Date End Date Status Dosage Victoza [facility] [address]-42 18 MG/3ML Subcutaneous Once a day January 26, 2015 Jun 02, 2016 0.2 ml Pen [place] [facility] [address]-22 31G X 6 MM January 26, 2015 use as directed Results No Known Results Summary Purpose eClinicalWorks Submission
--- OUTSIDE RECORDS SUMMARY | 2019-01-14 11:11 | XMS REPORT ---
Author Author MEME SHAKEEL Organization [facility] Address [address] [place] [address] Care Team Providers Care Dental Coordinator Name Role Phone MEME SHAKEEL Unavailable PROBLEMS Type Condition ICD9-CM Code ENK12-BE Code Onset Dates Condition Status SNOMED Code Problem Allergic rhinitis J30.9 Active 25749606 Problem Hyperlipidemia E78.5 Active 09735450 Problem Onychomycosis B35.1 Active 149583225 Problem Essential hypertension I10 Active 97581362 Problem Hx of renal calculi Z87.442 Active 814217528 Problem GERD (gastroesophageal reflux disease) K21.9 Active 523624868 Problem Microalbuminuria R80.9 Active 108208081 Problem Type 2 diabetes mellitus with hyperglycemia E11.65 Active [id number] ALLERGIES No Information SOCIAL HISTORY Never Assessed PLAN OF CARE VITAL SIGNS MEDICATIONS Unknown Medications RESULTS Name Result Date Reference Range A1C (IN HOUSE) 2017-03-01 A1C IN HOUSE 6.9 4.3 - 5.6 % Previous A1c 7.2 Lot [id number] Exp date 11/2018 MICROALBUMIN, URINE (IN HOUSE) 2017-03-01 MICROALBUMIN Normal Lot # [id number] Exp date 01/2018 Clarity Clear Color Yellow ALB 10 CRE 200 A:C (IN HOUSE) <30 Control Normal Control Abnormal Lot # [id number] Exp date 05/2017 CBC 2017-03-01 WBC 7.6 3.4-10.8 RBC 5.43 4.14-5.80 Hemoglobin 15.5 12.6-17.7 Hematocrit 47.8 37.5-51.0 MCV 88 79-97 MCH 28.5 26.6-33.0 MCHC 32.4 31.5-35.7 RDW 14.4 12.3-15.4 Platelets 223 150-379 Neutrophils 66 Lymphs 22 Monocytes 9 Eos 2 Basos 1 Immature Cells Neutrophils (Absolute) 5.0 1.4-7.0 Lymphs (Absolute) 1.7 0.7-3.1 Monocytes(Absolute) 0.7 0.1-0.9 Eos (Absolute) 0.2 0.0-0.4 Baso (Absolute) 0.0 0.0-0.2 Immature Granulocytes 0 Immature Grans (Abs) 0.0 0.0-0.1 NRBC Hematology Comments: LIPID PANEL 2017-03-01 Cholesterol, Total 123 100-199 Triglycerides 125 0-149 HDL Cholesterol 40 >39 VLDL Cholesterol [place]ine 25 5-40 LDL Cholesterol Calc 58 0-99 CMP 2017-03-01 Glucose, Serum 109 65-99 BUN 10 6-24 Creatinine, Serum 0.61 0.76-1.27 eGFR If NonAfricn Am 119 >59 eGFR If Africn Am 137 >59 BUN/Creatinine Ratio 16 9-20 Sodium, Serum 142 134-144 Potassium, Serum 4.4 3.5-5.2 Chloride, Serum 101 96-106 Carbon Dioxide, Total 25 18-29 Calcium, Serum 9.1 8.7-10.2 Protein, Total, Serum 6.6 6.0-8.5 Albumin, Serum 4.4 3.5-5.5 Globulin, Total 2.2 1.5-4.5 A/G Ratio 2.0 1.2-2.2 Bilirubin, Total 0.2 0.0-1.2 Alkaline Phosphatase, S 67 39-117 AST (SGOT) 13 0-40 ALT (SGPT) 18 0-44 PROCEDURES Procedure Date Ordered Result Body Site COMPLETE CBC W/AUTO DIFF WBC March 01, 2017 LIPID PANEL March 01, 2017 GLYCATED HEMOGLOBIN TEST March 01, 2017 COMPREHEN METABOLIC PANEL March 01, 2017 VENIPUNCT, ROUTINE* March 01, 2017 MICROALBUMIN, SEMIQUANT March 01, 2017 IMMUNIZATIONS No Known Immunizations MEDICAL (GENERAL) HISTORY Type Description Date Medical History diabetes mellitus Medical History hypertension Medical History kidney stones Medical History acid reflux Medical History chronic pain Medical History Dyslipidemia
--- OUTSIDE RECORDS SUMMARY | 2019-01-14 11:12 | XMS REPORT ---
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 Name Role Phone HAIDER VALENTINEY Unavailable PROBLEMS Type Condition ICD9-CM Code AMC77-OE Code Onset Dates Condition Status SNOMED Code Problem Hyperlipidemia E78.5 Active 09313752 Problem GERD (gastroesophageal reflux disease) K21.9 Active 993376190 Problem Allergic rhinitis J30.9 Active 43791431 Problem Other elevated white blood cell count D72.828 Active 893278186 Problem Onychomycosis B35.1 Active 702053633 Problem Type 2 diabetes mellitus with hyperglycemia E11.65 Active 826605558 Problem Hx of renal calculi Z87.442 Active 886160605 Problem Essential hypertension I10 Active 45390147 Problem Microalbuminuria R80.9 Active 162095479 ALLERGIES No Information ENCOUNTERS Encounter Location Date Diagnosis [place] [address] [address]- [address] Nov, [place] [address] [place] [id number] [place] [address] 52183- 1912 Nov, Other elevated white blood cell count D72.828 [place] [address] [place] [id number] [place] [address] 45682- 6824 Nov, Type 2 diabetes mellitus with hyperglycemia E11.65 ; Hx of renal calculi Z87.442 ; Callus L84 ; Hyperlipidemia E78.5 and Essential hypertension I10 [place] [address] [address]- [address]60 Oct, Hx of renal calculi Z87.442 [place] [address] [place] [id number] [place] [address] 61590- 4055 Oct, Type 2 diabetes mellitus with hyperglycemia E11.65 ; Hyperlipidemia E78.5 ; GERD (gastroesophageal reflux disease) K21.9 and Essential hypertension I10 [place] [address] [place] [id number] [place] [address] 81005- 8980 Jul, [place] [address] [place] [id number] [place] [address] 71452- 2354 May, [place] [address] 31825- 0147 Mar, Type 2 diabetes mellitus with hyperglycemia E11.65 ; Hyperlipidemia E78.5 ; GERD (gastroesophageal reflux disease) K21.9 ; Hx of renal calculi Z87.442 ; Essential hypertension I10 ; Encounter for immunization Z23 and Arm numbness R20.0 [place] [address] 98985- 6691 Mar, Type 2 diabetes mellitus with hyperglycemia E11.65 ; Hyperlipidemia E78.5 and Essential hypertension I10 [place] [address] 57994- 4390 January, Type 2 diabetes mellitus with hyperglycemia E11.65 ; GERD ( gastroesophageal reflux disease) K21.9 ; Hyperlipidemia E78.5 ; Hx of renal calculi Z87.442 ; Allergic rhinitis J30.9 and Essential hypertension I10 [place] [address] [place] [id number] [place] [address] 07191- 9357 January, Type 2 diabetes mellitus with hyperglycemia E11.65 [place] [address] [place] [id number] [place] [address] 91918- 4973 January, [place] [address] [place] [id number] [place] [address] 17649- 7206 Oct, Neuropathic pain M79.2 and Onychomycosis B35.1 [place] [address] [place] [id number] [place] [address] 58567- 2718 Aug, [place] [address] [place] [id number] [place] [address] 45551- 7404 Aug, Type 2 diabetes mellitus with hyperglycemia E11.65 ; GERD ( gastroesophageal reflux disease) K21.9 ; Hx of renal calculi Z87.442 ; Essential hypertension I10 ; Chronic cough R05 ; Chest pain, unspecified type R07.9 ; Dry skin dermatitis L85.3 ; Allergic rhinitis J30.9 ; Hyperlipidemia E78.5 and Encounter for immunization Z23 [facility] [place] [address] 89044- 2202 Aug, [facility] [place] [address] 12196- 2053 Jun, [place] [address] 12324- 7592 Jun, [facility] [place] [address] 52539 -2546 Jun, [place] [address] 53996- 3061 Jun, [facility] [place] [address] 32376 -3278 Jun, Rib pain on right side R07.81 [place] [address] 72596- 5194 May, Chest pain, unspecified type R07.9 [place] [address] 73029- 0095 May, [facility] [address] 62677 -1739 Mar, Chest pain, unspecified type R07.9 [place] [address] 76689- 7736 Mar, [place] [address] 36179- 9272 Mar, Type 2 diabetes mellitus with hyperglycemia E11.65 ; GERD ( gastroesophageal reflux disease) K21.9 and Hx of renal calculi Z87.442 [place] [address] [place] [address]- 5965 Dec, [facility] [place] [address] [place] [id number] [place] [address] 382836- 5189 Nov, [facility] [place] [address] [place] [id number] [place] [address] 107089- 6574 Nov, Chronic cough R05 [facility] [place] [address] [place] [id number] [place] [address] 130067- 4143 Nov, [facility] [place] [address] [place] [id number] [place] [address] 064829- 1641 Nov, [facility] [place] [address] [place] [id number] [place] [address] 825000- 5030 Nov, [facility] [place] [address] [place] [id number] [place] [address] 45522- 2959 Nov, [facility] [place] [address] [place] [id number] [place] [address] 56123- 1624 Nov, Type 2 diabetes mellitus with hyperglycemia E11.65 ; Elevated TSH R94.6 ; Hyperlipidemia E78.5 ; Microalbuminuria R80.9 ; Tinea pedis B35.3 ; Chronic cough R05 ; GERD (gastroesophageal reflux disease) K21.9 ; Allergic rhinitis J30.9 and Hx of renal calculi Z87.442 [facility] [place] [address] [address]753 Aug, [facility] [place] [address] [place] [id number] [place] [address] 21058- 6157 Aug, Hx of renal calculi Z87.442 [facility] [place] [address] [place] [id number] [place] [address] 96632- 6236 Aug, [facility] [place] [address] [place] [id number] [place] [address] 42429- 4264 Aug, [facility] [place] [id number] [place] [address] 22572- 4620 Aug, [facility] [place] [address] [place] [id number] [address]- 0104 Aug, Type 2 diabetes mellitus without complication E11.9 ; Elevated TSH R94.6 and Hyperlipidemia E78.5 [facility] [place] [address] [address]- 1253 Jul, [facility] [place] [address] [address]- 0799 Jun, [facility] [place] [address] [place] [id number] [place] [address] 44535- 4758 Mar, Abnormal thyroid blood test 794.5 [facility] [place] [address] [place] [id number] [place] [address] 42725- 3997 Mar, [facility] [place] [address] [place] [id number] [place] [address] 09363- 0114 Mar, Abnormal thyroid blood test 794.5 [facility] [place] [address] [place] [id number] [place] [address] 58110- 0890 Mar, Abnormal thyroid blood test 794.5 [facility] [place] [id number] [place] [address] 29422- 1466 Mar, [facility] [place] [id number] [place] [address] 36498- 5026 Mar, Diabetes type 2, uncontrolled 250.02 and Fungal infection of foot 110.4 [facility] [place] [address] [address]- 0711 Mar, Left flank pain 789.09 [facility], [place] [id number] [place] [address] 76332- 4576 January, Left flank pain 789.09 [facility] [place] [address] [address]- 4953 Dec, [facility] [place] [address] [address]- 6470 Dec, [facility] [place] [address] [address]- 1206 Dec, [facility] [place] [facility] [address] [id number] [place] [address]- 7381 Nov, [facility] [place] [facility] [address] [id number] [place] [address]- 1878 Nov, [facility] [place] [facility] [address] [facility] [id number] [place] [address]- 4183 Nov, [facility] [place] [facility] [address] [id number] [place] [address]- 9865 Nov, [facility] [place] [facility] [address] [id number] [place] [address]- 7224 Oct, [facility] [place] [facility] [address] [facility] [id number] [place] [address]- 5013 Oct, [facility] [place] [facility] [address] [facility] [id number] [place] [address]- 2832 Oct, [facility] [place] [facility] [address] [facility] [id number] [address]- 1062 Oct, [facility] [place] [facility] [address] [facility] [id number] [place] [address]- 5599 Oct, [facility] [place] [facility] [address] [facility] [id number] [place] [address]- 5065 Oct, [facility] [place] [facility] [address] [facility] [id number] [place] [address]- 3835 Aug, [facility] [place] [facility] [address] [id number] [address]- 2680 15 Aug, 2014 [facility] [place] [facility] [address] [id number] [address]- 6483 Jul, [facility] [place] [facility] [address] [facility] [id number] [place] [address]- 4179 17 Jul, 2014 [facility] [place] [facility] [address] [facility] [id number] [address]- 2874 14 Jul, 2014 [facility] [place] [facility] [address] [id number] [place] [address]- 5814 14 Jul, 2014 [facility] [place] [facility] [address] [id number] [place] [address]- 6888 Jun, [facility] [place] [facility] [address] [id number] [place] [address]- 3098 Jun, [facility] [place] [facility] [address] [id number] [place] [address]- 6940 Jun, [facility] [place] [facility] [address] [id number] [place] [address]- 9054 Jun, [facility] [place] [facility] [address] [id number] [place] [address]- 0924 Mar, [facility] [place] [facility] [address] [id number] [place] [address]- 6458 Mar, [facility] [place] [facility] [address] [id number] [place] [address]- 6226 Mar, [facility] [place] [facility] [address] [id number] [place] [address]- 9093 Mar, [facility] [place] [facility] [address] [id number] [place] [address]- 9379 Mar, [facility] [place] [facility] [address] [id number] [place] [address]- 6206 Mar, [facility] [place] [facility] [address] [id number] [place] [address]- 3881 Mar, [facility] [place] [facility] [address] [id number] [place] [address]- 0014 Mar, [facility] [place] [facility] [address] [id number] [place] [address]- 4302 Mar, [facility] [place] [facility] [address] [id number] [place] [address]- 9182 Mar, [facility] [place] [facility] [address] [id number] [place] [address]- 3045 Mar, [facility] [place] [facility] [address] [id number] [place] [address]- 4365 Mar, [facility] [place] [facility] [address] [id number] [place] [address]- 2582 Mar, [facility] [place] [facility] [address] [id number] [place] [address]- 6389 Mar, [facility] [place] [facility] [address] [id number] [place] [address]- 7386 Mar, [facility] [place] [facility] [address] [id number] [place] [address]- 4302 Mar, [facility] [place] [facility] [address] [id number] [place] [address]- 7902 Mar, [facility] [place] [facility] [address] [id number] [place] [address]- 2578 Mar, [facility] [place] [facility] [address] [id number] [place] [address]- 6620 January, [facility] [place] [facility] [address] [id number] [place] [address]- 0200 January, [facility] [place] [facility] [address] [id number] [place] [address]- 6707 January, [facility] [place] [facility] [address] [id number] [place] [address]- 8874 January, [facility] [place] [facility] [address] [id number] [place] [address]- 5617 January, [facility] [place] [facility] [address] [id number] [place] [address]- 5063 January, [facility] [place] [facility] [address] [id number] [place] [address]- 3449 January, [facility] [place] [facility] [address] [id number] [place] [address]- 9607 January, [facility] [place] [facility] [address] [id number] [place] [address]- 9473 January, [facility] [address] [id number] [place] [address]- 4052 January, [facility] [address] [id number] [place] [address]- 4744 Dec, [facility] [address] [id number] [place] [address]- 3499 Dec, [facility] [address] [id number] [place] [address]- 2507 Dec, [facility] [address] [id number] [place] [address]- 4624 Dec, [facility] [address] [id number] [place] [address]- 6388 Dec, [facility] [address] [id number] [place] [address]- 5059 Dec, [facility] [address] [id number] [place] [address]- 5604 Dec, [facility] [address] [id number] [place] [address]- 9541 Dec, [facility] [address] [id number] [place] [address]- 2835 Dec, [facility] [address] [id number] [place] [address]- 6780 Dec, [facility] [address] [id number] [place] [address]- 2513 Dec, [facility] [place] [facility] [address] [id number] [place] [address]- 8951 Dec, [facility] [place] [facility] [address] [id number] [place] [address]- 9909 Dec, [facility] [place] [facility] [address] [id number] [place] [address]- 7434 Dec, [facility] [place] [facility] [address] [id number] [place] [address]- 6998 Nov, [facility] [place] [facility] [address] [id number] [place] 0827 Nov, [facility] [place] [facility] [address] [id number] [place] [address]- 9331 Nov, [facility] [place] [facility] [address] [id number] [place] [address]- 2169 Nov, [facility] [place] [facility] [address] [id number] [place] [address]- 3387 Aug, [facility] [place] [facility] [address] [id number] [place] [address]- 8036 Aug, [facility] [place] [facility] [address] [id number] [place] [address]- 9363 Aug, [facility] [place] [facility] [address] [id number] [place] [address]- 3685 Aug, [facility] [place] [facility] [address] [id number] [place] [address]- 5415 Aug, [facility] [place] [facility] [address] [id number] [place] [address]- 9842 Aug, [facility] [place] [facility] [address] [id number] [place] [address]- 9442 Jul, [facility] [place] [facility] [address] [id number] [address]- 5377 Jul, [facility] [place] [facility] [address] [id number] [place] [address]- 1994 May, [facility] [place] [facility] [address] [id number] [place] [address]- 7653 May, [facility] [place] [facility] [address] [id number] [place] [address]- 5315 Mar, [facility] [place] [facility] [address] [id number] [place] [address]- 0886 Mar, [facility] [address] [id number] [place] [address]- 4205 Mar, [facility] [place] [facility] [address] [id number] [place] [address]- 7130 Mar, [facility] [address] [id number] [place] [address]- 3558 Mar, [facility] [place] [facility] [address] [id number] [place] [address]- 4840 Mar, [facility] [place] [facility] [address] [id number] [place] [address]- 7692 Mar, [facility] [place] [facility] [address] [id number] [place] [address]- 0829 Mar, [facility] [address] [id number] [place] [address]- 3467 Dec, [facility] [place] [facility] [address] [id number] [place] [address]- 3848 16 Dec, 2012 [facility] [address] [id number] [place] [address]- 7216 15 Dec, 2012 [facility] [place] [facility] [address] [id number] [place] [address]- 3697 Dec, [facility] [place] [facility] [address] [id number] [place] [address]- 9972 Dec, [facility] [place] [facility] [address] [id number] [place] [address]- 7099 Nov, [facility] [place] [facility] [address] [id number] [place] [address]- 2567 Nov, [facility] [place] [facility] [address] [id number] [place] [address]- 0215 Oct, [facility] [place] [facility] [address] [id number] [place] [address]- 1204 Oct, [facility] [place] [facility] [address] [id number] [place] [address]- 9747 Oct, [facility] [place] [facility] [address] [id number] [place] [address]- 0338 Oct, [facility] [place] [facility] [address] [id number] [place] 3026 Aug, [facility] [place] [facility] [address] [id number] [place] [address]- 2876 Aug, [facility] [place] [facility] [address] [id number] [place] [address]- 1514 Aug, [facility] [place] [facility] [address] [id number] [place] [address]- 0892 Aug, [facility] [place] [facility] [address] [id number] [place] [address]- 5321 Aug, [facility] [place] [facility] [address] [id number] [place] [address]- 8556 Aug, [facility] [place] [facility] [address] [id number] [place] [address]- 2933 Jul, [facility] [place] [facility] [address] [id number] [place] [address]- 2842 Jul, [facility] [place] [facility] [address] [id number] [place] [address]- 1482 Jun, [facility] [place] [facility] [address] [id number] [place] [address]- 2975 Jun, [facility] [place] [facility] [address] [id number] [place] [address]- 2542 May, [facility] [place] [facility] [address] [id number] [place] [address]- 0496 May, [facility] [place] [facility] [address] [id number] [place] [address]- 4906 May, [facility] [place] [facility] [address] [id number] [place] [address]- 1107 Mar, [facility] [place] [facility] [address] [id number] [place] [address]- 6831 Mar, [facility] [place] [facility] [address] [id number] [place] [address]- 6531 Mar, [facility] [place] [facility] [address] [id number] [place] 6120 Mar, [facility] [place] [facility] [address] [id number] [place] [address]- 5942 Mar, [facility] [place] [facility] [address] [id number] [place] [address]- 2405 Mar, [facility] [place] [facility] [address] [id number] [place] [address]- 5506 Mar, [facility] [place] [facility] [address] [id number] [place] [address]- 0170 January, [facility] [place] [facility] [address] [id number] [place] [address]- 2557 January, [facility] [place] [facility] [address] [id number] [place] [address]- 7230 January, [facility] [place] [facility] [address] [id number] [place] [address]- 9087 January, [facility] [place] [facility] [address] [id number] [place] [address] January, [facility] [place] [facility] [address] [id number] [place] [address] Nov, [facility] [place] [facility] [address] [id number] [place] [address] Nov, [facility] [place] [facility] [address] [id number] [place] [address] Nov, [facility] [place] [facility] [address] [id number] [place] [address] Nov, [facility] [place] [facility] [id number] [address] Nov, [facility], [place] [id number] [address] Oct, [facility], [place] [id number] [address] Oct, [facility], [place] [id number] [address] Aug, [facility], [place] [id number] [address] Aug, [facility], [place] [id number] [place] [address] Aug, [facility], [place] [id number] [address] Aug, [facility], [place] [id number] [address] Jul, [facility], [place] [id number] [address] Jul, [facility], [place] [id number] [address] Mar, IMMUNIZATIONS No Known Immunizations SOCIAL HISTORY Never Assessed REASON FOR VISIT PA for Rabeprazole BID PLAN OF CARE VITAL SIGNS MEDICATIONS Unknown Medications RESULTS No Results PROCEDURES No Known procedures INSTRUCTIONS MEDICATIONS ADMINISTERED No Known Medications MEDICAL (GENERAL) HISTORY Type Description Date Medical History diabetes mellitus Medical History hypertension Medical History kidney stones Medical History acid reflux Medical History chronic pain Medical History Dyslipidemia
--- OUTSIDE RECORDS SUMMARY | 2019-01-14 11:13 | XMS REPORT | Continuity of Care Document ---
Author Organization Unknown Address Unknown Allergies Active Description Code Type Severity Reaction Onset Reported/Identified Relationship to Patient Clinical Status Yes metformin Drug Allergy 11/14/2011 Yes metformin Drug Allergy N/A N/A 11/14/2011 Yes No Allergy Information Available [id number] Drug Allergy Unknown N/A 2015 Medications There is no data. Problems Date Dx Coded Attending Type Code Diagnosis Diagnosed By 10/21/2010 250.00 DIABETES MELLITUS POORLY CONTROLLED 10/21/2010 250.00 DIABETES MELLITUS POORLY CONTROLLED 10/21/2010 NETTA RYDER DO 250.00 DIABETES MELLITUS POORLY CONTROLLED 10/21/2010 NETTA RYDER DO 250.00 DIABETES MELLITUS POORLY CONTROLLED 10/21/2010 250.00 DIABETES MELLITUS POORLY CONTROLLED 10/21/2010 250.00 DIABETES MELLITUS POORLY CONTROLLED 10/21/2010 250.00 DIABETES MELLITUS POORLY CONTROLLED 10/21/2010 NETTA RYDER DO K 250.00 DIABETES MELLITUS POORLY CONTROLLED 10/21/2010 NETTA RYDER DO K 250.00 DIABETES MELLITUS POORLY CONTROLLED 10/21/2010 NETTA RYDER DO K 250.00 DIABETES MELLITUS POORLY CONTROLLED 10/21/2010 NETTA RYDER DO K 250.00 DIABETES MELLITUS POORLY CONTROLLED 10/21/2010 NETTA RYDER DO K 250.00 DIABETES MELLITUS POORLY CONTROLLED 10/21/2010 NETTA RYDER DO K 250.00 DIABETES MELLITUS POORLY CONTROLLED 10/21/2010 MARS LICONA APRN 250.00 DIABETES MELLITUS POORLY CONTROLLED 10/21/2010 NETTA RYDER DO K 250.00 DIABETES MELLITUS POORLY CONTROLLED 10/27/2010 V06.5 DT, TETANUS- DIPHTHERIA [Td] ,TDAP 10/27/2010 V06.5 DT, TETANUS- DIPHTHERIA [Td] ,TDAP 10/27/2010 NETTA RYDER DO V06.5 DT, TETANUS-DIPHTHERIA [Td] ,TDAP 10/27/2010 NETTA RYDER DO V06.5 DT, TETANUS-DIPHTHERIA [Td] ,TDAP 10/27/2010 V06.5 DT, TETANUS- DIPHTHERIA [Td] ,TDAP 10/27/2010 V06.5 DT, TETANUS- DIPHTHERIA [TD] ,TDAP 10/27/2010 V06.5 DT, TETANUS- DIPHTHERIA [TD] ,TDAP 10/27/2010 NETTA RYDER DO K V06.5 DT, TETANUS-DIPHTHERIA [TD] ,TDAP 10/27/2010 NETTA RYDER DO K V06.5 DT, TETANUS-DIPHTHERIA [TD] ,TDAP 10/27/2010 NETTA RYDER DO K V06.5 DT, TETANUS-DIPHTHERIA [TD] ,TDAP 10/27/2010 NETTA RYDER DO K V06.5 DT, TETANUS-DIPHTHERIA [TD] ,TDAP 10/27/2010 NETTA RYDER DO K V06.5 DT, TETANUS-DIPHTHERIA [Td] ,TDAP 10/27/2010 NETTA RYDER DO K V06.5 DT, TETANUS-DIPHTHERIA [TD] ,TDAP 10/27/2010 MARS LICONA APRN V06.5 DT, TETANUS-DIPHTHERIA [TD] ,TDAP 10/27/2010 NETTA RYDER DO K V06.5 DT, TETANUS-DIPHTHERIA [TD] ,TDAP 11/24/2010 305.1 NONDEPENDENT TOBACCO USE DISORDER 11/24/2010 461.9 Sinusitis Acute 11/24/2010 305.1 NONDEPENDENT TOBACCO USE DISORDER 11/24/2010 461.9 Sinusitis Acute 11/24/2010 NETTA RYDER DO 305.1 NONDEPENDENT TOBACCO USE DISORDER 11/24/2010 NETTA RYDER DO 461.9 Sinusitis Acute 11/24/2010 NETTA RYDER DO 305.1 NONDEPENDENT TOBACCO USE DISORDER 11/24/2010 NETTA RYDER DO 461.9 Sinusitis Acute 11/24/2010 305.1 NONDEPENDENT TOBACCO USE DISORDER 11/24/2010 461.9 Sinusitis Acute 11/24/2010 305.1 NONDEPENDENT TOBACCO USE DISORDER 11/24/2010 461.9 Sinusitis Acute 11/24/2010 305.1 NONDEPENDENT TOBACCO USE DISORDER 11/24/2010 461.9 Sinusitis Acute 11/24/2010 NETTA RYDER DO 305.1 NONDEPENDENT TOBACCO USE DISORDER 11/24/2010 RYDER DO, NETTA K 461.9 Sinusitis Acute 11/24/2010 RYDER DO, NETTA K 305.1 NONDEPENDENT TOBACCO USE DISORDER 11/24/2010 RYDER DO, NETTA K 461.9 Sinusitis Acute 11/24/2010 RYDER DO, NETTA K 305.1 NONDEPENDENT TOBACCO USE DISORDER 11/24/2010 RYDER DO, NETTA K 461.9 Sinusitis Acute 11/24/2010 RYDER DO, NETTA K 305.1 NONDEPENDENT TOBACCO USE DISORDER 11/24/2010 RYDER DO, NETTA K 461.9 Sinusitis Acute 11/24/2010 RYDER DO, NETTA K 305.1 NONDEPENDENT TOBACCO USE DISORDER 11/24/2010 RYDER DO, NETTA K 461.9 Sinusitis Acute 11/24/2010 RYDER DO, NETTA K 305.1 NONDEPENDENT TOBACCO USE DISORDER 11/24/2010 RYDER DO, NETTA K 461.9 Sinusitis Acute 11/24/2010 LIVAN FLOOR PRESS OPERATOR, MARS R 305.1 NONDEPENDENT TOBACCO USE DISORDER 11/24/2010 LIVAN FLOOR PRESS OPERATOR, MARS R 461.9 Sinusitis Acute 11/24/2010 RYDER DO, NETTA K 305.1 NONDEPENDENT TOBACCO USE DISORDER 11/24/2010 RYDER DO, NETTA K 461.9 Sinusitis Acute 04/25/2011 302.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 04/25/2011 302.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 04/25/2011 RYDER DO NETTA K 302.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 04/25/2011 RYDER DO NETTA K 302.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 04/25/2011 302.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 04/25/2011 302.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 04/25/2011 302.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 04/25/2011 RYDER DO NETTA K 302.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 04/25/2011 RYDER DO NETTA K 302.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 04/25/2011 RYDER DO NETTA K 302.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 04/25/2011 RYDER DO NETTA K 302.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 04/25/2011 RYDER DO, NETTA K 302.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 04/25/2011 RYDER DO, NETTA K 302.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 04/25/2011 MARS LICONA APRN 302.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 04/25/2011 RDYER DO, NETTA K 302.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 05/08/2011 V16.9 FAMILY HISTORY OF UNSPECIFIED MALIGNANT NEOPLASM 05/08/2011 V16.9 FAMILY HISTORY OF UNSPECIFIED MALIGNANT NEOPLASM 05/08/2011 RYDER DO, NETTA K V16.9 FAMILY HISTORY OF UNSPECIFIED MALIGNANT NEOPLASM 05/08/2011 RYDER DO, NETTA K V16.9 FAMILY HISTORY OF UNSPECIFIED MALIGNANT NEOPLASM 05/08/2011 V16.9 FAMILY HISTORY OF UNSPECIFIED MALIGNANT NEOPLASM 05/08/2011 V16.9 FAMILY HISTORY OF UNSPECIFIED MALIGNANT NEOPLASM 05/08/2011 V16.9 FAMILY HISTORY OF UNSPECIFIED MALIGNANT NEOPLASM 05/08/2011 RYDER DO, NETTA K V16.9 FAMILY HISTORY OF UNSPECIFIED MALIGNANT NEOPLASM 05/08/2011 RYDER DO, NETTA K V16.9 FAMILY HISTORY OF UNSPECIFIED MALIGNANT NEOPLASM 05/08/2011 RYDER DO, NETTA K V16.9 FAMILY HISTORY OF UNSPECIFIED MALIGNANT NEOPLASM 05/08/2011 RYDER DO, NETTA K V16.9 FAMILY HISTORY OF UNSPECIFIED MALIGNANT NEOPLASM 05/08/2011 RYDER DO, NETTA K V16.9 FAMILY HISTORY OF UNSPECIFIED MALIGNANT NEOPLASM 05/08/2011 RYDER DO, NETTA K V16.9 FAMILY HISTORY OF UNSPECIFIED MALIGNANT NEOPLASM 05/08/2011 MARS LICONA APRN V16.9 FAMILY HISTORY OF UNSPECIFIED MALIGNANT NEOPLASM 05/08/2011 RYDER DO, NETTA K V16.9 FAMILY HISTORY OF UNSPECIFIED MALIGNANT NEOPLASM 06/28/2011 110.4 DERMATOPHYTOSIS OF FOOT 06/28/2011 607.84 IMPOTENCE OF ORGANIC ORIGIN 06/28/2011 787.91 Diarrhea 06/28/2011 110.4 DERMATOPHYTOSIS OF FOOT 06/28/2011 607.84 IMPOTENCE OF ORGANIC ORIGIN 06/28/2011 787.91 Diarrhea 06/28/2011 RYDER DO, NETTA K 110.4 DERMATOPHYTOSIS OF FOOT 06/28/2011 RYDER DO, NETTA K 607.84 IMPOTENCE OF ORGANIC ORIGIN 06/28/2011 RYDER DO, NETTA K 787.91 Diarrhea 06/28/2011 RYDER DO, NETTA K 110.4 DERMATOPHYTOSIS OF FOOT 06/28/2011 RYDER DO, NETTA K 607.84 IMPOTENCE OF ORGANIC ORIGIN 06/28/2011 RYDER DO, NETTA K 787.91 Diarrhea 06/28/2011 110.4 DERMATOPHYTOSIS OF FOOT 06/28/2011 607.84 IMPOTENCE OF ORGANIC ORIGIN 06/28/2011 787.91 Diarrhea 06/28/2011 110.4 DERMATOPHYTOSIS OF FOOT 06/28/2011 607.84 IMPOTENCE OF ORGANIC ORIGIN 06/28/2011 787.91 Diarrhea 06/28/2011 110.4 DERMATOPHYTOSIS OF FOOT 06/28/2011 607.84 IMPOTENCE OF ORGANIC ORIGIN 06/28/2011 787.91 Diarrhea 06/28/2011 RYDER DO, NETTA K 110.4 DERMATOPHYTOSIS OF FOOT 06/28/2011 RYDER DO, NETTA K 607.84 IMPOTENCE OF ORGANIC ORIGIN 06/28/2011 RYDER DO, NETTA K 787.91 Diarrhea 06/28/2011 RYDER DO, NETTA K 110.4 DERMATOPHYTOSIS OF FOOT 06/28/2011 RYDER DO, NETTA K 607.84 IMPOTENCE OF ORGANIC ORIGIN 06/28/2011 RYDER DO, NETTA K 787.91 Diarrhea 06/28/2011 RYDER DO, NETTA K 110.4 DERMATOPHYTOSIS OF FOOT 06/28/2011 RYDER DO, NETTA K 607.84 IMPOTENCE OF ORGANIC ORIGIN 06/28/2011 RYDER DO, NETTA K 787.91 Diarrhea 06/28/2011 RYDER DO, NETTA K 110.4 DERMATOPHYTOSIS OF FOOT 06/28/2011 RYDER DO, NETTA K 607.84 IMPOTENCE OF ORGANIC ORIGIN 06/28/2011 RYDER DO, NETTA K 787.91 Diarrhea 06/28/2011 RYDER DO, NETTA K 110.4 DERMATOPHYTOSIS OF FOOT 06/28/2011 RYDER DO, NETTA K 607.84 IMPOTENCE OF ORGANIC ORIGIN 06/28/2011 RYDER DO, NETTA K 787.91 Diarrhea 06/28/2011 RYDER DO, NETTA K 110.4 DERMATOPHYTOSIS OF FOOT 06/28/2011 RYDER DO, NETTA K 607.84 IMPOTENCE OF ORGANIC ORIGIN 06/28/2011 RYDER DO, NETTA K 787.91 Diarrhea 06/28/2011 LIVAN PATELN, MARS R 110.4 DERMATOPHYTOSIS OF FOOT 06/28/2011 LIVAN FLOOR PRESS OPERATOR, MARS R 607.84 IMPOTENCE OF ORGANIC ORIGIN 06/28/2011 LIVAN PATELN, MARS R 787.91 Diarrhea 06/28/2011 RYDER DO, NETTA K 110.4 DERMATOPHYTOSIS OF FOOT 06/28/2011 RYDER DO, NETTA K 607.84 IMPOTENCE OF ORGANIC ORIGIN 06/28/2011 RYDER DO, NETTA K 787.91 Diarrhea 07/25/2011 V04.81 FLU DX (3 YRS AND ABOVE, IM) 07/25/2011 V04.81 FLU DX (3 YRS AND ABOVE, IM) 07/25/2011 RYDER DO, NETTA K V04.81 FLU DX (3 YRS AND ABOVE, IM) 07/25/2011 RYDER DO, NETTA K V04.81 FLU DX (3 YRS AND ABOVE, IM) 07/25/2011 V04.81 FLU DX (3 YRS AND ABOVE, IM) 07/25/2011 V04.81 FLU DX (3 YRS AND ABOVE, IM) 07/25/2011 V04.81 FLU DX (3 YRS AND ABOVE, IM) 07/25/2011 RYDER DO, NETTA K V04.81 FLU DX (3 YRS AND ABOVE, IM) 07/25/2011 RYDER DO, NETTA K V04.81 FLU DX (3 YRS AND ABOVE, IM) 07/25/2011 RYDER DO, NETTA K V04.81 FLU DX (3 YRS AND ABOVE, IM) 07/25/2011 RYDER DO, NTETA K V04.81 FLU DX (3 YRS AND ABOVE, IM) 07/25/2011 RYDER DO, NETTA K V04.81 FLU DX (3 YRS AND ABOVE, IM) 07/25/2011 RYDER DO, NETTA K V04.81 FLU DX (3 YRS AND ABOVE, IM) 07/25/2011 LIVAN PATELN, MARS R V04.81 FLU DX (3 YRS AND ABOVE, IM) 07/25/2011 RYDER DO, NETTA K V04.81 FLU DX (3 YRS AND ABOVE, IM) 09/13/2011 784.0 Headache 09/13/2011 908.9 Late Effect Of Unspecified Injury 09/13/2011 784.0 Headache 09/13/2011 908.9 Late Effect Of Unspecified Injury 09/13/2011 RYDER DO, NETTA K 784.0 Headache 09/13/2011 RYDER DO, NETTA K 908.9 Late Effect Of Unspecified Injury 09/13/2011 RYDER DO, NETTA K 784.0 Headache 09/13/2011 RYDER DO, NETTA K 908.9 Late Effect Of Unspecified Injury 09/13/2011 784.0 Headache 09/13/2011 908.9 Late Effect Of Unspecified Injury 09/13/2011 784.0 Headache 09/13/2011 908.9 Late Effect Of Unspecified Injury 09/13/2011 784.0 Headache 09/13/2011 908.9 Late Effect Of Unspecified Injury 09/13/2011 RYDER DO, NETTA K 784.0 Headache 09/13/2011 RYDER DO, NETTA K 908.9 Late Effect Of Unspecified Injury 09/13/2011 RYDER DO, NETTA K 784.0 Headache 09/13/2011 RYDER DO, NETTA K 908.9 Late Effect Of Unspecified Injury 09/13/2011 RYDER DO, NETTA K 784.0 Headache 09/13/2011 RYDER DO, NETTA K 908.9 Late Effect Of Unspecified Injury 09/13/2011 RYDER DO, NETTA K 784.0 Headache 09/13/2011 RYDER DO, NETTA K 908.9 Late Effect Of Unspecified Injury 09/13/2011 RYDER DO, NETTA K 784.0 Headache 09/13/2011 RYDER DO, NETTA K 908.9 Late Effect Of Unspecified Injury 09/13/2011 RYDER DO, NETTA K 784.0 Headache 09/13/2011 RYDER DO, NETTA K 908.9 Late Effect Of Unspecified Injury 09/13/2011 LIVAN FLOOR PRESS OPERATOR, MARS R 784.0 Headache 09/13/2011 LIVAN FLOOR PRESS OPERATOR, MARS R 908.9 Late Effect Of Unspecified Injury 09/13/2011 RYDER DO, NETTA K 784.0 Headache 09/13/2011 RYDER DO, NETTA K 908.9 Late Effect Of Unspecified Injury 11/08/2011 079.99 Viral Syndrome 11/08/2011 079.99 Viral Syndrome 11/08/2011 RYDER DO, NETTA K 079.99 Viral Syndrome 11/08/2011 RYDER DO, NETTA K 079.99 Viral Syndrome 11/08/2011 079.99 Viral Syndrome 11/08/2011 079.99 Viral Syndrome 11/08/2011 079.99 Viral Syndrome 11/08/2011 RYDER DO, NETTA K 079.99 Viral Syndrome 11/08/2011 RYDER DO, NETTA K 079.99 Viral Syndrome 11/08/2011 RYDER DO, NETTA K 079.99 Viral Syndrome 11/08/2011 RYDER DO, NETTA K 079.99 Viral Syndrome 11/08/2011 RYDER DO, NETTA K 079.99 Viral Syndrome 11/08/2011 RYDER DO, NETTA K 079.99 Viral Syndrome 11/08/2011 MARS LICONA APRN 079.99 Viral Syndrome 11/08/2011 RYDER DO, NETTA K 079.99 Viral Syndrome 02/28/2012 272.4 OTHER AND UNSPECIFIED HYPERLIPIDEMIA 02/28/2012 272.4 OTHER AND UNSPECIFIED HYPERLIPIDEMIA 02/28/2012 RYDER DO, NETTA K 272.4 OTHER AND UNSPECIFIED HYPERLIPIDEMIA 02/28/2012 RYDER DO, NETTA K 272.4 OTHER AND UNSPECIFIED HYPERLIPIDEMIA 02/28/2012 272.4 OTHER AND UNSPECIFIED HYPERLIPIDEMIA 02/28/2012 272.4 OTHER AND UNSPECIFIED HYPERLIPIDEMIA 02/28/2012 272.4 OTHER AND UNSPECIFIED HYPERLIPIDEMIA 02/28/2012 RYDER DO, NETTA K 272.4 OTHER AND UNSPECIFIED HYPERLIPIDEMIA 02/28/2012 RYDER DO, NETTA K 272.4 OTHER AND UNSPECIFIED HYPERLIPIDEMIA 02/28/2012 RYDER DO, NETTA K 272.4 OTHER AND UNSPECIFIED HYPERLIPIDEMIA 02/28/2012 RYDER DO, NETTA K 272.4 OTHER AND UNSPECIFIED HYPERLIPIDEMIA 02/28/2012 RYDER DO, NETTA K 272.4 OTHER AND UNSPECIFIED HYPERLIPIDEMIA 02/28/2012 RYDER DO, NETTA K 272.4 OTHER AND UNSPECIFIED HYPERLIPIDEMIA 02/28/2012 MARS LICONA APRN R 272.4 OTHER AND UNSPECIFIED HYPERLIPIDEMIA 02/28/2012 RYDER DO, NETTA K 272.4 OTHER AND UNSPECIFIED HYPERLIPIDEMIA 03/04/2012 477.9 Rhinitis 03/04/2012 530.81 GERD 03/04/2012 V65.42 COUNSELING - SMOKING CESSATION 03/04/2012 477.9 Rhinitis 03/04/2012 530.81 GERD 03/04/2012 V65.42 COUNSELING - SMOKING CESSATION 03/04/2012 RYDER DO, NETTA K 477.9 Rhinitis 03/04/2012 RYDER DO, NETTA K 530.81 GERD 03/04/2012 RYDER DO, NETTA K V65.42 COUNSELING - SMOKING CESSATION 03/04/2012 RYDER DO, NETTA K 477.9 Rhinitis 03/04/2012 RYDER DO, NETTA K 530.81 GERD 03/04/2012 RYDER DO, NETTA K V65.42 COUNSELING - SMOKING CESSATION 03/04/2012 477.9 Rhinitis 03/04/2012 530.81 GERD 03/04/2012 V65.42 COUNSELING - SMOKING CESSATION 03/04/2012 477.9 Rhinitis 03/04/2012 530.81 GERD 03/04/2012 V65.42 COUNSELING - SMOKING CESSATION 03/04/2012 477.9 Rhinitis 03/04/2012 530.81 GERD 03/04/2012 V65.42 COUNSELING - SMOKING CESSATION 03/04/2012 RYDER DO, NETTA K 477.9 Rhinitis 03/04/2012 RYDER DO, NETTA K 530.81 GERD 03/04/2012 RYDER DO, NETTA K V65.42 COUNSELING - SMOKING CESSATION 03/04/2012 RYDER DO, NETTA K 477.9 Rhinitis 03/04/2012 RYDER DO, NETTA K 530.81 GERD 03/04/2012 RYDER DO, NETTA K V65.42 COUNSELING - SMOKING CESSATION 03/04/2012 RYDER DO, NETTA K 477.9 Rhinitis 03/04/2012 RYDER DO, NETTA K 530.81 GERD 03/04/2012 RYDER DO, NETTA K V65.42 COUNSELING - SMOKING CESSATION 03/04/2012 RYDER DO, NETTA K 477.9 Rhinitis 03/04/2012 RYDER DO, NETTA K 530.81 GERD 03/04/2012 RYDER DO, NETTA K V65.42 COUNSELING - SMOKING CESSATION 03/04/2012 RYDER DO, NETTA K 477.9 Rhinitis 03/04/2012 RYDER DO, NETTA K 530.81 GERD 03/04/2012 RYDER DO, NETTA K V65.42 COUNSELING - SMOKING CESSATION 03/04/2012 BARRETT RYDER DOA K 477.9 Rhinitis 03/04/2012 RYDER BARRETT PASCALA K 530.81 GERD 03/04/2012 RYDER DO NETTA K V65.42 COUNSELING - SMOKING CESSATION 03/04/2012 LIVAN FLOOR PRESS OPERATOR, MARS R 477.9 Rhinitis 03/04/2012 LIVAN FLOOR PRESS OPERATOR, MARS R 530.81 GERD 03/04/2012 LIVAN FLOOR PRESS OPERATOR, MARS R V65.42 COUNSELING - SMOKING CESSATION 03/04/2012 RYDER BARRETT PASCALA K 477.9 Rhinitis 03/04/2012 RYDER DO NTETA K 530.81 GERD 03/04/2012 RYDER DO NETTA K V65.42 COUNSELING - SMOKING CESSATION 06/20/2012 381.81 EUSTACHIAN TUBE DYSFUNCTION 06/20/2012 796.2 ELEVATED BLOOD PRESSURE READING WITHOUT DIAGNOSIS OF HYPERTENSION 06/20/2012 381.81 EUSTACHIAN TUBE DYSFUNCTION 06/20/2012 796.2 ELEVATED BLOOD PRESSURE READING WITHOUT DIAGNOSIS OF HYPERTENSION 06/20/2012 NETTA RYDER DO K 381.81 EUSTACHIAN TUBE DYSFUNCTION 06/20/2012 NETTA RYDER DO K 796.2 ELEVATED BLOOD PRESSURE READING WITHOUT DIAGNOSIS OF HYPERTENSION 06/20/2012 NETTA RYDER DO K 381.81 EUSTACHIAN TUBE DYSFUNCTION 06/20/2012 NETTA RYDER DO K 796.2 ELEVATED BLOOD PRESSURE READING WITHOUT DIAGNOSIS OF HYPERTENSION 06/20/2012 381.81 EUSTACHIAN TUBE DYSFUNCTION 06/20/2012 796.2 ELEVATED BLOOD PRESSURE READING WITHOUT DIAGNOSIS OF HYPERTENSION 06/20/2012 381.81 EUSTACHIAN TUBE DYSFUNCTION 06/20/2012 796.2 ELEVATED BLOOD PRESSURE READING WITHOUT DIAGNOSIS OF HYPERTENSION 06/20/2012 381.81 EUSTACHIAN TUBE DYSFUNCTION 06/20/2012 796.2 ELEVATED BLOOD PRESSURE READING WITHOUT DIAGNOSIS OF HYPERTENSION 06/20/2012 NETTA RYDER DO K 381.81 EUSTACHIAN TUBE DYSFUNCTION 06/20/2012 NETTA RYDER DO K 796.2 ELEVATED BLOOD PRESSURE READING WITHOUT DIAGNOSIS OF HYPERTENSION 06/20/2012 BARRETT RYDER DOA K 381.81 EUSTACHIAN TUBE DYSFUNCTION 06/20/2012 RYDER BARRETT PASCALA K 796.2 ELEVATED BLOOD PRESSURE READING WITHOUT DIAGNOSIS OF HYPERTENSION 06/20/2012 NETTA RYDER DO K 381.81 EUSTACHIAN TUBE DYSFUNCTION 06/20/2012 RYDER DO, NETTA K 796.2 ELEVATED BLOOD PRESSURE READING WITHOUT DIAGNOSIS OF HYPERTENSION 06/20/2012 RYDER DO, NETTA K 381.81 EUSTACHIAN TUBE DYSFUNCTION 06/20/2012 RYDER DO, NETTA K 796.2 ELEVATED BLOOD PRESSURE READING WITHOUT DIAGNOSIS OF HYPERTENSION 06/20/2012 RYDER DO, NETTA K 381.81 EUSTACHIAN TUBE DYSFUNCTION 06/20/2012 RYDER DO, NETTA K 796.2 ELEVATED BLOOD PRESSURE READING WITHOUT DIAGNOSIS OF HYPERTENSION 06/20/2012 RYDER DO, NETTA K 381.81 EUSTACHIAN TUBE DYSFUNCTION 06/20/2012 RYDER DO, NETTA K 796.2 ELEVATED BLOOD PRESSURE READING WITHOUT DIAGNOSIS OF HYPERTENSION 06/20/2012 LIVAN FLOOR PRESS OPERATOR MARS R 381.81 EUSTACHIAN TUBE DYSFUNCTION 06/20/2012 LIVAN FLOOR PRESS OPERATOR, MARS R 796.2 ELEVATED BLOOD PRESSURE READING WITHOUT DIAGNOSIS OF HYPERTENSION 06/20/2012 RYDER DO, NETTA K 381.81 EUSTACHIAN TUBE DYSFUNCTION 06/20/2012 RYDER DO, NETTA K 796.2 ELEVATED BLOOD PRESSURE READING WITHOUT DIAGNOSIS OF HYPERTENSION 07/15/2012 368.8 OTHER SPECIFIED VISUAL DISTURBANCES 07/15/2012 784.0 HEADACHE 07/15/2012 368.8 OTHER SPECIFIED VISUAL DISTURBANCES 07/15/2012 784.0 HEADACHE 07/15/2012 RYDER DO, NETTA K 368.8 OTHER SPECIFIED VISUAL DISTURBANCES 07/15/2012 RYDER DO, NETTA K 784.0 HEADACHE 07/15/2012 RYDER DO, NETTA K 368.8 OTHER SPECIFIED VISUAL DISTURBANCES 07/15/2012 RYDER DO, NETTA K 784.0 HEADACHE 07/15/2012 368.8 OTHER SPECIFIED VISUAL DISTURBANCES 07/15/2012 784.0 HEADACHE 07/15/2012 368.8 OTHER SPECIFIED VISUAL DISTURBANCES 07/15/2012 784.0 HEADACHE 07/15/2012 368.8 OTHER SPECIFIED VISUAL DISTURBANCES 07/15/2012 784.0 HEADACHE 07/15/2012 RYDER DO, NETTA K 368.8 OTHER SPECIFIED VISUAL DISTURBANCES 07/15/2012 RYDER DO, NETTA K 784.0 HEADACHE 07/15/2012 RYDER DO, NETTA K 368.8 OTHER SPECIFIED VISUAL DISTURBANCES 07/15/2012 RYDER DO, NETTA K 784.0 HEADACHE 07/15/2012 RYDER DO, NETTA K 368.8 OTHER SPECIFIED VISUAL DISTURBANCES 07/15/2012 RYDER DO, NETTA K 784.0 HEADACHE 07/15/2012 RYDER DO, NETTA K 368.8 OTHER SPECIFIED VISUAL DISTURBANCES 07/15/2012 RYDER DO, NETTA K 784.0 HEADACHE 07/15/2012 RYDER DO, NETTA K 368.8 OTHER SPECIFIED VISUAL DISTURBANCES 07/15/2012 RYDER DO, NETTA K 784.0 HEADACHE 07/15/2012 RYDER DO, NETTA K 368.8 OTHER SPECIFIED VISUAL DISTURBANCES 07/15/2012 RYDER DO, NETTA K 784.0 HEADACHE 07/15/2012 LIVAN MUNIZ, MARS R 368.8 OTHER SPECIFIED VISUAL DISTURBANCES 07/15/2012 RAFAELA LICONA APRNINA R 784.0 HEADACHE 07/15/2012 RYDER DO, NETTA K 368.8 OTHER SPECIFIED VISUAL DISTURBANCES 07/15/2012 RYDER DO, NETTA K 784.0 HEADACHE 10/04/2012 356.9 NEUROPATHY 10/04/2012 700 CALLUS/CORN 10/04/2012 RYDER DO, NETTA K 356.9 NEUROPATHY 10/04/2012 RYDER DO, NETTA K 700 CALLUS/CORN 10/04/2012 RYDER DO, NETTA K 356.9 NEUROPATHY 10/04/2012 RYDER DO, NETTA K 700 CALLUS/CORN 10/04/2012 356.9 NEUROPATHY 10/04/2012 700 CALLUS/CORN 10/04/2012 356.9 NEUROPATHY 10/04/2012 700 CALLUS/CORN 10/04/2012 356.9 NEUROPATHY 10/04/2012 700 CALLUS/CORN 10/04/2012 RYDER DO, NETTA K 356.9 NEUROPATHY 10/04/2012 RYDER DO, NETTA K 700 CALLUS/CORN 10/04/2012 RYDER DO, NETTA K 356.9 NEUROPATHY 10/04/2012 RYDER DO, NETTA K 700 CALLUS/CORN 10/04/2012 RYDER DO, NETTA K 356.9 NEUROPATHY 10/04/2012 RYDER DO, NETTA K 700 CALLUS/CORN 10/04/2012 RYDER DO, NETTA K 356.9 NEUROPATHY 10/04/2012 RYDER DO, NETTA K 700 CALLUS/CORN 10/04/2012 RYDER DO, NETTA K 356.9 NEUROPATHY 10/04/2012 RYDER DO, NETTA K 700 CALLUS/CORN 10/04/2012 LIVAN MUNIZ MARS R 356.9 NEUROPATHY 10/04/2012 LIVAN MUNIZ MARS R 700 CALLUS/CORN 10/04/2012 RYDER DO, NETTA K 356.9 NEUROPATHY 10/04/2012 RYDER DO, NETTA K 700 CALLUS/CORN 10/29/2012 RYDER DO, NETTA K 729.5 PAIN IN LIMB 10/29/2012 RYDER DO, NETTA K 729.5 PAIN IN LIMB 10/29/2012 729.5 PAIN IN LIMB 10/29/2012 729.5 PAIN IN LIMB 10/29/2012 729.5 PAIN IN LIMB 10/29/2012 RYDER DO, NETTA K 729.5 PAIN IN LIMB 10/29/2012 RYDER DO, NETTA K 729.5 PAIN IN LIMB 10/29/2012 RYDER DO, NETTA K 729.5 PAIN IN LIMB 10/29/2012 RYDER DO, NETTA K 729.5 PAIN IN LIMB 10/29/2012 RYDER DO, NETTA K 729.5 PAIN IN LIMB 10/29/2012 MARS LICONA APRN R 729.5 PAIN IN LIMB 10/29/2012 RYDER DO, NETTA K 729.5 PAIN IN LIMB 11/29/2012 V06.1 TDAP DX 11/29/2012 V06.1 TDAP DX 11/29/2012 V06.1 TDAP DX 11/29/2012 RYDER DO, NETTA K V06.1 TDAP DX 11/29/2012 RYDER DO, NETTA K V06.1 TDAP DX 11/29/2012 RYDER DO, NETTA K V06.1 TDAP DX 11/29/2012 RYDER DO, NETTA K V06.1 TDAP DX 11/29/2012 RYDER DO, NETTA K V06.1 TDAP DX 11/29/2012 RAFAELA LICONA APRNINA R V06.1 TDAP DX 11/29/2012 RYDER DO, NETTA K V06.1 TDAP DX 01/13/2013 592.0 CALCULUS OF KIDNEY 01/13/2013 592.0 CALCULUS OF KIDNEY 01/13/2013 592.0 CALCULUS OF KIDNEY 01/13/2013 RYDER DO, NETTA K 592.0 CALCULUS OF KIDNEY 01/13/2013 RYDER DO, NETTA K 592.0 CALCULUS OF KIDNEY 01/13/2013 RYDER DO, NETTA K 592.0 CALCULUS OF KIDNEY 01/13/2013 RYDER DO, NETTA K 592.0 CALCULUS OF KIDNEY 01/13/2013 RYDER DO, NETTA K 592.0 CALCULUS OF KIDNEY 01/13/2013 LIVAN PATELN, MARS R 592.0 CALCULUS OF KIDNEY 01/13/2013 RYDER DO, NETTA K 592.0 CALCULUS OF KIDNEY 12/26/2013 RYDER DO, NETTA K 599.0 URINARY TRACT INFECTION 12/26/2013 RYDER DO, NETTA K 599.0 URINARY TRACT INFECTION 12/26/2013 RYDER DO, NETTA K 599.0 URINARY TRACT INFECTION 12/26/2013 RYDER DO, NETTA K 599.0 URINARY TRACT INFECTION 12/26/2013 LIVAN PATELN, MARS R 599.0 URINARY TRACT INFECTION 12/26/2013 RYDER DO, NETTA K 599.0 URINARY TRACT INFECTION 03/13/2014 RYDER DO, NETTA K 592.0 CALCULUS OF KIDNEY 03/13/2014 RYDER DO, NETTA K 599.70 HEMATURIA UNSPECIFIED 03/13/2014 RYDER DO, NETTA K 592.0 CALCULUS OF KIDNEY 03/13/2014 RYDER DO, NETTA K 599.70 HEMATURIA UNSPECIFIED 03/13/2014 RYDER DO, NETTA K 592.0 CALCULUS OF KIDNEY 03/13/2014 RYDER DO, NETTA K 599.70 HEMATURIA UNSPECIFIED 03/13/2014 LIVAN MUNIZ, MARS R 592.0 CALCULUS OF KIDNEY 03/13/2014 LIVAN MUNIZ, MARS R 599.70 HEMATURIA UNSPECIFIED 03/13/2014 RYDER DO, NETTA K 592.0 CALCULUS OF KIDNEY 03/13/2014 RYDER DO, NETTA K 599.70 HEMATURIA UNSPECIFIED 07/14/2014 RYDER DO, NETTA K 846.9 UNSPECIFIED SITE OF SACROILIAC REGION SPRAIN 07/14/2014 RYDER DO, NETTA K V04.81 FLU SHOT 07/14/2014 RYDER DO, NETTA K V15.09 PERSONAL HISTORY OF OTHER ALLERGY OTHER THAN TO MEDICINAL AGENTS 07/14/2014 LIVAN MUNIZ, MARS R 846.9 UNSPECIFIED SITE OF SACROILIAC REGION SPRAIN 07/14/2014 RAFAELA LICONA APRNINA R V04.81 FLU SHOT 07/14/2014 LIVAN MUNIZ, MARS R V15.09 PERSONAL HISTORY OF OTHER ALLERGY OTHER THAN TO MEDICINAL AGENTS 07/14/2014 NETTA RYDER DO K 846.9 UNSPECIFIED SITE OF SACROILIAC REGION SPRAIN 07/14/2014 NETTA RYDER DO K V04.81 FLU SHOT 07/14/2014 NETTA RYDER DO K V15.09 PERSONAL HISTORY OF OTHER ALLERGY OTHER THAN TO MEDICINAL AGENTS 10/14/2014 LIVAN FLOOR PRESS OPERATOR, MARS R 782.0 DISTURBANCE OF SKIN SENSATION 10/14/2014 BRITNI PASCAL NETTA K 782.0 DISTURBANCE OF SKIN SENSATION 10/30/2014 BRITNI PASCAL NETTA K 338.29 OTHER CHRONIC PAIN 04/28/2016 ELSA HEWITT, YEISON M Ot 591 HYDRONEPHROSIS 04/28/2016 MILA VENTURASHUA M Ot 592.1 CALCULUS OF URETER 04/28/2016 MILA VENTURASHUA M Ot 599.0 URIN TRACT INFECTION NOS 04/28/2016 MILA VENTURASHUA M Ot 789.00 ABDOMINAL PAIN, UNSPECIFIED SITE 04/28/2016 MILA VENTURASHUA M Ot 592.0 CALCULUS OF KIDNEY 04/28/2016 MILA VENTURASHUA M Ot 592.1 CALCULUS OF URETER 04/28/2016 ELSA HEWITT YEISON M Ot 599.70 HEMATURIA, UNSPECIFIED 05/01/2016 BRENDAN DARDEN HOME BASED ASSISTANT Ot R07.9 CHEST PAIN, UNSPECIFIED 06/07/2016 MILA VENTURASHUA M Ot 591 HYDRONEPHROSIS 06/07/2016 MILA VENTURASHUA M Ot 592.1 CALCULUS OF URETER 06/07/2016 MILA VENTURASHUA M Ot 599.0 URIN TRACT INFECTION NOS 06/07/2016 ELSA HEWITT YEISON M Ot 789.00 ABDOMINAL PAIN, UNSPECIFIED SITE 06/07/2016 MILA VENTURASHUA M Ot 592.0 CALCULUS OF KIDNEY 06/07/2016 MILA VENTURASHUA M Ot 592.1 CALCULUS OF URETER 06/07/2016 ELSA HEWITT YEISON M Ot 599.70 HEMATURIA, UNSPECIFIED 06/07/2016 BRENDAN DARDEN HOME BASED ASSISTANT Ot R07.9 CHEST PAIN, UNSPECIFIED 06/07/2016 MILA VENTURASHUA M Ot 591 HYDRONEPHROSIS 06/07/2016 ELSA HEWITT YEISON M Ot 592.1 CALCULUS OF URETER 06/07/2016 HUNTER PA, YEISON M Ot 599.0 URIN TRACT INFECTION NOS 06/07/2016 ELSA HEWITT, YEISON M Ot 789.00 ABDOMINAL PAIN, UNSPECIFIED SITE 06/07/2016 ELSA PA, YEISON M Ot 592.0 CALCULUS OF KIDNEY 06/07/2016 ELSA HEWITT, YEISON M Ot 592.1 CALCULUS OF URETER 06/07/2016 ELSA HEWITT, YEISON M Ot 599.70 HEMATURIA, UNSPECIFIED 06/07/2016 BRENDAN DARDEN Ot R07.9 CHEST PAIN, UNSPECIFIED 06/28/2016 ERICKA ADDISON APRN Ot R07.81 PLEURODYNIA 10/29/2018 ELSA HEWITT, YEISON M Ot 591 HYDRONEPHROSIS 10/29/2018 ELSA HEWITT, YEISON M Ot 592.1 CALCULUS OF URETER 10/29/2018 ELSA HEWITT, YEISON M Ot 599.0 URIN TRACT INFECTION NOS 10/29/2018 ELSA HEWITT, YEISON M Ot 789.00 ABDOMINAL PAIN, UNSPECIFIED SITE 10/29/2018 ELSA HEWITT, YEISON M Ot 592.0 CALCULUS OF KIDNEY 10/29/2018 ELSA HEWITT, YEISON M Ot 592.1 CALCULUS OF URETER 10/29/2018 ELSA HEWITT, YEISON M Ot 599.70 HEMATURIA, UNSPECIFIED 10/29/2018 BRENDAN DARDEN Ot R07.9 CHEST PAIN, UNSPECIFIED 10/29/2018 ERICKA ADDISON APRN Ot R07.81 PLEURODYNIA 01/07/2019 ELSA HEWITT, YEISON M Ot 591 HYDRONEPHROSIS 01/07/2019 ELSA HEWITT, YEISON M Ot 592.1 CALCULUS OF URETER 01/07/2019 ELSA HEWITT, YEISON M Ot 599.0 URIN TRACT INFECTION NOS 01/07/2019 ELSA HEWITT, YEISON M Ot 789.00 ABDOMINAL PAIN, UNSPECIFIED SITE 01/07/2019 ELSA HEWITT, YEISON M Ot 592.0 CALCULUS OF KIDNEY 01/07/2019 ELSA HEWITT, YEISON M Ot 592.1 CALCULUS OF URETER 01/07/2019 ELSA HEWITT, YEISON M Ot 599.70 HEMATURIA, UNSPECIFIED 01/07/2019 BRENDAN DARDENP Ot R07.9 CHEST PAIN, UNSPECIFIED 01/07/2019 ERICKA ADDISON APRN Ot R07.81 PLEURODYNIA 01/07/2019 YEISON VENTURA M Ot 591 HYDRONEPHROSIS 01/07/2019 YEISON VENTURA M Ot 592.1 CALCULUS OF URETER 01/07/2019 YEISON VENTURA M Ot 599.0 URIN TRACT INFECTION NOS 01/07/2019 YEISON VENTURA M Ot 789.00 ABDOMINAL PAIN, UNSPECIFIED SITE 01/07/2019 YEISON VENTURA M Ot 592.0 CALCULUS OF KIDNEY 01/07/2019 YEISON VENTURA M Ot 592.1 CALCULUS OF URETER 01/07/2019 YEISON VENTURA M Ot 599.70 HEMATURIA, UNSPECIFIED 01/07/2019 BRENDAN DARDEN Ot R07.9 CHEST PAIN, UNSPECIFIED 01/07/2019 ERICKA ADDISON APRN Ot R07.81 PLEURODYNIA 01/08/2019 GERALDINE MATHIS DO Ot Z01.818 ENCOUNTER FOR OTHER PREPROCEDURAL EXAMIN 01/13/2019 GERALDINE MATHIS DO Ot Z01.818 ENCOUNTER FOR OTHER PREPROCEDURAL EXAMIN 01/13/2019 GERALDINE MATHIS DO Ot Z01.818 ENCOUNTER FOR OTHER PREPROCEDURAL EXAMIN 01/14/2019 YEISON VENTURA M Ot 591 HYDRONEPHROSIS 01/14/2019 YEISON VENTURA M Ot 592.1 CALCULUS OF URETER 01/14/2019 YEISON VENTURA M Ot 599.0 URIN TRACT INFECTION NOS 01/14/2019 YEISON VENTURA M Ot 789.00 ABDOMINAL PAIN, UNSPECIFIED SITE 01/14/2019 YEISON VENTURA M Ot 592.0 CALCULUS OF KIDNEY 01/14/2019 YEISON VENTURA M Ot 592.1 CALCULUS OF URETER 01/14/2019 YEISON VENTURA M Ot 599.70 HEMATURIA, UNSPECIFIED 01/14/2019 BRENDAN DARDEN Ot R07.9 CHEST PAIN, UNSPECIFIED 01/14/2019 ERICKA ADDISON APRN Ot R07.81 PLEURODYNIA Procedures Code Description Performed By Performed On LYLA BOLDEN 09/12/2012 43988 ROUTINE VENIPUNCTURE 10/29/2012 31597 MICRO ALBUMIN-IN HOUSE 10/29/2012 83938 A1C (IN-HOUSE) 10/29/2012 80147 CMP 10/29/2012 [id number] GFR CALC (RESULT ONLY) 10/29/2012 97688 XRAY ABDOMEN, 1 VIEW (KUB) 01/13/2013 93325 ROUTINE VENIPUNCTURE 03/10/2013 Zachariah Miles 03/10/2013 57338 A1C (IN-HOUSE) 03/10/2013 01387 MICRO ALBUMIN-IN HOUSE 03/10/2013 74081 H PYLORI (IN-HOUSE) 03/10/2013 60032 LIPID PANEL 03/10/2013 00197 CMP 03/10/2013 1223404 GFR CALC (RESULT ONLY) 03/10/2013 15026 ROUTINE VENIPUNCTURE 07/21/2013 G0008 FLU ADMINISTRATION ( MEDICARE ONLY) 07/21/2013 37323 MICRO ALBUMIN-IN HOUSE 07/21/2013 22522 A1C (IN-HOUSE) 07/21/2013 [id number] GFR CALC (RESULT ONLY) 07/21/2013 90035 [facility] 07/21/2013 98374 A1C (IN-HOUSE) 12/26/2013 55916 UA W/ CULTURE IF INDICATED 12/26/[address] ABDOMEN & PELVIS W/O CONTRAST 12/26/2013 72272 ROUTINE VENIPUNCTURE 03/13/[address] ABDOMEN & PELVIS W/ & W/ O CONTRAST 03/13/2014 50074 [facility] 03/13/2014 39314 UA LONG DIP 03/13/2014 15722 ROUTINE VENIPUNCTURE 04/06/2014 82347 STONE ANALYSIS 04/06/2014 29773 PTH (intact) (ORDER ONLY) 04/06/2014 36984 URIC ACID 04/06/2014 57919 ROUTINE VENIPUNCTURE 07/14/2014 78250 [facility] 07/14/2014 69379 LIPID PANEL 07/14/2014 2028F FOOT EXAM PERFORMED 07/14/2014 87099 MICRO ALBUMIN-IN HOUSE 07/14/2014 54752 A1C (IN-HOUSE) 07/14/2014 89433 A1C (IN-HOUSE) 10/14/2014 Results Test Result Range Serum or plasma C reactive protein measurement (mass/volume) - 04/28/16 14:14 Serum or plasma C reactive protein measurement (mass/volume) 0.06 mg /dL 0.00-0.50 CBC With Differential/Platelet - 03/01/17 09:17 WBC 7.6 x10E3/uL 3.4-10.8 RBC 5.43 x10E6/uL 4.14-5.80 Hemoglobin 15.5 g/dL 12.6-17.7 Hematocrit 47.8 % 37.5-51.0 MCV 88 fL 79-97 MCH 28.5 pg 26.6-33.0 MCHC 32.4 g/dL 31.5-35.7 RDW 14.4 % 12.3-15.4 Platelets 223 x10E3/uL 150-379 Neutrophils 66 % Lymphs 22 % Monocytes 9 % Eos 2 % Basos 1 % Neutrophils (Absolute) 5.0 x10E3/uL 1.4-7.0 Lymphs (Absolute) 1.7 x10E3/uL 0.7-3.1 Monocytes(Absolute) 0.7 x10E3/uL 0.1-0.9 Eos (Absolute) 0.2 x10E3/uL 0.0-0.4 Baso (Absolute) 0.0 x10E3/uL 0.0-0.2 Immature Granulocytes 0 % Immature Grans (Abs) 0.0 x10E3/uL 0.0-0.1 Comp. Metabolic Panel (14) - 03/01/17 09:17 Glucose, Serum 109 mg/dL 65-99 BUN 10 mg/dL 6-24 Creatinine, Serum 0.61 mg/dL 0.76-1.27 eGFR If NonAfricn Am 119 mL/min/1.73 >59 eGFR If Africn Am 137 mL/min/1.73 >59 BUN/Creatinine Ratio 16 9-20 Sodium, Serum 142 mmol/L 134-144 Potassium, Serum 4.4 mmol/L 3.5-5.2 Chloride, Serum 101 mmol/L 96-106 Carbon Dioxide, Total 25 mmol/L 18-29 Calcium, Serum 9.1 mg/dL 8.7-10.2 Protein, Total, Serum 6.6 g/dL 6.0-8.5 Albumin, Serum 4.4 g/dL 3.5-5.5 Globulin, Total 2.2 g/dL 1.5-4.5 A/G Ratio 2.0 1.2-2.2 Bilirubin, Total 0.2 mg/dL 0.0-1.2 Alkaline Phosphatase, S 67 IU/L 39-117 AST (SGOT) 13 IU/L 0-40 ALT (SGPT) 18 IU/L 0-44 Lipid Panel - 03/01/17 09:17 Cholesterol, Total 123 mg/dL 100-199 Triglycerides 125 mg/dL 0-149 HDL Cholesterol 40 mg/dL >39 VLDL Cholesterol Constantine 25 mg/dL 5-40 LDL Cholesterol Calc 58 mg/dL 0-99 CMP - 11/07/17 12:31 GLUCOSE 85 mg/dL 65-99 UREA NITROGEN (BUN) 12 mg/dL 7-25 CREATININE 0.74 mg/dL 0.60-1.35 eGFR NON-AFR. IRAQI 109 mL/min/1.73m2 > OR=60 eGFR 126 mL/min/1.73m2 > OR=60 BUN/CREATININE RATIO NOT APPLICABLE (calc) 6-22 SODIUM 140 mmol/L 135-146 POTASSIUM 4.2 mmol/L 3.5-5.3 CHLORIDE 104 mmol/L 98-110 CARBON DIOXIDE 30 mmol/L 20-31 CALCIUM 9.5 mg/dL 8.6-10.3 PROTEIN, TOTAL 6.8 g/dL 6.1-8.1 ALBUMIN 4.5 g/dL 3.6-5.1 GLOBULIN 2.3 g/dL (calc) 1.9-3.7 ALBUMIN/GLOBULIN RATIO 2.0 (calc) 1.0-2.5 BILIRUBIN, TOTAL 0.4 mg/dL 0.2-1.2 ALKALINE PHOSPHATASE 74 U/L 40-115 AST 9 U/L 10-40 ALT 17 U/L 9-46 CBC - 11/07/17 12:31 WHITE BLOOD CELL COUNT 10.9 Thousand/uL 3.8-10.8 RED BLOOD CELL COUNT 5.96 Million/uL 4.20-5.80 HEMOGLOBIN 16.9 g/dL 13.2-17.1 HEMATOCRIT 50.6 % 38.5-50.0 MCV 84.9 fL 80.0-100.0 MCH 28.4 pg 27.0-33.0 MCHC 33.4 g/dL 32.0-36.0 RDW 13.1 % 11.0-15.0 PLATELET COUNT 222 Thousand/uL 140-400 MPV 11.4 fL 7.5-12.5 ABSOLUTE NEUTROPHILS 6464 cells/uL 3778-9314 ABSOLUTE LYMPHOCYTES 2987 cells/uL 850-3900 ABSOLUTE MONOCYTES 1014 cells/uL 200-950 ABSOLUTE EOSINOPHILS 283 cells/uL 15-500 ABSOLUTE BASOPHILS 153 cells/uL 0-200 NEUTROPHILS 59.3 % NRG LYMPHOCYTES 27.4 % NRG MONOCYTES 9.3 % NRG EOSINOPHILS 2.6 % NRG BASOPHILS 1.4 % NRG Capillary blood glucose measurement by glucometer (mass/volume) - 01/14/19 09: 27 Capillary blood glucose measurement by glucometer (mass/volume) 127 mg/dL 70-110 Encounters ACCT No. Visit Date/Time Discharge Status Pt. Type Provider Facility Loc./Unit Complaint [id number] 11/02/2014 08:35:00 11/02/2014 23:59:59 [facility] Outpatient NETTA RYDER DO [id number] 10/14/2014 16:17:00 10/14/2014 23:59:59 [facility] Outpatient MARS LICONA APRN [id number] 07/14/2014 10:07:00 07/14/2014 23:59:59 CLS Outpatient NETTA RYDER DO [id number] 04/06/2014 12:16:00 04/06/2014 23:59:59 CLS Outpatient NETTA RYDER DO [id number] 03/13/2014 11:51:00 03/13/2014 23:59:59 CLS Outpatient NETTA RYDER DO [id number] 12/26/2013 16:16:00 12/26/2013 23:59:59 CLS Outpatient NETTA RYDER DO [id number] 07/21/2013 10:38:00 07/21/2013 23:59:59 CLS Outpatient NETTA RYDER DO [id number] 11/29/2012 13:51:00 11/29/2012 23:59:59 CLS Outpatient NETTA RYDER DO [id number] 10/29/2012 08:04:00 10/29/2012 23:59:59 CLS Outpatient NETTA RYDER DO [id number] 10/04/2012 10:15:00 10/04/2012 23:59:59 [facility] Outpatient [id number] 09/12/2012 16:52:00 09/12/2012 23:59:59 CLS Outpatient [id number] 07/15/2012 11:20:00 07/15/2012 23:59:59 CLS Outpatient NETTA RYDER DO [id number] 04/07/2013 14:37:00 Document Registration [id number] 03/10/2013 11:58:00 Document Registration [id number] 01/13/2013 10:04:00 Document Registration [id number] 03/02/2017 08:06:00 Document Registration [id number] 10/28/2018 11:20:00 10/28/2018 23:59:59 CLS Out[facility] [id number] 11/07/2017 11:20:00 Document Registration [id number] 01/13/2019 13:06:00 01/13/2019 13:19:00 DIS Outpatient GERALDINE MATHIS DO [facility] PREOP COLONOSCOPY/EGD [id number] 08/05/2018 15:09:00 08/05/2018 23:59:59 CLS Outpatient COLTHARP GIAN PASCAL [facility] RAD XRAY LEFT WRIST [id number] 05/16/2017 07:34:00 05/16/2017 23:59:59 CLS Preadmit MEENU SEGUNDO FLOOR PRESS OPERATOR [facility] RAD THUMB PAIN, DECREASED FLEXION [id number] 06/07/2016 14:49:00 06/07/2016 23:59:59 CLS Outpatient ERICKA ADDISON FLOOR PRESS OPERATOR [facility] RAD RIB PAIN ON RT SIDE [id number] 04/28/2016 14:12:00 04/28/2016 23:59:59 CLS Outpatient BRENDAN DARDEN HOME BASED ASSISTANT [facility] LAB CHEST PAIN [id number] 03/13/2014 14:02:00 03/13/2014 23:59:59 CLS Outpatient YEISON VENTURA [facility] RAD HEMATURIA,STONE [id number] 01/21/2014 12:57:00 01/21/2014 23:59:59 CLS Outpatient YEISON VENTURA [facility] RAD UTI,ABD PAIN [id number] 01/14/2019 08:47:00 ACT Outpatient GERALDINE MATHIS DO [facility] ENDO DIARRHEA/HX POLYPS/GERD
--- NOTE | 2019-01-14 11:47 | Progress Note-Post Operative ---
Post-Operative Progess Note Surgeon (s)/Technical Sales Director (s) Surgeon GERALDINE MATHIS DO Technical Sales Director: na Pre-Operative Diagnosis gerd, hx polyps, diarrhea Post-Operative Diagnosis gastritis, polyps Procedure & Operative Findings Date of Procedure 01/14/19 Procedure Performed/Findings egd c biopsies, colonoscopy hot bx polypectomy x 3 Anesthesia Type per mda Estimated Blood Loss Estimated blood loss (mL): none Specimens/Packing Specimens Removed antrum, body, ge, cecal polyp, ascending colon polyp and transverse colon polyp GERALDINE MATHIS DO Jan 14, 2019 11:47
[2019-01-14] MEDS ORDERED: PANT40TA2 PO (11:48)
--- NOTE | 2019-01-14 11:48 | Discharge Inst-Simple/Standard ---
Discharge Inst-Standard Discharge Medications New, Converted or Re-Newed RX: Transmitted to Pharmacy Patient Instructions/Follow Up Plan of Care/Instructions/FU: 3 weeks lico Activity as Tolerated: Yes Discharge Diet: Regular Diet GERALDINE MATHIS DO Jan 14, 2019 11:48
[2019-01-14 12:05] VITALS: BP 113/67
[2019-01-14 12:35] VITALS: BP 117/65
--- NOTE | 2019-01-14 16:12 | OPERATIVE REPORT ---
DATE OF SERVICE: 01/14/2019 PREOPERATIVE DIAGNOSES: Gastroesophageal reflux disease, history of polyps, diarrhea. POSTOPERATIVE DIAGNOSES: Gastritis, polyps. PROCEDURE: EGD with biopsies, colonoscopy with hot biopsy polypectomy x3. ANESTHESIA: Per MDA. ESTIMATED BLOOD LOSS: None. COMPLICATIONS: None. INDICATIONS: The patient is a 48-year-old male with reflux, history of polyps and diarrhea. He understands risks and benefits of procedure and wished to proceed with procedure. Consent was signed on the chart. DESCRIPTION OF PROCEDURE: The patient was taken to the endoscopy suite, placed in left lower recumbent position. Timeout was performed. Scope was inserted in mouth, down the esophagus, stomach and into the duodenum without difficulty. There are no polyps, masses or ulcerations in the duodenum. Scope was slowly retracted back into the stomach, where it was further insufflated. Erythematous changes and reactive gastropathy appearance. Biopsies of the antrum and body were obtained. Scope was retroflexed noting no other pathology. Scope was returned to its normal position, slowly withdrawn to the distal esophagus. There are no polyps, masses or ulcerations. Slight erythematous changes. Biopsy was obtained. Scope was then slowly retracted back to completely remove, noting no other pathology. Digital rectal exam was performed. There were no palpable polyps, mass or ulcerations. The scope was inserted in the rectum and advanced all the way to the cecum with minimal difficulty. Prep was adequate. Scope was then slowly retracted back. There was a small polyp in the cecum, which hot biopsy polypectomy was performed. Scope was then continuously retracted back into the ascending colon, another polyp was visualized. Hot biopsy polypectomy was performed. Scope was continuously retracted back into the transverse colon, another polyp was present, which hot biopsy polypectomy was performed. Scope was continuously retracted back. There were no other polyps, mass or ulcerations visualized within the remainder of the transverse, descending and sigmoid colon. Once in the rectum, scope was retroflexed noting no other pathology. Scope was returned to its normal position, slowly withdrawn until completely removed. The patient tolerated procedure well without any complications, taken to recovery room in stable condition. RECOMMENDATIONS: The patient will need a repeat colonoscopy in approximately 3 to 5 years. The patient will be started on Protonix 40 mg daily. The patient will follow up in the office in 3 weeks to go over pathology to see how his symptoms are doing at that time. Job ID: [id number] DocumentID: [id number] Dictated Date: 01/14/2019 11:52:23 Maintenance Foreman Date: 01/14/2019 16:12:05 Dictated By: GERALDINE MATHIS DO
== END 2019-01-14 12:35 | disposition home or self-care (01) ==
LOC: ENDO 08:47
PROVIDERS: ATTEND Surgery
DX: D12.0 Benign neoplasm of cecum (principal); D12.2 Benign neoplasm of ascending colon; D12.3 Benign neoplasm of transverse colon; R19.7 Diarrhea, unspecified; K29.70 Gastritis, unspecified, without bleeding; K21.0 Gastro-esophageal reflux disease with esophagitis; I10 Essential (primary) hypertension; E11.9 Type 2 diabetes mellitus without complications; F17.210 Nicotine dependence, cigarettes, uncomplicated; Z79.84 Long term (current) use of oral hypoglycemic drugs; Z79.899 Other long term (current) drug therapy
CPT/HCPCS: 82962

== ENCOUNTER 2019-02-03 11:19 | Outpatient (RCR) | payer BC ==
[~2019-02-03 11:19] MED LIST changes: +PANT40TA2 PO
[2019-03-11] MEDS ORDERED: TAMS0.4C98 PO (14:13)
[2019-03-11] MEDS ORDERED: PANT40TA3 PO (14:13)
[2019-03-11] MEDS ORDERED: GLIP10TA13 PO (14:13)
[2019-03-11] MEDS ORDERED: LISI10TA2 PO (14:13)
[2019-03-11] MEDS ORDERED: FAMO20TA3 PO (14:13)
[2019-03-11] MEDS ORDERED: ATOR10TA66 PO (14:13)
[2019-03-11] MEDS ORDERED: VARE0.5T PO (14:13)
[2019-03-11] MEDS ORDERED: METF500T8 PO (14:13)
[2019-03-11] MEDS ORDERED: RABE20TA27 PO (14:13)
[2019-03-11] MEDS ORDERED: DAPA10TA PO (14:13)
[2019-03-13] MEDS ORDERED: DOCU-143 PO (10:47)
[2019-03-13] MEDS ORDERED: ACHD5005 PO (10:47)
== END 2019-05-04 | disposition home or self-care (01) ==
LOC: LAB 11:19
PROVIDERS: ATTEND Surgery
DX: R19.7 Diarrhea, unspecified (principal)
CPT/HCPCS: 87015; 87045; 87046; 87324; 87328; 87329; 87449; 87493; 87899

== ENCOUNTER 2019-03-11 11:30 | Outpatient (CLI) | payer BC ==
[~2019-03-11] VITALS: Ht 180.3 cm; Wt 96.2 kg
[2019-03-11] MEDS ORDERED: GLIP10TA13 PO (14:13)
[2019-03-11] MEDS ORDERED: ATOR10TA66 PO (14:13)
[2019-03-11] MEDS ORDERED: DAPA10TA PO (14:13)
[2019-03-11] MEDS ORDERED: LISI10TA2 PO (14:13)
[2019-03-11] MEDS ORDERED: VARE0.5T PO (14:13)
[2019-03-11] MEDS ORDERED: PANT40TA3 PO (14:13)
[2019-03-11] MEDS ORDERED: TAMS0.4C98 PO (14:13)
[2019-03-11] MEDS ORDERED: METF500T8 PO (14:13)
[2019-03-11] MEDS ORDERED: RABE20TA27 PO (14:13)
[2019-03-11] MEDS ORDERED: FAMO20TA3 PO (14:13)
== END 2019-03-11 14:18 | disposition home or self-care (01) ==
LOC: PREOP 11:30
PROVIDERS: ATTEND Surgery
DX: Z01.818 Encounter for other preprocedural examination (principal)

== ENCOUNTER 2019-03-13 07:59 | Day surgery (SDC) | payer BC ==
[2019-03-13] VITALS (14 sets, daily range): BP systolic 100–129; BP diastolic 53–84
[~2019-03-13] VITALS: Ht 180.3 cm; Wt 96.2 kg
[~2019-03-13 07:59] MED LIST changes: +ATOR10TA66 PO; +DAPA10TA PO; +FAMO20TA3 PO; +GLIP10TA13 PO; +LISI10TA2 PO; +METF500T8 PO; +PANT40TA3 PO; +RABE20TA27 PO; +TAMS0.4C98 PO; +VARE0.5T PO
[2019-03-13] MEDS ORDERED: BUP/EPI 0.5% 1:200,000 (SENSORCAINE) 30 ML VIAL ONE (08:16)
[2019-03-13] MEDS ORDERED: LIDOCAINE 1% INJ 20 ML 20 ML VIAL ONE (08:16)
[2019-03-13] MEDS ORDERED: ceFAZolin INJECTION 1,000 MG ONE (08:31)
[2019-03-13] MEDS ORDERED: WATER (STERILE) FOR INJECTION 10 ML ONE (08:32)
[2019-03-13] MEDS ORDERED: LACTATED RINGERS 1,000 ML IV PRN (08:38)
[2019-03-13 08:41] LABS: BASOPHILS # (AUTO) 0.1 10^3/uL (0.0-0.1); BASOPHILS % (AUTO) 1 % (0-10); EOSINOPHILS # (AUTO) 0.3 10^3/uL (0.0-0.3); EOSINOPHILS % (AUTO) 3 % (0-10); HEMATOCRIT 45 % (40-54); HEMOGLOBIN 15.2 G/DL (13.3-17.7); LYMPHOCYTES # (AUTO) 1.8 X 10^3 (1.0-4.0); LYMPHOCYTES % (AUTO) 20 % (12-44); MEAN CORPUSCULAR HEMOGLOBIN 29 PG (25-34); MEAN CORPUSCULAR HGB CONC 34 G/DL (32-36); MEAN CORPUSCULAR VOLUME 85 FL (80-99); MEAN PLATELET VOLUME 11.3 FL (7.4-10.4); MONOCYTES % (AUTO) 11 % (0-12); NEUTROPHILS # (AUTO) 5.7 X 10^3 (1.8-7.8); NEUTROPHILS % (AUTO) 65 % (42-75); PLATELET COUNT 203 10^3/uL (130-400); RED CELL DISTRIBUTION WIDTH 12.9 % (10.0-14.5); WHITE BLOOD COUNT 8.9 10^3/uL (4.3-11.0)
[2019-03-13] MEDS ORDERED: ceFAZolin INJECTION 1,000 MG in WATER (STERILE) FOR INJECTION 10 ML IV ONE (08:45)
[2019-03-13] MEDS: LACTATED RINGERS 1,000 ML IV PRN ×2 (08:46→10:40)
[2019-03-13] MEDS ORDERED: SEVOFLURANE (ULTANE) 15 ML INHAL SOLN ONE ×3 (09:18→10:45)
[2019-03-13] MEDS ORDERED: LIDOCAINE PF 2% 5 ML (XYLOCAINE) VIAL ONE (09:18)
[2019-03-13] MEDS ORDERED: proPOfol 200 MG/20 ML (DIPRIVAN) VIAL IV ONE (09:18)
[2019-03-13] MEDS ORDERED: MIDAZOLAM 2 MG/2 ML (VERSED) VIAL ONE (09:19)
[2019-03-13] MEDS ORDERED: FAMOTIDINE 20MG/2ML IV (PEPCID) ONE (09:19)
[2019-03-13] MEDS ORDERED: fentaNYL INJECTION 100 MCG/2 ML AMP ONE (09:19)
[2019-03-13] MEDS ORDERED: ONDANSETRON 4 MG/2 ML (SDV) Z0FRAN ONE (09:22)
[2019-03-13] MEDS ORDERED: ROCURONIUM 10 MG/ML 5 ML SYRINGE IV ONE (09:23)
--- NOTE | 2019-03-13 09:33 | Progress Note-Pre Operative ---
Pre-Operative Progress Note H&P Reviewed The H&P was reviewed, patient examined and no changes noted. Date Seen by Provider: Mar 13, 2019 Time Seen by Provider: 09:32 Date H&P Reviewed: Mar 13, 2019 Time H&P Reviewed: 09:32 Pre-Operative Diagnosis: umbilical hernia GERALDINE MATHIS DO Mar 13, 2019 09:33
[2019-03-13] MEDS ORDERED: FAMOTIDINE 20MG/2ML IV (PEPCID) IVP ONE (09:45)
[2019-03-13] MEDS ORDERED: PHENYLEPHRINE 100 MCG/ML 10 ML (ANESTHESIA) SYR ONE (10:02)
[2019-03-13] MEDS ORDERED: GLYCOPYRROLATE 0.2 MG/ML (ROBINUL) 2 ML VIAL ONE (10:09)
[2019-03-13] MEDS ORDERED: NEOSTIGMINE 1 MG/ML 5 ML SYRINGE ONE (10:09)
[2019-03-13] MEDS ORDERED: HYDROmorphone 2 MG/ML VIAL (DILAUDID) ONE (10:26)
[2019-03-13] MEDS ORDERED: KETOROLAC 30 MG/ML VIAL ONE (10:38)
--- NOTE | 2019-03-13 10:45 | Progress Note-Post Operative ---
Post-Operative Progess Note Surgeon (s)/Federal Air Marshal (s) Surgeon GERALDINE MATHIS DO Federal Air Marshal: Dr. Becerra Pre-Operative Diagnosis umbilical hernia Post-Operative Diagnosis incarcerated umbilical hernia Procedure & Operative Findings Date of Procedure 03/13/19 Procedure Performed/Findings laparoscopic umbilical hernia repair. Anesthesia Type gen Estimated Blood Loss Estimated blood loss (mL): min Specimens/Packing Specimens Removed na GERALDINE MATHIS DO Mar 13, 2019 10:45
[2019-03-13] MEDS ORDERED: DOCU-143 PO (10:47)
[2019-03-13] MEDS ORDERED: ACHD5005 PO (10:47)
--- NOTE | 2019-03-13 10:49 | Discharge Inst-Simple/Standard ---
Discharge Inst-Standard Discharge Medications New, Converted or Re-Newed RX: RX on Chart Patient Instructions/Follow Up Plan of Care/Instructions/FU: 2-3 weeks Mauricio Activity as Tolerated: No Discharge Diet: Regular Diet Other Inst to Patient Follow up Appt: Make appointment for 2-3 week. Instructions: No lifting greater than 10 pounds. No strenuous activity. May shower in 24 hours, no tub bath or soaking. Use incentive spirometer at home as directed. No Smoking Skin/Wound Care: May remove bandages in 48 hours. You have special glue over incisions it will fall off on its own. Symptoms to Report: Appetite Changes, Extremity Discoloration, Numbness/Tingling, Swelling Increased, Bleeding Excessive, Eyesight Changes, Pain Increased, Urine Color Change, Constipation(Persistent), Fever over 101 degree F, Pain/Pressure in chest, Urinating Difficulty, Cough Up/Vomit Blood, Heart Beat Irreg/Pounding, Pain/Pressure in jaw, Vaginal Bleeding Increase, Cramps in feet or legs, Lightheadedness, Pain/Pressure in shoulder, Diarrhea(Persistent), Memory Changes Suddenly, Questions/Concerns, Weight gain consecutive days, Dizziness/Fainting, Nausea/Vomiting, Shortness of Breath, Weight gain over 2 pounds If questions or concerns contact your physician Or seek help at emergency department. GERALDINE MATHIS DO Mar 13, 2019 10:49
[2019-03-13] MEDS ORDERED: ONDANSETRON 4 MG/2 ML (SDV) Z0FRAN IVP PRN (11:15)
[2019-03-13] MEDS ORDERED: HYDROmorphone 2 MG/ML VIAL (DILAUDID) IV ONE (11:15)
[2019-03-13] MEDS ORDERED: HYDROcodone/APAP 5 MG/325 MG (LORTAB) TAB ONE (12:50)
[2019-03-13] MEDS ORDERED: HYDROcodone/APAP 5 MG/325 MG (LORTAB) TAB PO ONE (13:00)
--- NOTE | 2019-03-13 13:37 | Anesthesia-General Post-Op ---
General Patient Condition Mental Status/LOC: Same as Preop Cardiovascular: Satisfactory Nausea/Vomiting: Absent Respiratory: Satisfactory Pain: Controlled Complications: Absent Post Op Complications Complications None Follow Up Care/Instructions Patient Instructions None needed. Anesthesia/Patient Condition Patient Condition Patient is doing well, no complaints, stable vital signs, no apparent adverse anesthesia problems. No complications reported per nursing. KARISHMA PITT CRNA Mar 13, 2019 13:37
--- NOTE | 2019-03-13 18:58 | OPERATIVE REPORT ---
DATE OF SERVICE: 03/13/2019 PREOPERATIVE DIAGNOSIS: Umbilical hernia. POSTOPERATIVE DIAGNOSIS: Incarcerated umbilical hernia. PROCEDURE: Laparoscopic incarcerated umbilical hernia repair. SURGEON: Christian Martínez DO SENIOR QUALITY CONTROL INSPECTOR: Dr. Becerra, assisted in retraction, dissection and closure. ANESTHESIA: General. ESTIMATED BLOOD LOSS: Minimal. COMPLICATIONS: None. INDICATIONS: The patient is a 48-year-old male with the umbilical hernia that he has had for quite some time. He understands risks and benefits of procedure and wished to proceed with procedure. Consent was signed in the chart. DESCRIPTION OF PROCEDURE: The patient was taken to the operating suite, was prepped and draped in sterile fashion. Timeout was performed. Local anesthetic was infiltrated in the left upper quadrant. A 11-blade scalpel was used to make an incision. Dissection was taken down to the fascia, which was divided. The muscle was divided bluntly. The posterior fascia was divided and the peritoneum was then divided and entering into the abdomen. A balloon trocar was inserted into the abdomen and pneumoperitoneum was achieved. Under direct visualization of the laparoscope, a 5 mm trocar was then placed in the right lower quadrant and one in the left lower quadrant, both under direct visualization. Incarcerated omentum was up through the defect. The hernia sac was then begun to be dissected around until the hernia contents could be reduced. Once reduced, the fat pad was then taken down off the anterior abdominal wall using a [place] with cautery dissection. The falciform ligament was begun to be divided partially for good mesh placement. A 4-1/2 inch Echo Ventralight mesh was then inserted into the abdomen and grasped through a stab incision at the umbilicus, which was then brought up and a SecureStrap tacker was then used to secure the mesh circumferentially around the edge of the mesh and the balloon was removed and an inner crown was created as well. Mesh had good placement, it was adequate coverage. The abdomen was then desufflated. The trocars removed. The peritoneum, posterior fascia and anterior fascia were then closed in usual fashion. The skin was then closed using 4-0 Monocryl in a subcuticular fashion. The abdomen was then washed and dried and Skin Affix was placed over the incisions and sterile bandage were applied. The patient tolerated procedure well without any complications. He was taken to the recovery room in stable condition. Job ID: [id number] DocumentID: [id number] Dictated Date: 03/13/2019 13:15:56 Pharmacist Manager Date: 03/13/2019 18:57:41 Dictated By: DO NETO SALMERON
[2019-03-14] MEDS ORDERED: FAMOTIDINE 20MG/2ML IV (PEPCID) IVP SCH (09:00)
== END 2019-03-13 14:15 | disposition home or self-care (01) ==
LOC: SDC 07:59
PROVIDERS: ATTEND Surgery
DX: K42.0 Umbilical hernia with obstruction, without gangrene (principal); E11.9 Type 2 diabetes mellitus without complications; I10 Essential (primary) hypertension; K21.9 Gastro-esophageal reflux disease without esophagitis; K52.9 Noninfective gastroenteritis and colitis, unspecified; F17.210 Nicotine dependence, cigarettes, uncomplicated; Z79.84 Long term (current) use of oral hypoglycemic drugs; Z79.899 Other long term (current) drug therapy
CPT/HCPCS: 36415; 82962; 85025; 87081

== ENCOUNTER → 2021-06-28 | Outpatient (CLI) | payer BC ==
[~2021-06-28] MED LIST changes: +ACHD5005 PO; +DOCU-143 PO; -LISI10TA2 PO; +LISI10TA25 PO; +METF-865 PO; -METF500T8 PO; -PANT40TA3 PO; +PANT40TA52 PO; -RABE20TA27 PO; +RABE20TA30 PO; -TAMS0.4C98 PO; +TMSL.4C PO
--- NOTE | 2021-06-28 14:34 | Diagnostic Imaging Report ---
PROCEDURE: CT abdomen and pelvis without contrast. TECHNIQUE: Multiple contiguous axial images were obtained through the abdomen and pelvis without the use of intravenous contrast. Auto Exposure Controls were utilized during the CT exam to meet ALARA standards for radiation dose reduction. INDICATION: Difficulty urinating. Patient's history of kidney stones. Correlation is made with prior CT from 03/13/2014. The lung bases are clear. The liver and gallbladder are unremarkable. The pancreas and spleen are unremarkable. No adrenal mass is detected. No renal calculi are identified. No ureteral or bladder calculi are identified. There is no evidence of hydronephrosis. Aorta is calcified but nonaneurysmal. Small and large bowel loops are normal caliber. No obstruction. No free fluid is identified. Prostate is unremarkable. Bony structures are nonacute. IMPRESSION: Unremarkable noncontrast CT of the abdomen and pelvis. There is no evidence of urinary tract calculi or obstruction. Dictated by: Dictated on workstation # [id number]
== END ==
LOC: RAD 13:55
PROVIDERS: ATTEND Urology
DX: R39.198 Other difficulties with micturition (principal); Z87.442 Personal history of urinary calculi
CPT/HCPCS: 74176

== ENCOUNTER 2022-04-12 10:20 | Outpatient (RCR) | payer OTHER ==
--- NOTE | 2022-04-12 13:32 | Diagnostic Imaging Report ---
INDICATION: Hyperthyroidism. Patient was administered 200 uCi of I-123 orally and a 4 hour and 24 hour thyroid uptake was obtained. In addition, thyroid scan was performed. 4 hour uptake is 9.4%. 24-hour uptake is 31%. Normal 24-hour thyroid uptake is 10-30%. Thyroid scan shows fairly homogeneous activity throughout both lobes of the thyroid gland. No hot or cold nodules are identified. IMPRESSION: 1. Normal thyroid scan. 2. Minimal elevation of 24-hour thyroid uptake at 31%. Dictated by: Dictated on workstation # [id number]
== END 2022-04-30 | disposition home or self-care (01) ==
LOC: CARD 10:20
PROVIDERS: ATTEND Family Medicine
DX: E05.80 Other thyrotoxicosis without thyrotoxic crisis or storm (principal)
CPT/HCPCS: 78014

== ENCOUNTER → 2022-12-22 | Outpatient (CLI) | payer OTHER ==
[~2022-12-22] MED LIST changes: +GADOTERATE 0.5 MMOL/ML (CLARISCAN) 20 ML VIAL IV ONE
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
== END ==
LOC: RAD 09:40
PROVIDERS: ATTEND Family Medicine
DX: D16.9 Benign neoplasm of bone and articular cartilage, unspecified (principal); S89.92XA Unspecified injury of left lower leg, initial encounter; W26.0XXA Contact with knife, initial encounter
CPT/HCPCS: 73720